=== PATIENT | male | born 1940 | race Caucasian/White ===

== ENCOUNTER 2017-09-17 16:12 | Outpatient (CLI) | payer MEDICARE ==
[2017-09-17 16:55] LABS: Hematocrit 35.3 % (42.0-52.0); Mean Platelet Volume 5.7 fL (7.4-10.4); Red Blood Cell (RBC) Count 3.87 mill/uL (4.70-6.10); White Blood Cell (WBC) Count 9.8 thou/uL (4.8-10.8)
[2017-09-17 17:27] LABS: Anion Gap 14 mmol/L (10-20); BUN (Urea Nitrogen) 31 mg/dL (8.4-25.7); Calc. Creatinine Clearance 0 mL/min (70-130); Calcium 9.4 mg/dL (7.8-10.44); Carbon Dioxide 24 mmol/L (23-31); Chloride 103 mmol/L (98-107); Estimated GFR-MDRD 47
== END 2017-09-17 16:13 | disposition home or self-care (01) ==
LOC: LABBT 16:12
PROVIDERS: ATTEND Thoracic Surgery (Cardiothoracic Vascular Surgery)
DX: Z01.812 Encounter for preprocedural laboratory examination (principal); I25.10 Atherosclerotic heart disease of native coronary artery without angina pectoris; Z95.1 Presence of aortocoronary bypass graft
CPT/HCPCS: 80048; 85027; 86850; 86900; 86901

== ENCOUNTER 2017-09-18 10:20 | Inpatient (IN) | payer MEDICARE ==
[2017-09-17 14:20] VITALS: BMI 44.3
[2017-09-18] MEDS ORDERED: Heparin 10,000 UNITS/1 ML VIAL 30,000 UNITS in Sodium Chloride 0.9% 1,000 ML FS SCH (11:45)
[2017-09-18] MEDS ORDERED: Midazolam HCl 2 mg/2 ml Vial ONE (12:00)
[2017-09-18] MEDS ORDERED: Fentanyl 100 MCG/2 ML VIAL ONE (12:11)
[2017-09-18] MEDS ORDERED: Vecuronium 10 MG VIAL ONE ×3 (12:12→14:55)
[2017-09-18] MEDS ORDERED: Midazolam HCl 5 mg/5 ml Vial ONE (12:12)
[2017-09-18] MEDS ORDERED: Dexmedetomidine 200 MCG/2 ML VIAL ONE (12:12)
[2017-09-18] MEDS ORDERED: CEFAZOLIN/Water 2 GM/20 ML SYRINGE ONE (12:42)
[2017-09-18] MEDS ORDERED: Insulin Regular 300 UNITS/3 ML VIAL ONE (13:55)
[2017-09-18] MEDS ORDERED: hydrALAZINE 20 MG/ML VIAL ONE (14:07)
[2017-09-18] MEDS ORDERED: Lidocaine 1% PF 5 ML VIAL ONE (14:55)
[2017-09-18] MEDS ORDERED: Nitroglycerin 50 MG/250 ML BOT ONE (14:55)
[2017-09-18] MEDS ORDERED: ePHEDrine/0.9% NaCl/PF SYRINGE 50 mg/10 ml ONE (14:55)
[2017-09-18] MEDS ORDERED: Glycopyrrolate 0.2 MG/ML 5 ML SYRINGE ONE (14:55)
[2017-09-18] MEDS ORDERED: PHENYLEPHRINE-NS 100 MCG/ML 10 ML SYRINGE ONE ×3 (14:55→15:22)
[2017-09-18] MEDS ORDERED: Esmolol 100 MG/10 ML VIAL ONE (14:55)
[2017-09-18] MEDS ORDERED: Heparin 30,000 units/30 ml VIAL ONE (14:55)
[2017-09-18] MEDS ORDERED: Protamine Sulfate 250 MG/25 ML VIAL ONE (14:55)
[2017-09-18] MEDS ORDERED: Aminocaproic Acid 5 GM/20 ML VIAL ONE (14:55)
[2017-09-18] MEDS ORDERED: Phenylephrine 10 MG/NS 250 ML 250 ML ONE (15:22)
[2017-09-18 18:11] LABS: Actual Bicarbonate (HCO3a) 22.1 mEq/L (22-26); CO2 Tension 44.8 mmHg (35.0-45.0); Calcium, Ionized 1.1 mmol/L (1.12-1.30); Hematocrit-ABG 29.3 % (42.0-52.0); Hemoglobin (Hb) 9.7 g/dL (14.0-18.0); O2 Tension (PaO2) 80.3 mmHg (80.0-100.0); pH, Arterial 7.31 (7.35-7.45)
[2017-09-18 18:13] LABS: Puncture Site RRA ART LINE
[2017-09-18] MEDS ORDERED: Bisacodyl 5 MG TAB PO PRN (18:24)
[2017-09-18] MEDS ORDERED: hydrALAZINE 20 MG/ML VIAL SLOW IVP PRN (18:24)
[2017-09-18] MEDS ORDERED: Guaifenesin DM 100-10/5 ML UDCUP PO PRN (18:24)
[2017-09-18] MEDS ORDERED: Hetastarch 6% 500 ML 500 ML IVPB PRN (18:24)
[2017-09-18] MEDS ORDERED: Nitroglycerin 50 MG/250 ML BOT 250 ML IVPB PRN (18:24)
[2017-09-18] MEDS ORDERED: Ondansetron HCl/PF 4 MG/2 ML Vial IVP PRN (18:24)
[2017-09-18] MEDS ORDERED: Promethazine HCl 25 MG/ML VIAL IM PRN (18:24)
[2017-09-18] MEDS ORDERED: HYDROcodone/Acetaminophen 5/325 mg Tablet PO PRN (18:24)
[2017-09-18] MEDS ORDERED: Fentanyl 100 MCG/2 ML VIAL SLOW IVP PRN (18:24)
[2017-09-18] MEDS ORDERED: Mag-Al 1200 mg/1200 mg/30 ML UDCUP PO PRN (18:24)
[2017-09-18] MEDS ORDERED: Bisacodyl 10 MG SUPP PR PRN (18:24)
[2017-09-18] MEDS ORDERED: DOPamine 400 MG/D5W 250 ML 250 ML IVPB PRN (18:24)
[2017-09-18] MEDS ORDERED: Potassium Chloride 20 MEQ/100 ML PREMIX BAG IVPB PRN (18:24)
[2017-09-18] MEDS ORDERED: Post-Op Insulin Drip Protocol IVPB SCH (18:24)
[2017-09-18] MEDS ORDERED: Midazolam HCl 2 mg/2 ml Vial SLOW IVP SCH (18:30)
[2017-09-18] MEDS ORDERED: Morphine 4 MG/ML VIAL SLOW IVP PRN (18:39)
[2017-09-18 18:44] LABS: INR-International Normal Ratio 1.3; Prothrombin Time 16.1 SEC (12.0-14.7)
[2017-09-18 18:45] LABS: PTT 30.1 SEC (22.9-36.1)
[2017-09-18] MEDS ORDERED: Dextrose 5% in Water 1,000 ML IV PRN (18:48)
[2017-09-18] MEDS ORDERED: Dextrose 50% Abboject 50 ML SYRINGE IVP PRN (18:48)
[2017-09-18 18:56] LABS: Band 27 % (5-11); Hemoglobin 9.9 g/dL (14.0-18.0); Lymphocytes 7 % (21-51); MDiff Complete? YES; Mean Corpuscular HGB CONC 32.6 g/dL (32.0-36.0); Mean Platelet Volume 5.8 fL (7.4-10.4); Monocytes 3 % (0-10); Neutrophil 62 % (42-75); PLT Morphology Comment Appears Adequate; Platelet Count 270 thou/uL (130-400); Red Blood Cell (RBC) Count 3.31 mill/uL (4.70-6.10)
[2017-09-18 18:57] LABS: Anion Gap 12 mmol/L (10-20); BUN (Urea Nitrogen) 29 mg/dL (8.4-25.7); Calc. Creatinine Clearance 91 mL/min (70-130); Carbon Dioxide 21 mmol/L (23-31); Chloride 107 mmol/L (98-107); Estimated GFR-MDRD 52; Glucose 145 mg/dL (83-110); Potassium 4.9 mmol/L (3.5-5.1); Sodium 135 mmol/L (136-145)
[2017-09-18] MEDS: Fentanyl 100 MCG/2 ML VIAL SLOW IVP PRN (19:00)
[2017-09-18] MEDS: Sodium Chloride 0.9% 1,000 ML IV SCH (19:03)
--- NOTE | 2017-09-18 21:00 | RAD ---
AP VIEW CHEST 09/18/17 HISTORY: Status post open heart surgery. AP view chest is obtained on 09/18/17. COMPARISON: Comparison made to a previous exam from 05/04/15. AP view chest demonstrates sternotomy wires. The patient is intubated. A left sided chest tube is in place. There is a right subclavian central line distal tip overlying the right atrium. Pulmonary vasc ular congestion is seen. IMPRESSION: Cardiomegaly and post thoracotomy changes. Endotracheal tube is in good position. No evidence of hemo or pneumothorax seen. POS: [facility]
[2017-09-18 21:21] LABS: Actual Bicarbonate (HCO3a) 20.3 mEq/L (22-26); Base Excess (BEa) -5.5 mEq/L (0 (+/-) 2.5); CO2 Tension 41.3 mmHg (35.0-45.0); Calcium, Ionized 1.1 mmol/L (1.12-1.30); Hematocrit-ABG 32.4 % (42.0-52.0); Hemoglobin (Hb) 10.5 g/dL (14.0-18.0); O2 Tension (PaO2) 97.3 mmHg (80.0-100.0); pH, Arterial 7.31 (7.35-7.45)
[2017-09-18 21:30] LABS: Puncture Site RRA ART LINE
[2017-09-18 21:33] LABS: ALV-art Gradient 566.075 (0-20)
[2017-09-18 21:37] LABS: Actual Bicarbonate (HCO3a) 25.6 mEq/L (22-26); Base Excess (BEa) -5.3 mEq/L (0 (+/-) 2.5); Calcium, Ionized 1.2 mmol/L (1.12-1.30); Hematocrit-ABG 35.5 % (42.0-52.0); Hemoglobin (Hb) 10.9 g/dL (14.0-18.0); O2 Tension (PaO2) 74.4 mmHg (80.0-100.0)
[2017-09-18 21:39] LABS: Puncture Site RRA ARTERIAL
[2017-09-18] MEDS: Famotidine/PF 20 mg/2ml Vial SLOW IVP SCH (21:40)
[2017-09-18] MEDS: CEFAZOLIN/Water 2 GM/20 ML SYRINGE SLOW IVP SCH (21:40)
[2017-09-18] MEDS: Simvastatin 40 MG TAB PO SCH (21:41)
[2017-09-18] MEDS ORDERED: SUGAMMADEX SODIUM 200 MG/2 ML VIAL IVP SCH (21:45)
[2017-09-18] MEDS: Ketorolac Tromethamine 30 MG/ML VIAL IVP SCH (23:36)
[2017-09-19 00:42] LABS: Hemoglobin 9.7 g/dL (14.0-18.0)
[2017-09-19 00:50] LABS: Potassium 5.5 mmol/L (3.5-5.1)
[2017-09-19] MEDS: rOPINIRole HCl 0.5 MG TAB PO PRN ×3 (01:15→20:13)
[2017-09-19] MEDS: HYDROcodone/Acetaminophen 5/325 mg Tablet PO PRN ×4 (01:18→19:46)
[2017-09-19 04:23] LABS: #Lymphocytes 0.4 thou/uL (1.20-3.40); #Monocytes 0.8 thou/uL (0.11-0.59); #Neutrophils 12.9 thou/uL (1.40-6.50); %Eosinophils 0.1 % (0.0-10.0); %Lymphocytes 2.9 % (21.0-51.0); %Monocytes 5.6 % (0.0-10.0); %Neutrophils 91.4 % (42.0-75.0); Hemoglobin 8.9 g/dL (14.0-18.0); Mean Corpuscular HGB CONC 33.3 g/dL (32.0-36.0); Mean Corpuscular Hemoglobin 30.7 pg (27.0-31.0); Mean Corpuscular Volume 92.2 fl (80.0-94.0); Platelet Count 220 thou/uL (130-400); RBC Distribution Width 17.9 % (11.5-14.5); Red Blood Cell (RBC) Count 2.91 mill/uL (4.70-6.10); White Blood Cell (WBC) Count 14.1 thou/uL (4.8-10.8)
[2017-09-19 04:34] LABS: Anion Gap 13 mmol/L (10-20); BUN (Urea Nitrogen) 34 mg/dL (8.4-25.7); Calc. Creatinine Clearance 76 mL/min (70-130); Carbon Dioxide 23 mmol/L (23-31); Chloride 107 mmol/L (98-107); Estimated GFR-MDRD 43; Glucose 128 mg/dL (83-110); Potassium 5.7 mmol/L (3.5-5.1); Sodium 137 mmol/L (136-145)
[2017-09-19] MEDS: Sodium Chloride 0.9% 1,000 ML IV SCH ×2 (05:21→16:14)
[2017-09-19] MEDS: Ketorolac Tromethamine 30 MG/ML VIAL IVP SCH (05:21)
[2017-09-19] MEDS: CEFAZOLIN/Water 2 GM/20 ML SYRINGE SLOW IVP SCH ×2 (05:21→13:16)
[2017-09-19] MEDS: Levothyroxine Sodium 150 MCG TAB PO SCH (05:21)
[2017-09-19] MEDS ORDERED: Aspirin 325 MG TAB PO SCH (08:00)
--- NOTE | 2017-09-19 08:45 | RAD ---
AP VIEW OF CHEST: Date: 09/19/17 INDICATION: Postop open heart surgery. COMPARISON: 09/18/17 at 1757 hours. FINDINGS: Since the comparison examination, the patient has been extubated. The left-sided thoracostomy tube is unchanged in position. Right subclavian central venous catheter is stable. Midline sternotomy change s are stable. Mild cardiomegaly persists. There is improvement in the central edema and pulmonary vas cular congestion seen from the comparison examination. There are low lung volumes present. No definit e air space consolidation or pleural effusion is evident. No definite pneumothorax is demonstrated. IMPRESSION: 1. Interval extubation. 2. Improvement in the central edema pattern and pulmonary vascular congestion seen on the prior exam . There is stable mild to moderate cardiomegaly. 3. No pneumothorax. 4. Stable right subclavian central venous catheter and left-sided thoracostomy tube. POS: [facility]
[2017-09-19] MEDS: Fentanyl 100 MCG/2 ML VIAL SLOW IVP PRN ×2 (09:41→16:16)
[2017-09-19] MEDS: Famotidine/PF 20 mg/2ml Vial SLOW IVP SCH ×2 (09:46→20:14)
[2017-09-19] MEDS: Tamsulosin HCl 0.4 MG CAP PO SCH (09:47)
--- NOTE | 2017-09-19 11:26 | PDOC.CTH ---
<Britney Cobian - Last Filed: 09/19/17 11:24> Cardiology Progress Note - Subjective The pt seen and examined. No overnight events. No cardiac complaints. Complains of sharp pain at surgical site and CT sites. - Objective Vital Signs Temp Pulse Resp Pulse Ox 09/19/17 07:35 59 L 25 H 100 09/19/17 07:00 98.4 F 09/19/17 05:03 61 20 100 09/19/17 04:00 98.1 F 09/19/17 01:13 58 L 26 H 100 09/19/17 00:00 98.0 F 100 Weight 297 lb 6.457 oz 09/18/17 09/19/17 09/20/17 06:59 06:59 06:59 Intake Total 1399.7 480 Output Total 780 70 Balance 619.7 410 - Physical Examination General/Neuro: alert & oriented x3 Neck: no JVD present Lungs: CTA (diminished at bases), other: Heart: RRR Extremities: other: (1-2+ pitting BLE edemas) Other PE findings: On ADRIEL - Telemetry Telemetry Rhythm: SR 80s - Labs Result Diagrams: 09/19/17 03:35 09/19/17 03:35 - Assessment/Plan 1. CAD with S/p CABG x2 on 09/18/17 - stable; on ASA and Statin; May start BBlocker when his VS is stable; cont. monitor on tele 2. HTN - stable; cont monitor 3. Hyperlipidemia - on Statin med 4. Borderline DM - on ACHS BG check with SS Insulin 5. Sleep Apnea - Cpap machine at bedside 6. Obesity - MAR reviewed Review of Systems - Review of Systems Constitutional: reports: no symptoms reported EENTM: reports: no symptoms reported Respiratory: reports: no symptoms reported Cardiac (ROS): reports: no symptoms reported ABD/GI: reports: no symptoms reported : reports: no symptoms reported Musculoskeletal: reports: see HPI Skin: reports: see HPI <Glenn Cox - Last Filed: 09/19/17 17:49> Cardiology Progress Note - Objective Vital Signs Temp Pulse Resp Pulse Ox 09/19/17 16:00 98.1 F 09/19/17 12:00 98.7 F 09/19/17 08:00 98.4 F 69 25 H 96 09/19/17 07:35 59 L 25 H 100 09/19/17 07:00 98.4 F Weight 297 lb 6.457 oz 09/18/17 09/19/17 09/20/17 06:59 06:59 06:59 Intake Total 1399.7 2207 Output Total 780 475 Balance 619.7 1732 - Labs Result Diagrams: 09/19/17 03:35 09/19/17 03:35 - Assessment/Plan Pt. seen and evaluated by me. I agree with the A/P by the LIVE IN HOUSEKEEPER. The BP is still elevated this PM and will need to be better controlled prior to d/c.
[2017-09-19] MEDS: traMADol HCl 50 MG TAB PO PRN (11:28)
--- NOTE | 2017-09-19 14:11 | CON ---
DATE OF CONSULTATION: 09/19/2017 Mr. Goldstein underwent coronary bypass grafting yesterday. He was extubated and apparently decompensate d very quickly after extubation. He had BiPAP all night and then was weaned off BiPAP this morning. I was consulted because of his presence in the ICU. I have seen Mr. Goldstein in the past. In 2014, he was seeing me for complaints of shortness of breath a nd dizziness. He was actually orthostatic when I saw him. This was a visit and followup of an episo de of asthmatic bronchitis. He had an abnormal chest radiograph that we followed the density on his radiograph resolved with serial chest films. PFTs were done, which were normal during 2014. His dif fusion was normal as well. Hypertension and obesity were felt to be the biggest issues. At the time I had seen him, he was [place]to ng in a [place] [facility], trying to figure out what he was going to do with a permanent residence. I recommended a steroid inhaler in 05/2015 for followup to hopefully decrease frequency of asthmatic bronchitis episodes. He did not keep his next followup patient appointment with me and has not been seen since that time. He continued to have dyspnea on exertion. He tells me he has lost 60-70 pound s since he was last seen by me. He has not been hospitalized here since 2014. PAST MEDICAL HISTORY: 1. Remarkable for normal ejection fraction in 2014. 2. Hypertension. 3. Chronic kidney disease. 4. Diabetes. 5. Lipid disorder. 6. Degenerative arthritis. SOCIAL HISTORY: He is a nonsmoker, nondrinker. FAMILY HISTORY: Negative for lung disease at an early age. ALLERGIES: He has no drug allergies. MEDICATIONS: Medications have been reviewed. His only complaint today is chest discomfort at his incision, he still has chest tubes in. PHYSICAL EXAMINATION: VITAL SIGNS: Blood pressure 113/42, heart rate 70, respiratory rate is in the 20s, oximetry is 100% . HEENT: Pupils are equal. Sclerae is anicteric. NECK: Supple. LUNGS: Clear. HEART: Regular rhythm. S1 and S2 are normal. ABDOMEN: Soft. EXTREMITIES: Without asymmetry. LABORATORY DATA: White count 14.1, hemoglobin 8.9, platelets 220. Sodium 137, potassium 5.7, chloride 107, bicarbonate 23, BUN 34, creatinine 1.59. Creatinine was 2.0 3 in 2015 and 1.35 on admission. Blood gas last night was 7.31, CO2 41, pO2 97. After extubation, h e was 7.1, CO2 85, pO2 74. IMPRESSION: 1. Obesity. 2. Hypoventilation probably secondary to delayed clearance of anesthesia, this has resolved. 3. Status post coronary bypass grafting, clinically stable at this time. I will follow with the other physicians caring for him.
[2017-09-19] MEDS: Insulin Regular 300 UNITS/3 ML VIAL SC PRN ×2 (16:27→20:16)
[2017-09-19] MEDS: Simvastatin 40 MG TAB PO SCH (20:13)
[2017-09-20] MEDS: HYDROcodone/Acetaminophen 5/325 mg Tablet PO PRN ×4 (00:09→12:20)
[2017-09-20] MEDS: rOPINIRole HCl 0.5 MG TAB PO PRN ×3 (04:38→20:09)
[2017-09-20 04:59] LABS: #Eosinphils 0.1 thou/uL (0.0-0.7); #Lymphocytes 0.6 thou/uL (1.20-3.40); #Monocytes 0.8 thou/uL (0.11-0.59); #Neutrophils 7.7 thou/uL (1.40-6.50); %Basophils 0.1 % (0.0-1.0); %Eosinophils 0.7 % (0.0-10.0); %Lymphocytes 6.2 % (21.0-51.0); %Monocytes 8.6 % (0.0-10.0); %Neutrophils 84.4 % (42.0-75.0); Hemoglobin 8.1 g/dL (14.0-18.0); Mean Corpuscular HGB CONC 32.5 g/dL (32.0-36.0); Mean Corpuscular Hemoglobin 30.2 pg (27.0-31.0); Mean Corpuscular Volume 92.8 fl (80.0-94.0); Platelet Count 178 thou/uL (130-400); Red Blood Cell (RBC) Count 2.67 mill/uL (4.70-6.10); White Blood Cell (WBC) Count 9.2 thou/uL (4.8-10.8)
[2017-09-20 05:09] LABS: Anion Gap 11 mmol/L (10-20); BUN (Urea Nitrogen) 34 mg/dL (8.4-25.7); Calc. Creatinine Clearance 82 mL/min (70-130); Calcium 8.3 mg/dL (7.8-10.44); Carbon Dioxide 22 mmol/L (23-31); Chloride 108 mmol/L (98-107); Estimated GFR-MDRD 46; Glucose 152 mg/dL (83-110); Potassium 4.6 mmol/L (3.5-5.1); Sodium 136 mmol/L (136-145)
[2017-09-20] MEDS ORDERED: Furosemide 40 MG/4 ML VIAL SLOW IVP SCH ×2 (05:30→18:00)
[2017-09-20] MEDS: Levothyroxine Sodium 150 MCG TAB PO SCH (06:00)
[2017-09-20] MEDS: Insulin Regular 300 UNITS/3 ML VIAL SC PRN ×2 (06:01→12:20)
[2017-09-20] MEDS ORDERED: Zolpidem Tartrate 5 MG TAB PO PRN (06:57)
[2017-09-20] MEDS ORDERED: Dextrose 50% Abboject 50 ML SYRINGE SLOW IVP PRN (06:57)
[2017-09-20] MEDS ORDERED: Mineral Oil ENEMA PR PRN (06:57)
[2017-09-20] MEDS ORDERED: diphenhydrAMINE 25 MG CAP PO PRN (06:57)
[2017-09-20] MEDS ORDERED: Guaifenesin DM 100-10/5 ML UDCUP PO PRN (06:57)
[2017-09-20] MEDS ORDERED: Bisacodyl 10 MG SUPP PR PRN (06:57)
[2017-09-20] MEDS ORDERED: HumaLOG 300 UNITS/3 ML VIAL SC PRN (06:57)
[2017-09-20] MEDS ORDERED: Nitroglycerin 0.4 MG TAB 1 EACH SL PRN (06:57)
[2017-09-20] MEDS ORDERED: Dextrose 5% in Water 1,000 ML IV PRN (06:57)
[2017-09-20] MEDS ORDERED: Mag-Al 1200 mg/1200 mg/30 ML UDCUP PO PRN (06:57)
[2017-09-20] MEDS ORDERED: Sodium Chloride 0.9% 10 ML ONE (07:28)
--- NOTE | 2017-09-20 08:06 | RAD ---
PORTABLE AP CHEST XRAY: DATE: 09/20/17. HISTORY: Post open heart surgery. COMPARISON: 09/19/17. FINDINGS: Right subclavian central venous catheter remains in place. Postsurgical changes related to median st ernotomy are again noted. Pleural parenchymal changes of the left lung base are again seen probably related to left pleural effusion and atelectasis. The right lung remains clear. The cardiac silhoue tte is magnified by projection but does appear enlarged. IMPRESSION: 1. Increased density left lung base which may be related to either left pleural effusion and/or atel ectasis. 2. Cardiomegaly without overt congestive heart failure. POS: [facility]
[2017-09-20] MEDS: Potassium Chloride 10 MEQ TAB PO SCH (08:30)
[2017-09-20] MEDS: Spironolactone 25 MG TAB PO SCH (08:30)
[2017-09-20] MEDS: Tamsulosin HCl 0.4 MG CAP PO SCH (08:31)
[2017-09-20] MEDS: metFORMIN 500 MG TAB PO SCH ×2 (08:31→16:51)
[2017-09-20] MEDS: Allopurinol 300 MG TAB PO SCH (08:31)
[2017-09-20] MEDS: Aspirin 325 mg Enteric Coated Tablet PO SCH (08:35)
[2017-09-20] MEDS: Furosemide 40 MG TAB PO SCH (08:38)
--- NOTE | 2017-09-20 15:16 | PDOC.CTH ---
<Britney Cobian - Last Filed: 09/20/17 15:14> Cardiology Progress Note - Subjective The pt seen and examined. No overnight events. No cardiac complaints. He has walked to the keys today with PTs without any cardiac complaints. He is wearing Cpap at this time. - Objective Vital Signs Temp Pulse Pulse Pulse Resp BP BP 09/20/17 11:10 98.2 F 68 19 09/20/17 08:49 71 66 148/65 H 146/65 H 09/20/17 07:00 98.8 F 64 18 09/20/17 04:00 98.4 F BP Pulse Ox Pulse Ox Pulse Ox 09/20/17 11:10 136/64 94 L 09/20/17 08:49 95 93 L 09/20/17 07:00 148/66 H 93 L 09/20/17 04:00 Weight 297 lb 6.457 oz 09/19/17 09/20/17 09/21/17 06:59 06:59 06:59 Intake Total 1399.7 2555 Output Total 780 1325 1035 Balance 619.7 1230 -1035 - Physical Examination General/Neuro: alert & oriented x3 Neck: no JVD present Lungs: CTA (diminished at bases) Heart: RRR Abdomen: soft Extremities: other: (No edemas) - Telemetry Telemetry Rhythm: SR - Labs Result Diagrams: 09/20/17 04:40 09/20/17 04:40 - Assessment/Plan 1. CAD with S/p CABG x2 on 09/18/17 - stable; on ASA and Statin; Start Coreg 6.25mg BID from tonight; cont. monitor on tele 2. HTN - Start Coreg 6.25mg BID from tonight; cont. monitor 3. Hyperlipidemia - on Statin med 4. Borderline DM - on ACHS BG check with SS Insulin 5. Sleep Apnea - Cpap machine at bedside 6. Obesity - MAR reviewed Review of Systems - Review of Systems Constitutional: reports: no symptoms reported Respiratory: reports: see HPI Cardiac (ROS): reports: no symptoms reported ABD/GI: reports: no symptoms reported : reports: no symptoms reported <Glenn Cox - Last Filed: 09/20/17 18:59> Cardiology Progress Note - Objective Vital Signs Temp Pulse Pulse Pulse Resp BP BP 09/20/17 16:52 146/66 H 09/20/17 15:00 98.4 F 73 20 09/20/17 13:51 73 67 181/77 H 09/20/17 11:10 98.2 F 68 19 09/20/17 08:49 71 66 148/65 H 09/20/17 07:00 98.8 F 64 18 BP BP Pulse Ox Pulse Ox Pulse Ox 09/20/17 16:52 09/20/17 15:00 146/66 H 92 L 09/20/17 13:51 147/63 H 94 L 94 L 09/20/17 11:10 136/64 94 L 09/20/17 08:49 146/65 H 95 93 L 09/20/17 07:00 148/66 H 93 L Weight 297 lb 6.457 oz 09/19/17 09/20/17 09/21/17 06:59 06:59 06:59 Intake Total 1399.7 2555 450 Output Total 780 1325 2220 Balance 619.7 1230 -1770 - Labs Result Diagrams: 09/20/17 04:40 09/20/17 04:40 - Assessment/Plan Pt. seen and eval. by me. I agree with the A/P by the AUDIT REVIEWER. He is sitting in the chair with his CPAP mask on. No complaints at this time. Chest clear ant.,RRR. Mild edema.BP is on the high side. May need to add amlodipine. Hold LATANYA-I due to renal insuff. Consider beta-blockers but HR is on the low side.
--- NOTE | 2017-09-20 15:46 | PRG ---
DATE OF SERVICE: 09/20/2017 SERVICE: Pulmonary Medicine. INTERVAL HISTORY: The patient is breathing comfortably today. He is wearing his BiPAP or CPAP almos t continuously. He denies any current fevers, chills, nausea, vomiting or shortness of breath. He s uggests that he is wearing it because it seems to be easier for him to take a deep breath whenever he is using it. Deep breathing and cough is limited by his pain. He is requesting his [place] basically around the clock. PHYSICAL EXAMINATION: VITAL SIGNS: Afebrile, pulse 73, blood pressure 146/66, respirations 20, saturation 92% on room air. GENERAL: Patient is awake, alert, no apparent distress. LUNGS: Decent air entry. Dependent crackles are present. There is no prolonged expiratory phase or wheezing appreciated. HEART: Normal rate and regular. ABDOMEN: Soft, nontender, nondistended, bowel sounds positive. MUSCULOSKELETAL: No cyanosis or clubbing. He has got bilateral pitting, which is roughly 2+. GENITOURINARY: No Acosta catheter in place. NEUROLOGIC: Grossly nonfocal. LABORATORY DATA: WBC 9.2, hemoglobin 8.1. Platelets 178,000. Creatinine 1.49 and roughly stable. Basic metabolic profile is otherwise essentially unremarkable. IMAGING: Chest x-ray demonstrates interval removal of chest tubes. Left-sided pleural parenchymal o pacification is present. Cardiomegaly without overt heart failure is identified, though this film is underpenetrated. ASSESSMENT: 1. Acute hypoxic respiratory failure, improving. 2. Obstructive sleep apnea, severe. 3. Obesity hypoventilation syndrome. 4. Morbid obesity. 5. Coronary artery bypass graft, postoperative day #2. PLAN: The patient remains volume overloaded. I will provide him with a dose of Lasix this afternoon in order to promote mobilization of fluid. Pulmonary or Critical Care will continue to follow for t he time being.
[2017-09-20] MEDS: traMADol HCl 50 MG TAB PO PRN ×2 (16:51→20:09)
[2017-09-20] MEDS: Carvedilol 6.25 MG TAB PO SCH (16:52)
[2017-09-20] MEDS: Simvastatin 40 MG TAB PO SCH (20:03)
[2017-09-21] MEDS: traMADol HCl 50 MG TAB PO PRN ×3 (01:57→20:06)
[2017-09-21] MEDS: Levothyroxine Sodium 150 MCG TAB PO SCH (05:35)
[2017-09-21] MEDS: Tamsulosin HCl 0.4 MG CAP PO SCH (08:50)
[2017-09-21] MEDS: Spironolactone 25 MG TAB PO SCH (08:51)
[2017-09-21] MEDS: Aspirin 325 mg Enteric Coated Tablet PO SCH (08:51)
[2017-09-21] MEDS: Potassium Chloride 10 MEQ TAB PO SCH (08:51)
[2017-09-21] MEDS: Carvedilol 6.25 MG TAB PO SCH ×2 (08:52→18:17)
[2017-09-21] MEDS: metFORMIN 500 MG TAB PO SCH ×2 (08:52→18:17)
[2017-09-21] MEDS: Allopurinol 300 MG TAB PO SCH (08:53)
[2017-09-21] MEDS: HYDROcodone/Acetaminophen 5/325 mg Tablet PO PRN (08:54)
[2017-09-21] MEDS: Furosemide 40 MG TAB PO SCH (08:58)
[2017-09-21 11:27] LABS: Actual Bicarbonate (HCO3a) 23.6 mEq/L (22-26); Base Excess (BEa) -2.6 mEq/L (0 (+/-) 2.5); CO2 Tension 46.9 mmHg (35.0-45.0); Calcium, Ionized 1.2 mmol/L (1.12-1.30); Hematocrit-ABG 34.1 % (42.0-52.0); Hemoglobin (Hb) 10.9 g/dL (14.0-18.0); O2 Tension (PaO2) 118.8 mmHg (80.0-100.0); pH, Arterial 7.32 (7.35-7.45)
[2017-09-21 11:27] LABS: Actual Bicarbonate (HCO3a) 22.3 mEq/L (22-26); Base Excess (BEa) -4.2 mEq/L (0 (+/-) 2.5); CO2 Tension 46.9 mmHg (35.0-45.0); Calcium, Ionized 1.1 mmol/L (1.12-1.30); Hematocrit-ABG 32.1 % (42.0-52.0); Hemoglobin (Hb) 10.3 g/dL (14.0-18.0); O2 Tension (PaO2) 96.7 mmHg (80.0-100.0); pH, Arterial 7.29 (7.35-7.45)
[2017-09-21 11:31] LABS: Actual Bicarbonate (HCO3a) 21.9 mEq/L (22-26); Base Excess (BEa) -3.8 mEq/L (0 (+/-) 2.5); CO2 Tension 42.2 mmHg (35.0-45.0); Calcium, Ionized 1.1 mmol/L (1.12-1.30); Hematocrit-ABG 24.9 % (42.0-52.0); Hemoglobin (Hb) 8.3 g/dL (14.0-18.0); O2 Tension (PaO2) 76.1 mmHg (80.0-100.0); pH, Arterial 7.33 (7.35-7.45)
[2017-09-21 11:31] LABS: Base Excess (BEa) -4.9 mEq/L (0 (+/-) 2.5); Hematocrit-ABG 24.6 % (42.0-52.0); Hemoglobin (Hb) 8.2 g/dL (14.0-18.0); O2 Tension (PaO2) 133.4 mmHg (80.0-100.0); pH, Arterial 7.31 (7.35-7.45)
[2017-09-21] MEDS ORDERED: Furosemide 40 MG/4 ML VIAL SLOW IVP SCH (11:55)
--- NOTE | 2017-09-21 12:08 | PRG ---
DATE OF SERVICE: 09/21/2017 SUBJECTIVE: Giovanni Goldstein this morning is awake, alert, and responsive. He is in his BiPAP. Denies any pain or difficulty breathing. He is weak. PHYSICAL EXAMINATION: VITAL SIGNS: Sats are 90% on 2 liters, blood pressure 140/60, temperature 98, respirations 18. CHEST: Decreased breath sounds, no wheezing. CARDIAC: Normal S1 and S2. ABDOMEN: Soft, no masses. IMPRESSION: Morbid obesity, status post coronary artery bypass graft. Sleep apnea. PLAN: Continue CPAP. Continue aggressive PT and supportive care. Will follow.
--- NOTE | 2017-09-21 12:32 | PDOC.CTH ---
<Ian Cobianoko - Last Filed: 09/21/17 12:31> Cardiology Progress Note - Subjective The pt seen and examined. No overnight events. No cardiac complaints. He took [place] for the pain in his Lt leg which makes him very drowsy. - Objective Vital Signs Temp Pulse Resp BP BP Pulse Ox 09/21/17 08:52 140/63 09/21/17 08:00 98.2 F 64 17 140/63 96 09/21/17 04:00 98.4 F 79 15 131/63 94 L Weight 297 lb 6.457 oz 09/20/17 09/21/17 09/22/17 06:59 06:59 06:59 Intake Total 2555 690 240 Output Total 1325 3470 Balance 1230 -2780 240 - Physical Examination General/Neuro: alert & oriented x3 Neck: no JVD present Lungs: other: (very diminished at bases) Heart: RRR Abdomen: soft Extremities: other: (MSI and Lt saph graft sites BRIJESH) - Labs Result Diagrams: 09/20/17 04:40 09/20/17 04:40 - Assessment/Plan 1. CAD with S/p CABG x2 on 09/18/17 - stable; on ASA, BBlokcer, and Statin; cont. monitor on tele 2. HTN - Stable with current medication; Possible start amlodipine for HTN, but no LATANYA due to renal insufficiency 3. Hyperlipidemia - on Statin med 4. Borderline DM - on ACHS BG check with SS Insulin 5. Sleep Apnea - Cpap machine at bedside 6. Obesity - Weight management education given to the pt and family; He would like to re-start WHOLE 30 diet once he is d/veronika to home MAR reviewed Review of Systems - Review of Systems Constitutional: reports: no symptoms reported EENTM: reports: no symptoms reported Respiratory: reports: see HPI Cardiac (ROS): reports: no symptoms reported ABD/GI: reports: no symptoms reported : reports: no symptoms reported Musculoskeletal: reports: no symptoms reported <Glenn Cox - Last Filed: 09/21/17 14:35> Cardiology Progress Note - Objective Vital Signs Temp Pulse Pulse Pulse Resp BP BP 09/21/17 12:42 61 60 131/59 L 09/21/17 12:00 98.0 F 70 18 09/21/17 08:52 140/63 09/21/17 08:30 79 64 140/63 09/21/17 08:00 98.2 F 64 17 09/21/17 04:00 98.4 F 79 15 BP BP Pulse Ox Pulse Ox Pulse Ox 09/21/17 12:42 116/58 L 95 96 09/21/17 12:00 116/58 L 96 09/21/17 08:52 09/21/17 08:30 136/60 96 94 L 09/21/17 08:00 140/63 96 09/21/17 04:00 131/63 94 L Weight 297 lb 6.457 oz 09/20/17 09/21/17 09/22/17 06:59 06:59 06:59 Intake Total 2555 690 480 Output Total 1325 3470 Balance 1230 -2780 480 - Labs Result Diagrams: 09/20/17 04:40 09/20/17 04:40 - Assessment/Plan Pt. seen and eval. by me. I agree with the A/P by the APARTMENT LEASING CONSULTANT. He is sitting in the chair sleeping with his CPAP mask on. No complaints at this time. Chest clear ant.,RRR. Mild edema.BP is better. Hold LATANYA-I due to renal insuff. Consider beta-blockers but HR is on the low side.
[2017-09-21 16:27] LABS: Analyzer IN Cardio OR; Puncture Site ALINE
[2017-09-21 16:27] LABS: Analyzer IN Cardio OR; Puncture Site ALINE
[2017-09-21 16:28] LABS: Analyzer IN Cardio OR; Puncture Site ALINE
[2017-09-21 16:32] LABS: Actual Bicarbonate (HCO3v) 24 mEq/L (22-26); Base Excess -3.4 mEq/L (0 (+/- 2.5)); Calcium, Ionized 0.99 mmol/L (1.16-1.32); Chloride (ABG LAB) 101 mmol/L (98-106); Hematocrit-VBG 24.2 % (37-51); Hemoglobin (Hb) 7.9 g/dL (12.6-17.4); Potassium - ABG Lab 4.7 mmol/L (3.70-5.30); Sodium 136.7 mmol/L (133-146)
[2017-09-21 16:33] LABS: Analyzer IN Cardio OR; pH (venous) 7.26 (7.35-7.45)
[2017-09-21 16:37] LABS: Analyzer IN Cardio OR; Puncture Site ALINE
[2017-09-21] MEDS: Milk Of Magnesia 30 ML UDCUP PO PRN (18:17)
[2017-09-21] MEDS: rOPINIRole HCl 0.5 MG TAB PO PRN (20:03)
[2017-09-21] MEDS: Simvastatin 40 MG TAB PO SCH (20:03)
[2017-09-21] MEDS: Acetaminophen 325 MG TAB PO PRN (20:07)
[2017-09-22] MEDS: traMADol HCl 50 MG TAB PO PRN ×4 (02:09→21:06)
[2017-09-22] MEDS: Acetaminophen 325 MG TAB PO PRN ×4 (02:10→21:06)
[2017-09-22] MEDS: Levothyroxine Sodium 150 MCG TAB PO SCH (06:09)
[2017-09-22 06:31] LABS: #Eosinphils 0.3 thou/uL (0.0-0.7); #Monocytes 0.7 thou/uL (0.11-0.59); #Neutrophils 6.7 thou/uL (1.40-6.50); %Basophils 0.5 % (0.0-1.0); %Lymphocytes 11.9 % (21.0-51.0); %Monocytes 7.8 % (0.0-10.0); %Neutrophils 76.8 % (42.0-75.0); Hemoglobin 7.7 g/dL (14.0-18.0); Mean Corpuscular HGB CONC 32.8 g/dL (32.0-36.0); Mean Corpuscular Hemoglobin 30.3 pg (27.0-31.0); Mean Corpuscular Volume 92.6 fl (80.0-94.0); Mean Platelet Volume 6.1 fL (7.4-10.4); Platelet Count 229 thou/uL (130-400); RBC Distribution Width 18.1 % (11.5-14.5); Red Blood Cell (RBC) Count 2.53 mill/uL (4.70-6.10); White Blood Cell (WBC) Count 8.7 thou/uL (4.8-10.8)
[2017-09-22 06:57] LABS: Anion Gap 9 mmol/L (10-20); BUN (Urea Nitrogen) 49 mg/dL (8.4-25.7); Calc. Creatinine Clearance 82 mL/min (70-130); Calcium 8.5 mg/dL (7.8-10.44); Carbon Dioxide 28 mmol/L (23-31); Chloride 104 mmol/L (98-107); Estimated GFR-MDRD 46; Glucose 109 mg/dL (83-110); Potassium 4.3 mmol/L (3.5-5.1); Sodium 137 mmol/L (136-145)
[2017-09-22] MEDS: Carvedilol 6.25 MG TAB PO SCH ×2 (08:24→16:32)
[2017-09-22] MEDS: Aspirin 325 mg Enteric Coated Tablet PO SCH (08:24)
[2017-09-22] MEDS: metFORMIN 500 MG TAB PO SCH ×2 (08:25→16:33)
[2017-09-22] MEDS: Allopurinol 300 MG TAB PO SCH (08:25)
[2017-09-22] MEDS: Spironolactone 25 MG TAB PO SCH (08:25)
[2017-09-22] MEDS: Potassium Chloride 10 MEQ TAB PO SCH (08:25)
[2017-09-22] MEDS: Furosemide 40 MG TAB PO SCH (08:25)
[2017-09-22] MEDS: Tamsulosin HCl 0.4 MG CAP PO SCH (08:25)
[2017-09-22] MEDS: rOPINIRole HCl 0.5 MG TAB PO PRN ×2 (08:27→21:11)
[2017-09-22] MEDS: Milk Of Magnesia 30 ML UDCUP PO PRN (11:18)
--- NOTE | 2017-09-22 14:12 | PRG ---
DATE OF SERVICE: 09/22/2017 SUBJECTIVE: The patient this morning denies any difficulty breathing, no pain. PHYSICAL EXAMINATION: VITAL SIGNS: Sats are 95% on 2 liters, temperature 98, blood pressure 140/65. CHEST: Decreased breath sounds, no wheezing. CARDIAC: Normal S1 and S2. No gallops. ABDOMEN: Soft. No masses. LABORATORY: White count 8,000, hemoglobin and hematocrit 7 and 20, platelet count is normal, creatin ine 1.5. IMPRESSION: 1. Obstructive sleep apnea. 2. Coronary artery bypass graft. 3. Renal failure. PLAN: Continue PT. Continue CPAP, supportive care.
[2017-09-22] MEDS: Bisacodyl 5 MG TAB PO PRN (16:33)
[2017-09-22] MEDS: Simvastatin 40 MG TAB PO SCH (21:07)
[2017-09-23] MEDS: traMADol HCl 50 MG TAB PO PRN ×4 (03:40→22:01)
[2017-09-23] MEDS: Acetaminophen 325 MG TAB PO PRN ×4 (03:40→22:00)
[2017-09-23] MEDS: Levothyroxine Sodium 150 MCG TAB PO SCH (05:27)
[2017-09-23] MEDS: Allopurinol 300 MG TAB PO SCH (08:27)
[2017-09-23] MEDS: metFORMIN 500 MG TAB PO SCH ×2 (08:27→16:16)
[2017-09-23] MEDS: Potassium Chloride 10 MEQ TAB PO SCH (08:27)
[2017-09-23] MEDS: Tamsulosin HCl 0.4 MG CAP PO SCH (08:27)
[2017-09-23] MEDS: Furosemide 40 MG TAB PO SCH (08:27)
[2017-09-23] MEDS: Spironolactone 25 MG TAB PO SCH (08:27)
[2017-09-23] MEDS: Carvedilol 6.25 MG TAB PO SCH ×2 (08:28→16:16)
[2017-09-23] MEDS: Aspirin 325 mg Enteric Coated Tablet PO SCH (08:28)
[2017-09-23] MEDS: Milk Of Magnesia 30 ML UDCUP PO PRN (08:30)
[2017-09-23] MEDS: Bisacodyl 5 MG TAB PO PRN (08:30)
[2017-09-23] MEDS ORDERED: Polyethylene Glycol 3350 17 GM Packet PO PRN (08:59)
[2017-09-23] MEDS ORDERED: Metolazone 5 MG TAB PO SCH (09:00)
[2017-09-23] MEDS: rOPINIRole HCl 0.5 MG TAB PO PRN ×2 (16:18→22:00)
--- NOTE | 2017-09-23 18:36 | PRG ---
DATE OF SERVICE: 09/23/2017 SUBJECTIVE: On his BiPAP. Offers no new complaints, no cough, no wheezing. OBJECTIVE: VITAL SIGNS: Sats are 99%, pulse 56, temperature 97, blood pressure 129/60. CHEST: Clear. CARDIAC: Normal S1, S2. No gallops. ABDOMEN: Soft. No masses. PLAN: 1. Status post coronary artery bypass graft. 2. Obstructive sleep apnea, on CPAP. placement for the patient, neb treatments, PT and suppor tive care.
[2017-09-23] MEDS: Simvastatin 40 MG TAB PO SCH (20:47)
[2017-09-24] MEDS: Acetaminophen 325 MG TAB PO PRN ×3 (05:03→22:06)
[2017-09-24] MEDS: Levothyroxine Sodium 150 MCG TAB PO SCH (05:03)
[2017-09-24] MEDS: traMADol HCl 50 MG TAB PO PRN ×3 (05:03→22:06)
[2017-09-24 05:49] LABS: #Eosinphils 0.3 thou/uL (0.0-0.7); #Lymphocytes 1.1 thou/uL (1.20-3.40); #Monocytes 0.7 thou/uL (0.11-0.59); #Neutrophils 8.7 thou/uL (1.40-6.50); %Basophils 0.4 % (0.0-1.0); %Eosinophils 3.1 % (0.0-10.0); %Lymphocytes 9.9 % (21.0-51.0); %Monocytes 6.7 % (0.0-10.0); %Neutrophils 79.9 % (42.0-75.0); Hemoglobin 8.3 g/dL (14.0-18.0); Mean Corpuscular HGB CONC 33.1 g/dL (32.0-36.0); Mean Corpuscular Hemoglobin 30.5 pg (27.0-31.0); Mean Corpuscular Volume 92.2 fl (80.0-94.0); Mean Platelet Volume 6.1 fL (7.4-10.4); Platelet Count 335 thou/uL (130-400); RBC Distribution Width 18.3 % (11.5-14.5); Red Blood Cell (RBC) Count 2.72 mill/uL (4.70-6.10); White Blood Cell (WBC) Count 10.9 thou/uL (4.8-10.8)
[2017-09-24 05:59] LABS: Anion Gap 14 mmol/L (10-20); BUN (Urea Nitrogen) 48 mg/dL (8.4-25.7); Calc. Creatinine Clearance 85 mL/min (70-130); Calcium 9.3 mg/dL (7.8-10.44); Carbon Dioxide 26 mmol/L (23-31); Chloride 100 mmol/L (98-107); Estimated GFR-MDRD 46; Glucose 110 mg/dL (83-110); Potassium 4.9 mmol/L (3.5-5.1); Sodium 135 mmol/L (136-145)
[2017-09-24] MEDS: Allopurinol 300 MG TAB PO SCH (08:35)
[2017-09-24] MEDS: Spironolactone 25 MG TAB PO SCH (08:35)
[2017-09-24] MEDS: Carvedilol 6.25 MG TAB PO SCH ×2 (08:35→16:07)
[2017-09-24] MEDS: metFORMIN 500 MG TAB PO SCH ×2 (08:35→16:07)
[2017-09-24] MEDS: Furosemide 40 MG TAB PO SCH (08:36)
[2017-09-24] MEDS: Tamsulosin HCl 0.4 MG CAP PO SCH (08:36)
[2017-09-24] MEDS: Potassium Chloride 10 MEQ TAB PO SCH (08:36)
[2017-09-24] MEDS: Aspirin 325 mg Enteric Coated Tablet PO SCH (08:36)
[2017-09-24] MEDS: Milk Of Magnesia 30 ML UDCUP PO PRN (12:57)
[2017-09-24] MEDS: Bisacodyl 5 MG TAB PO PRN (12:57)
--- NOTE | 2017-09-24 14:04 | PDOC.CTH ---
<Britney Cobian - Last Filed: 09/24/17 14:01> Cardiology Progress Note - Subjective The pt seen and examined. No overnight events. No cardiac complaints. 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 He is in bed resting with Cpap on. He reported that he has walked with PTs today. - Objective Vital Signs Temp Pulse Resp BP BP Pulse Ox 09/24/17 08:27 97.5 F L 73 22 H 147/67 H 97 09/24/17 08:22 97.5 F L 73 22 H 09/24/17 04:00 97.7 F 67 18 151/67 H 94 L Weight 310 lb 09/23/17 09/24/17 09/25/17 06:59 06:59 06:59 Intake Total 1440 1480 Output Total 450 2100 Balance 990 -620 - Physical Examination General/Neuro: alert & oriented x3 Neck: no JVD present Lungs: CTA Heart: RRR Abdomen: soft Extremities: + femoral B - Telemetry Telemetry Rhythm: SR 60 - Labs Result Diagrams: 09/24/17 05:03 09/24/17 05:03 - Assessment/Plan 1. CAD with S/p CABG x2 on 09/18/17 - stable; on ASA, BBlokcer, and Statin; cont. monitor on tele 2. HTN - Stable with current medication; Possible start amlodipine for HTN, but no LATANYA due to renal insufficiency 3. Hyperlipidemia - on Statin med 4. Borderline DM - on ACHS BG check with SS Insulin 5. Sleep Apnea - Cpap machine at bedside 6. Obesity - Weight management education given to the pt 7. constipation - No BM since 09/18/17; He has another med and prune juice today MAR reviewed Review of Systems - Review of Systems Constitutional: reports: no symptoms reported EENTM: reports: no symptoms reported Respiratory: reports: no symptoms reported Cardiac (ROS): reports: no symptoms reported ABD/GI: reports: no symptoms reported : reports: no symptoms reported Musculoskeletal: reports: no symptoms reported Skin: reports: no symptoms reported Neurological: reports: no symptoms reported <Glenn Cox - Last Filed: 09/24/17 15:01> Cardiology Progress Note - Objective Vital Signs Temp Pulse Pulse Pulse Resp BP BP 09/24/17 10:50 63 65 152/74 H 124/58 L 09/24/17 08:27 97.5 F L 73 22 H 09/24/17 08:22 97.5 F L 73 22 H 09/24/17 04:00 97.7 F 67 18 BP BP Pulse Ox Pulse Ox Pulse Ox 09/24/17 10:50 96 97 09/24/17 08:27 147/67 H 97 09/24/17 08:22 09/24/17 04:00 151/67 H 94 L Weight 310 lb 09/23/17 09/24/17 09/25/17 06:59 06:59 06:59 Intake Total 1440 1480 Output Total 450 2100 Balance 990 -620 - Labs Result Diagrams: 09/24/17 05:03 09/24/17 05:03 - Assessment/Plan Pt. seen and eval. by me. I agree with the A/P by the PAVING FOREMAN. He is deconditioned due to lack of activity. Chest clear, RRR. He will likely be discharged to home or rehab. today. I will see him back in the office in about 1 month.
[2017-09-24] MEDS: rOPINIRole HCl 0.5 MG TAB PO PRN ×2 (16:07→22:00)
[2017-09-24] MEDS: Simvastatin 40 MG TAB PO SCH (22:06)
[2017-09-25] MEDS: Levothyroxine Sodium 150 MCG TAB PO SCH (05:45)
[2017-09-25] MEDS: Acetaminophen 325 MG TAB PO PRN (06:31)
[2017-09-25] MEDS: Potassium Chloride 10 MEQ TAB PO SCH (08:35)
[2017-09-25] MEDS: Carvedilol 6.25 MG TAB PO SCH (08:35)
[2017-09-25] MEDS: metFORMIN 500 MG TAB PO SCH (08:36)
[2017-09-25] MEDS: Aspirin 325 mg Enteric Coated Tablet PO SCH (08:36)
[2017-09-25] MEDS: Furosemide 40 MG TAB PO SCH (08:36)
[2017-09-25] MEDS: Tamsulosin HCl 0.4 MG CAP PO SCH (08:36)
[2017-09-25] MEDS: Allopurinol 300 MG TAB PO SCH (08:36)
[2017-09-25] MEDS: traMADol HCl 50 MG TAB PO PRN ×2 (08:39→15:32)
[2017-09-25] MEDS: Spironolactone 25 MG TAB PO SCH (08:41)
--- NOTE | 2017-09-25 09:56 | PRG ---
DATE OF SERVICE: 09/24/2017 SUBJECTIVE: Mr. Goldstein is afebrile. PHYSICAL EXAMINATION: VITAL SIGNS: Heart rate is 59, respiratory rate is 16, oximetry is 97%. He is on room air, blood pr essure 108/53. LUNGS: Clear. HEART: Regular rhythm. ABDOMEN: Soft. LABORATORY DATA: White count yesterday was 10.9, hemoglobin 8.3. Electrolytes yesterday were normal . Creatinine was 1.49. IMPRESSION: 1. Status post coronary artery bypass grafting with postop hypoventilation. 2. Obstructive sleep apnea, compliant with continuous positive airway pressure. He thinks that it h as been a year since his sleep study, so I recommended him that he seen me in 2-3 months after he rec overs from his heart surgery for a repeat continuous positive airway pressure titration. 3. Deconditioning. He is complaining of dizziness when he sits up, I suspect he is getting orthosta tic. He is currently being evaluated to transfer over to inpatient rehabilitation. He is medically stable in my opinion.
[2017-09-25 12:15] VITALS: TEMP 98
--- NOTE | 2017-09-25 12:55 | PDOC.CTH ---
Cardiology Progress Note - Subjective the pt seen and examined. No overnight events. No cardiac complaints. The pt is ready to tx to Rehab today. He had some dizziness when he was up to bedside commode and exercising with PTs today. - Objective Vital Signs Temp Pulse Resp BP Pulse Ox 09/25/17 12:15 98.0 F 77 16 109/53 L 93 L 09/25/17 07:32 97.5 F L 59 L 16 97 09/25/17 07:31 97.5 F L 59 L 16 108/53 L 97 09/25/17 04:00 97.8 F 59 L 16 129/63 96 Weight 304 lb 8 oz 09/24/17 09/25/17 09/26/17 06:59 06:59 06:59 Intake Total 1480 1360 480 Output Total 2100 3350 600 Balance -620 -1989 -120 - Physical Examination General/Neuro: alert & oriented x3 Neck: no JVD present Lungs: CTA (diminished at bases) Heart: RRR Abdomen: soft Extremities: other: (1-2+ pitting edemas) - Telemetry Telemetry Rhythm: SR - Labs Result Diagrams: 09/24/17 05:03 09/24/17 05:03 - Assessment/Plan 1. CAD with S/p CABG x2 on 09/18/17 - stable; on ASA, BBlokcer, and Statin; cont. monitor on tele 2. HTN - Stable with current medication; Possible start amlodipine for HTN, but no LATANYA due to renal insufficiency 3. Hyperlipidemia - on Statin med 4. Borderline DM - on ACHS BG check with SS Insulin 5. Sleep Apnea - Cpap machine at bedside 6. Obesity - Weight management education given to the pt MAR reviewed Review of Systems - Review of Systems Constitutional: reports: no symptoms reported EENTM: reports: no symptoms reported Respiratory: reports: no symptoms reported Cardiac (ROS): reports: no symptoms reported ABD/GI: reports: no symptoms reported : reports: no symptoms reported Musculoskeletal: reports: no symptoms reported
[2017-09-25 13:43] VITALS: BP 131/60
--- NOTE | 2017-09-26 14:38 | DIS ---
HOSPITAL COURSE: This is a 300-pound gentleman, who had undergone cardiac catheterization at the out patient facility, and was found to have 2-vessel coronary disease, not amenable to percutaneous treat ment. He was admitted and underwent 2-vessel bypass grafting to his LAD and right posterolateral on 09/18/2017, receiving no perioperative transfusions. The night of surgery, he had some respiratory c ompromise due to somnolence and was seen by Anesthesia and treated with BiPAP. He subsequently did w ell. Creatinine was somewhat elevated as had been preop, but remained stable in the one and a half r jaren. He had his chest tubes removed on the second postoperative day, was transferred to the floor w here he made good progress. Discharge was delayed due to delays in plans for placement. Ultimately, the patient wishing to go to rehab rather than home. He was walking independently and could have go ne home, but his had the flu and he did not want to go home. He was discharged on 09/25/2017 on aspirin 1 a day, Coreg 6.25 b.i.d., Lasix 40 daily, potassium 10 daily, tramadol as needed for pain, ropinirole 0.5 four times a day, Flomax daily, spironolactone 50 a day, atorvastatin 20 a day, allop urinol 300 a day, levothyroxine 150 mcg a day, gabapentin as needed. Discharge and followup instruct ions were given.
--- NOTE | 2017-09-26 14:38 | OP ---
DATE OF PROCEDURE: 09/18/2017 PREOPERATIVE DIAGNOSES: Coronary artery disease and morbid obesity. POSTOPERATIVE DIAGNOSES: Coronary artery disease and morbid obesity. PROCEDURES: Coronary bypass graft x2, left internal mammary artery to the LAD and saphenous vein gra ft to right posterolateral. SURGEON: Ifeanyi Serra M.D. MACHINE TOOL DESIGNER: Jhonny Moncada M.D. TRANSFUSION: None. PROCEDURE IN DETAIL: After adequate anesthesia had been obtained, the patient was prepped and draped . His arms were placed on supports extending laterally and above his head. Due to his size, he coul d not fit on the table with his arm put aside and allow the surgeon and/sampling theory teacher to get close debora ugh to work. Dr. Moncada initially harvested left greater saphenous vein above the knee; however, it was much too large to use and therefore harvested a segment from below the knee. I performed a simul taneous median sternotomy. Left internal mammary artery was harvested following which the patient wa s heparinized, the mammary divided distally. The pericardium was opened and as expected aorta was qu ite short and was cannulated above the pericardial reflection. Right atrium was cannulated and cardi opulmonary bypass was instituted. After obtaining visualization of the grafting vessels, the aorta w as cross-clamped and a liter of [place] cardioplegic solution was given. Distal anastomoses were co mpleted following which, the cross-clamp was removed and the partial occluding clamp placed, and a si ngle proximal anastomosis performed on the aortic root. Following this, the patient was weaned from cardiopulmonary bypass, cannulas were removed, and protamine given systemically. Aortic cannulation site secured with a 4-0 Prolene suture. Mediastinal and left pleural drains were placed, following w hich the sternum was reapproximated with #7 interrupted wire. Subcutaneous tissue and skin were clos ed in layers and the sternum was treated with vancomycin paste, platelet-enriched blood, and platelet -poor plasma. Subcutaneous tissue and skin were closed in layers and the patient is to be taken to [facility] ICU in guarded condition.
--- NOTE | 2017-10-06 13:23 | EKG ---
Test Reason : Blood Pressure : / mmHG Vent. Rate : 075 BPM Atrial Rate : 075 BPM P-R Int : 220 ms QRS Dur : 094 ms QT Int : 384 ms P-R-T Axes : 031 -30 049 degrees QTc Int : 428 ms Sinus rhythm with 1st degree A-V block Left axis deviation Incomplete right bundle branch block Abnormal ECG When compared with ECG of 02-MAR-2015 11:57, No significant change was found Confirmed by NAA SHELLEY, RAND ([id number]) on 10/06/2017 1:22:53 PM Referred By: EV Confirmed By:RAND JACOME MD
== END 2017-09-25 15:35 | DRG 235 ==
LOC: SURG A 10:20 → CCU 14:25 → 2NO 09-20 06:49
PROVIDERS: ADMIT Thoracic Surgery (Cardiothoracic Vascular Surgery); ATTEND Thoracic Surgery (Cardiothoracic Vascular Surgery)
PROC: 02100Z9 Bypass Coronary Artery, One Artery from Left Internal Mammary, Open Approach (ICD-10-PCS; principal; 2017-09-18)
PROC: 021009W Bypass Coronary Artery, One Artery from Aorta with Autologous Venous Tissue, Open Approach (ICD-10-PCS; 2017-09-18)
PROC: 06BQ0ZZ Excision of Left Saphenous Vein, Open Approach (ICD-10-PCS; 2017-09-18)
PROC: 5A1221Z Performance of Cardiac Output, Continuous (ICD-10-PCS; 2017-09-18)
PROC: 5A09357 Assistance with Respiratory Ventilation, Less than 24 Consecutive Hours, Continuous Positive Airway Pressure (ICD-10-PCS; 2017-09-19)
PROC: 5A09357 Assistance with Respiratory Ventilation, Less than 24 Consecutive Hours, Continuous Positive Airway Pressure (ICD-10-PCS; 2017-09-20)
PROC: 5A09357 Assistance with Respiratory Ventilation, Less than 24 Consecutive Hours, Continuous Positive Airway Pressure (ICD-10-PCS; 2017-09-22)
PROC: 5A09357 Assistance with Respiratory Ventilation, Less than 24 Consecutive Hours, Continuous Positive Airway Pressure (ICD-10-PCS; 2017-09-23)
PROC: 5A09357 Assistance with Respiratory Ventilation, Less than 24 Consecutive Hours, Continuous Positive Airway Pressure (ICD-10-PCS; 2017-09-24)
PROC: 5A09357 Assistance with Respiratory Ventilation, Less than 24 Consecutive Hours, Continuous Positive Airway Pressure (ICD-10-PCS; 2017-09-25)
DX: I25.10 Atherosclerotic heart disease of native coronary artery without angina pectoris (principal); J96.01 Acute respiratory failure with hypoxia; I13.11 Hypertensive heart and chronic kidney disease without heart failure, with stage 5 chronic kidney disease, or end stage renal disease; E66.2 Morbid (severe) obesity with alveolar hypoventilation; Z68.41 Body mass index [BMI] 40.0-44.9, adult; N18.5 Chronic kidney disease, stage 5; E11.22 Type 2 diabetes mellitus with diabetic chronic kidney disease; G47.33 Obstructive sleep apnea (adult) (pediatric); R40.0 Somnolence; E87.70 Fluid overload, unspecified; E78.5 Hyperlipidemia, unspecified; M10.9 Gout, unspecified; J45.909 Unspecified asthma, uncomplicated; N40.0 Benign prostatic hyperplasia without lower urinary tract symptoms; K59.00 Constipation, unspecified
CPT/HCPCS: 36416; 71010; 80048; 82805; 85025; 85027; 85610; 85730; 86850; 86900; 86901; 93005; 93010; 93798; 94150; 94660; A4216; J0360; J1642; J1644; J1815; J1885; J1940; J2001; J2250; J2720; J3010; J7050; P9045; S0017; S0028

== ENCOUNTER 2017-11-25 02:44 | Emergency (ER) | payer MEDICARE ==
[2017-11-25] MEDS ORDERED: Ondansetron HCl/PF 4 MG/2 ML Vial ONE (03:15)
[2017-11-25 03:37] LABS: ALT (SGPT) 10 U/L (8-55); AST (SGOT) 11 U/L (5-34); Albumin 3.6 g/dL (3.4-4.8); Alkaline Phosphatase 77 U/L (40-150); Anion Gap 16 mmol/L (10-20); BUN (Urea Nitrogen) 33 mg/dL (8.4-25.7); Bilirubin, Total 3.1 mg/dL (0.2-1.2); Calc. Creatinine Clearance 0 mL/min (70-130); Calcium 9.2 mg/dL (7.8-10.44); Carbon Dioxide 20 mmol/L (23-31); Chloride 105 mmol/L (98-107); Estimated GFR-MDRD 43; Globulin 2.6 g/dL (2.4-3.5); Glucose 151 mg/dL (83-110); Potassium 4.8 mmol/L (3.5-5.1); Protein, Total 6.2 g/dL (5.8-8.1); Sodium 136 mmol/L (136-145)
[2017-11-25 03:45] LABS: Band 12 % (5-11); Eosinophils 3 % (0-10); Hemoglobin 9.6 g/dL (14.0-18.0); Lymphocytes 2 % (21-51); MDiff Complete? YES; Mean Corpuscular HGB CONC 34.7 g/dL (32.0-36.0); Mean Corpuscular Volume 86.5 fl (80.0-94.0); Mean Platelet Volume 5.1 fL (7.4-10.4); Monocytes 3 % (0-10); Neutrophil 80 % (42-75); Platelet Count 249 thou/uL (130-400); RBC Distribution Width 17.6 % (11.5-14.5); Red Blood Cell (RBC) Count 3.19 mill/uL (4.70-6.10)
[2017-11-25] MEDS ORDERED: Oseltamivir 75 MG CAP ONE (04:30)
[2017-11-25 04:38] LABS: Bilirubin Negative (Negative); Blood, Urine Trace (Negative); Clarity Clear (Clear); Glucose, Urine (Dipstick) Negative (Negative); Leukocyte Negative (Negative); Nitrite Negative (Negative); Protein, Urine (Dipstick) 30 mg/dL (Neg-Trace)
[2017-11-25 04:46] LABS: Bacteria/HPF None Seen HPF (None Seen); Hyaline Casts/LPF NONE SEEN LPF (0-3 Hyaline); RBC/HPF None Seen HPF (0-3); Squamous Epithelial 0-3 HPF (0-3); WBC/HPF 0-3 HPF (0-3)
--- NOTE | 2017-11-25 09:00 | RAD ---
CHEST 1 VIEW: HISTORY: Cough. COMPARISON: 09/20/17. FINDINGS: Cardiac silhouette is magnified and upper limits of normal in size. Shallow inspiration accentuates the pulmonary markings. Mediastinum is midline with postoperative changes apparent. There is no lob ar consolidation or evidence of pneumothorax. IMPRESSION: No active cardiopulmonary abnormalities are demonstrated. POS: [facility]
== END 2017-11-25 05:08 | disposition home or self-care (01) ==
LOC: SCSER 02:44
DX: J11.1 Influenza due to unidentified influenza virus with other respiratory manifestations (principal); E11.9 Type 2 diabetes mellitus without complications; G47.30 Sleep apnea, unspecified; I50.9 Heart failure, unspecified; E03.9 Hypothyroidism, unspecified; D50.0 Iron deficiency anemia secondary to blood loss (chronic); E78.5 Hyperlipidemia, unspecified; I10 Essential (primary) hypertension; E66.9 Obesity, unspecified; J45.909 Unspecified asthma, uncomplicated; Z79.899 Other long term (current) drug therapy; Z79.84 Long term (current) use of oral hypoglycemic drugs; Z79.82 Long term (current) use of aspirin
CPT/HCPCS: 71045; 80053; 81003; 81015; 83605; 85025; 87040; 87086; 87804; 93005; 96361; 96374; J2405

== ENCOUNTER 2018-02-02 12:25 | Emergency (ER) | payer MEDICARE ==
[2018-02-02 13:52] LABS: Anisocytosis SLIGHT = 6-15 cells (100X) (0-5/hpf); Band 7 % (5-11); Elliptocytes SLIGHT = 2-5 cells (100X) (0-1/hpf); Eosinophils 2 % (0-10); Hemoglobin 11.4 g/dL (14.0-18.0); Lymphocytes 3 % (21-51); MDiff Complete? YES; Mean Corpuscular HGB CONC 35.2 g/dL (32.0-36.0); Mean Corpuscular Hemoglobin 29.8 pg (27.0-31.0); Mean Corpuscular Volume 84.6 fl (80.0-94.0); Mean Platelet Volume 5.3 fL (7.4-10.4); Monocytes 8 % (0-10); Neutrophil 79 % (42-75); PLT Morphology Comment Appears Adequate; Platelet Count 218 thou/uL (130-400); RBC Distribution Width 16.5 % (11.5-14.5); Red Blood Cell (RBC) Count 3.83 mill/uL (4.70-6.10)
[2018-02-02 14:01] LABS: ALT (SGPT) 12 U/L (8-55); AST (SGOT) 9 U/L (5-34); Albumin 3.7 g/dL (3.4-4.8); Alkaline Phosphatase 100 U/L (40-150); Anion Gap 16 mmol/L (10-20); BUN (Urea Nitrogen) 26 mg/dL (8.4-25.7); Bilirubin, Total 2.3 mg/dL (0.2-1.2); Calc. Creatinine Clearance 0 mL/min (70-130); Calcium 9.1 mg/dL (7.8-10.44); Carbon Dioxide 23 mmol/L (23-31); Chloride 105 mmol/L (98-107); Estimated GFR-MDRD 49; Globulin 2.5 g/dL (2.4-3.5); Glucose 129 mg/dL (83-110); Potassium 4.8 mmol/L (3.5-5.1); Protein, Total 6.2 g/dL (5.8-8.1); Sodium 139 mmol/L (136-145)
[2018-02-02 14:02] LABS: CKMB 0.7 ng/mL (0-6.6); Troponin I Less than 0.010 ng/mL (< 0.028)
[2018-02-02] MEDS ORDERED: Azithromycin 250 MG TAB ONE (15:23)
[2018-02-02] MEDS ORDERED: Water For Inject, Bacteriostat 30 ML ONE (15:23)
[2018-02-02] MEDS ORDERED: methylPREDNISolone Sod Succ/PF 125 MG/2 ML VIAL ONE (15:23)
--- NOTE | 2018-02-02 15:40 | RAD ---
TWO VIEWS CHEST: DATE: 01/25/18. PROVIDED CLINICAL HISTORY: Dyspnea. FINDINGS: Comparison 05/04/15. Cardiac and mediastinal silhouette are within normal limits. Median sternotomy changes and atherosclerosis are redemonstrated. No focal consolidation, pleural fluid, or pneumothor ax apparent. IMPRESSION: No evidence for an acute cardiopulmonary process. POS: [facility]
--- NOTE | 2018-02-02 17:07 | CT ---
CT CHEST 02/02/18 PROVIDED CLINICAL HISTORY: Productive cough. FINDINGS: The heart, pericardium and great vessels are suboptimally evaluated without IV contrast but demonstra te an unremarkable CT appearance with the exception of vascular calcification and postoperative CABG change. Median sternotomy changes are seen. The lungs are free of suspicious opacity. Bronchial wall thickening is seen involving the basilar por tions of both lower lobes. There is no pleural fluid or pneumothorax apparent. There is no evidence f or thoracic lymph node enlargement with limitations due to lack of IV contrast material. The visualiz ed portions of the upper abdomen demonstrate no acute findings. The osseous structures demonstrate No concerning osteoblastic or osteolytic lesions. IMPRESSION: 1. No findings to suggest pneumonia. 2. Bronchial wall thickening involving the basilar segments of each lower lobe, presumably refle cting bronchial inflammation. POS: [facility]
== END 2018-02-02 15:35 | disposition home or self-care (01) ==
LOC: SCSER 12:25
DX: J20.9 Acute bronchitis, unspecified (principal); E11.9 Type 2 diabetes mellitus without complications; I11.0 Hypertensive heart disease with heart failure; I50.9 Heart failure, unspecified; E03.9 Hypothyroidism, unspecified; E78.5 Hyperlipidemia, unspecified; M10.9 Gout, unspecified; E66.9 Obesity, unspecified; D50.9 Iron deficiency anemia, unspecified; G47.30 Sleep apnea, unspecified; Z87.01 Personal history of pneumonia (recurrent); Z79.82 Long term (current) use of aspirin; Z79.899 Other long term (current) drug therapy; Z79.891 Long term (current) use of opiate analgesic
CPT/HCPCS: 36415; 71046; 71250; 80053; 82553; 83880; 84484; 85025; 93005; 94760; 96374; J2930; J7620

== ENCOUNTER 2018-06-27 00:36 | Emergency (ER) | payer MEDICARE ==
[2018-06-27 01:48] LABS: #Basophils 0.1 thou/uL (0.0-0.2); #Eosinphils 0.2 thou/uL (0.0-0.7); #Lymphocytes 1.2 thou/uL (1.20-3.40); #Monocytes 0.8 thou/uL (0.11-0.59); #Neutrophils 7.5 thou/uL (1.40-6.50); %Basophils 0.9 % (0.0-1.0); %Eosinophils 2.4 % (0.0-10.0); %Lymphocytes 12.2 % (21.0-51.0); %Monocytes 7.8 % (0.0-10.0); %Neutrophils 76.7 % (42.0-75.0); Hemoglobin 11.7 g/dL (14.0-18.0); Mean Corpuscular HGB CONC 35.5 g/dL (32.0-36.0); Mean Corpuscular Hemoglobin 30.2 pg (27.0-31.0); Mean Corpuscular Volume 85.2 fL (78.0-98.0); Mean Platelet Volume 5.7 fL (7.4-10.4); Platelet Count 238 thou/uL (130-400); RBC Distribution Width 15.8 % (11.5-14.5); Red Blood Cell (RBC) Count 3.86 mill/uL (4.70-6.10); White Blood Cell (WBC) Count 9.8 thou/uL (4.8-10.8)
[2018-06-27 01:50] LABS: ALT (SGPT) 10 U/L (8-55); AST (SGOT) 20 U/L (5-34); Albumin 3.5 g/dL (3.4-4.8); Alkaline Phosphatase 80 U/L (40-150); Anion Gap 16 mmol/L (10-20); BUN (Urea Nitrogen) 35 mg/dL (8.4-25.7); Bilirubin, Total 1.3 mg/dL (0.2-1.2); Calcium 8.8 mg/dL (7.8-10.44); Carbon Dioxide 23 mmol/L (23-31); Chloride 108 mmol/L (98-107); Globulin 2.4 g/dL (2.4-3.5); Glucose 133 mg/dL (83-110); Potassium 4.5 mmol/L (3.5-5.1); Protein, Total 5.9 g/dL (5.8-8.1); Sodium 142 mmol/L (136-145)
[2018-06-27 02:06] LABS: CKMB 0.8 ng/mL (0-6.6); Troponin I Less than 0.010 ng/mL (< 0.028)
[2018-06-27 02:34] LABS: Calc. Creatinine Clearance 0 mL/min (70-130); Estimated GFR-MDRD 50
[2018-06-27] MEDS ORDERED: traMADol HCl 50 MG TAB ONE (06:35)
--- NOTE | 2018-06-27 07:44 | RAD ---
FRONTAL AND LATERAL IMAGING OF THE CHEST: DATE: 06/27/18. COMPARISON: 02/02/18. HISTORY: Elevated blood pressure, shortness of breath. FINDINGS: Midline sternotomy wires are again noted. Heart and mediastinal contours are stable. There is no pn eumothorax, pleural fluid, focal consolidation, or alveolar edema. IMPRESSION: No acute findings. POS: [facility]
--- NOTE | 2018-06-27 08:14 | NM ---
PRELIMINARY REPORT/[facility]/EMERGENCY AFTER HOURS PROCEDURE: EXAM: NM Lung Perfusion and Ventilation Scan CLINICAL HISTORY: 78 years old, male; Signs and symptoms; Shortness of breath; Additional info: Shortness of breath, el evated d-dimer TECHNIQUE: Nuclear Medicine ventilation and perfusion images of the lungs were obtained in multiple projections following radiopharmaceutical inhalation followed by injection of Tc99m MAA. COMPARISON: No relevant prior studies available. FINDINGS: Ventilation images appear essentially unremarkable. Perfusion images of the right lung appear normal. Perfusion images of the left lung show a couple of subtle subsegmental/nonsegmental areas of slightly decreased perfusion. Scan can still be classified as low probability for pulmonary embolus. Up to 15 -- 20% of scans classified as low probability can still have pulmonary emboli. IMPRESSION: Low probability for pulmonary embolus, see above details. Thank you for allowing us to participate in the care of your patient. Dictated and Authenticated by: Alberto Chacon MD 06/27/2018 5:35 AM Central Time ([place] & [place]) FINAL REPORT NUCLEAR MEDICINE VENTILATION PERFUSION SCAN: FINDINGS/IMPRESSION: Agree with the preliminary interpretation provided above. Examination is low probability for pulmonary embolus. POS: [facility]
== END 2018-06-27 06:50 | disposition home or self-care (01) ==
LOC: SCSER 00:36
DX: I11.0 Hypertensive heart disease with heart failure (principal); I50.9 Heart failure, unspecified; E11.9 Type 2 diabetes mellitus without complications; E03.9 Hypothyroidism, unspecified; E78.5 Hyperlipidemia, unspecified; M10.9 Gout, unspecified; J18.9 Pneumonia, unspecified organism; Z79.899 Other long term (current) drug therapy
CPT/HCPCS: 71046; 78582; 80053; 82553; 83880; 84484; 85025; 85379; 93005; 99284; A9540; A9558

== ENCOUNTER 2018-09-12 09:43 | Inpatient (IN) | payer MEDICARE ==
[2018-09-12 10:21] LABS: Actual Bicarbonate (HCO3a) 23.2 mEq/L (22-28); Analyzer IN Cardio ER; Base Excess (BEa) -1.1 mEq/L (-2.0 to +3.0); CO2 Tension 37.3 mmHg (35.0-45.0); Calcium, Ionized 1.16 mmol/L (1.12-1.30); Carboxyhemoglobin (COHb) 1.6 gm% (0.0-3.0); O2 Tension (PaO2) 75.7 mmHg (> 70.0); pH, Arterial 7.41 (7.35-7.45)
[2018-09-12 10:22] LABS: ALV-art Gradient 77.315 (0-20); Puncture Site LRA
[2018-09-12] MEDS ORDERED: methylPREDNISolone Sod Succ/PF 125 MG/2 ML VIAL ONE (10:22)
[2018-09-12] MEDS ORDERED: Magnesium 2 GM/50 ML BAG (IN WATER) ONE (10:22)
[2018-09-12 10:41] LABS: #Eosinphils 0.4 thou/uL (0.0-0.7); #Lymphocytes 0.7 thou/uL (1.20-3.40); #Monocytes 0.7 thou/uL (0.11-0.59); #Neutrophils 7.2 thou/uL (1.40-6.50); %Basophils 0.3 % (0.0-1.0); %Eosinophils 4.5 % (0.0-10.0); %Monocytes 7.6 % (0.0-10.0); %Neutrophils 79.6 % (42.0-75.0); Hemoglobin 11.3 g/dL (14.0-18.0); Mean Corpuscular HGB CONC 31.3 g/dL (32.0-36.0); Mean Corpuscular Hemoglobin 29.2 pg (27.0-31.0); Mean Corpuscular Volume 93.1 fL (78.0-98.0); Mean Platelet Volume 6.6 fL (7.4-10.4); Platelet Count 244 thou/uL (130-400); RBC Distribution Width 18.7 % (11.5-14.5); Red Blood Cell (RBC) Count 3.87 mill/uL (4.70-6.10)
--- NOTE | 2018-09-12 11:04 | RAD ---
CHEST ONE VIEW: Comparison: 11-25-17 History: Shortness of breath. FINDINGS: There are sternotomy wires. There is atherosclerosis of the aorta. Normal cardiac silhouette. The pul monary vessels and hilum are normal. Costophrenic angles are clear. Lungs are well expanded. No conso lidation or mass. No pneumothorax or osseous abnormality. IMPRESSION: No acute cardiopulmonary process. POS: [facility]
[2018-09-12 11:15] LABS: ALT (SGPT) 9 U/L (8-55); AST (SGOT) 17 U/L (5-34); Albumin 3.6 g/dL (3.4-4.8); Alkaline Phosphatase 107 U/L (40-150); Anion Gap 16 mmol/L (10-20); BUN (Urea Nitrogen) 27 mg/dL (8.4-25.7); Bilirubin, Total 2.5 mg/dL (0.2-1.2); Calc. Creatinine Clearance 0 mL/min (70-130); Calcium 8.9 mg/dL (7.8-10.44); Carbon Dioxide 20 mmol/L (23-31); Chloride 108 mmol/L (98-107); Estimated GFR-MDRD 47; Globulin 2.2 g/dL (2.4-3.5); Glucose 154 mg/dL (83-110); Potassium 4.7 mmol/L (3.5-5.1); Protein, Total 5.8 g/dL (5.8-8.1); Sodium 139 mmol/L (136-145)
[2018-09-12] MEDS ORDERED: Dextrose 5% in Water 1,000 ML IV PRN (14:22)
[2018-09-12] MEDS ORDERED: Dextrose 50% Abboject 50 ML SYRINGE SLOW IVP PRN (14:22)
[2018-09-12] MEDS ORDERED: Ondansetron ODT 4 MG TAB PO PRN (14:22)
[2018-09-12] MEDS ORDERED: Acetaminophen 325 MG TAB PO PRN (14:22)
--- NOTE | 2018-09-12 16:10 | HP ---
PRIMARY CARE PROVIDER: Shweta Mcintyre MD Referred to the [facility] by [facility] for acute hypoxic respiratory failure. HISTORY OF PRESENT ILLNESS: The patient was complaining of a recent URI. He was hypersomnic yesterday. Today, he is short of breath. He has had a deep cough and wheezing. No fever. He was brought to the hospital as initial O2 saturation was 67, with nonaggressive therapy, it was in the 80s. He was placed on BiPAP. When I arrived, his saturations were running from 96% to 98% on BiPAP. PAST MEDICAL HISTORY: Coronary artery disease, post coronary artery bypass graft in September of 2017; hypertension; diabetes mellitus type 2, on no medicines; chronic lung disease, not asthma or emphysema by history; he born with only one kidney; has restless legs syndrome and nephropathy in his feet. CURRENT MEDICATIONS: 1. Ropinirole 0.5 mg four times a day. 2. Gabapentin 300 mg three times a day. 3. Flomax 0.4 mg twice a day. 4. Tramadol 50 mg p.o. q.6 hours p.r.n. 5. Lasix 20 mg a day. 6. Lipitor 20 mg a day. 7. Oxybutynin 24 Hour 10 mg a day. 8. Allopurinol 300 mg every other day. 9. Levothyroxine 200 mcg a day. 10. Spironolactone 50 mg every other day. 11. Aspirin 81 mg a day. 12. Coreg 6.25 mg twice a day. PAST SURGICAL HISTORY: Coronary artery bypass graft in 09/2017, total knee replacement in April of this year. FAMILY AND SOCIAL HISTORY: Father young of kidney disease. Mother lived until . He is . Full code status. is surrogate decision maker. No tobacco. No alcohol. REVIEW OF SYSTEMS: HEAD: He has had some dizziness in the past, but none recently. No headaches. No fainting. EYES: No double vision, blurred vision, flashing lights. EAR, NOSE, AND THROAT: No ear pain or drainage. No nasal bleeding. No trouble swallowing. CARDIAC: No chest pain, orthopnea, or paroxysmal nocturnal dyspnea. RESPIRATIONS: See present illness. GASTROINTESTINAL: No nausea, vomiting, diarrhea, constipation, or abdominal pain. GENITOURINARY: He has nocturia. No dysuria or hematuria. MUSCULOSKELETAL: Occasional swelling in his legs, no specific. He has neuropathy in his legs, for which he takes gabapentin and pain medications. NEUROLOGIC: Peripheral neuropathy in his legs. No strokes, seizures, or focal weakness. PSYCHIATRIC: No anxiety or depression. SKIN: He bruises easily. No rash. HEME/LYMPH: No tender or swollen lymph nodes in the axilla, inguinal, or cervical area. PHYSICAL EXAMINATION: GENERAL: He was alert and oriented. I had him take the BiPAP off. His O2 saturations have maintained in the 96+ range while I have been watching him over the past 15 minutes. He is able to talk without difficulty. VITAL SIGNS: Temperature was 97.9, pulse ranged from 62 to 87, respirations 20 to 24, blood pressure 144/80. HEENT: Examination of his head, eyes, ears, nose, and throat revealed pupils are equal, round, and reactive to light. Extraocular movements are intact. Sclerae white. Tympanic membranes are clear. Nose is clear. Oral mucous membranes are wet. Dental hygiene is good. NECK: Supple without jugular venous distention, adenopathy, or thyromegaly. CHEST: Clear to percussion. Breath sounds were somewhat diminished. He had fine expiratory wheezes. He had bilateral posterior rales, worse in the left lower lobe. HEART: Regular rate and rhythm. First and second heart sounds are clear. There are no murmurs or gallops. ABDOMEN: Protuberant. No hepatosplenomegaly. No masses. No tenderness. No bruits. EXTREMITIES: Reveal 2+ edema with no cyanosis or clubbing. Pulses; carotid, radial, femoral, and dorsalis pedis pulses intact, symmetric. SKIN: Warm and dry with ecchymoses on his arms. HEME/LYMPH: No tender or swollen lymph nodes in the axilla, inguinal, or cervical area. No petechial lesions. NEUROLOGIC: Cranial nerves 2 through 12 intact. Deep tendon reflex is symmetric. Moves all extremities. IMAGING STUDIES: EKG; regular sinus rhythm, left axis deviation, nonspecific ST-T abnormality, reviewed by me. Chest x-ray; no cardiomegaly, CHF, or infiltrate, reviewed by me. LABORATORY DATA: Comprehensive metabolic profile; sodium 139, potassium 4.7, chloride 108, CO2 of 20, BUN 27, creatinine 1.45, blood sugar 154, total bilirubin 2.5 with normal AST, ALT, and alkaline phosphatase. BNP 94.4. Troponin 0.01. Arterial blood gas; pH 7.41, pCO2 of 37, pO2 of 75 on 28% O2. White count normal at 9.0 with no left shift, hemoglobin 11.3, platelet count 244,000. ADMITTING DIAGNOSES: 1. Acute respiratory failure. 2. Chronic lung disease of some variety. 3. Coronary artery disease, post coronary artery bypass graft. 4. Diabetes mellitus type 2, on no medications. 5. Chronic kidney disease, level 3, based on solitary kidney. 6. Hypertension. 7. Restless legs syndrome. PLAN: The patient is currently off BiPAP. He will be given nebulizer therapies q.4 hours with 3 mL of DuoNeb. He will be given IV steroids, IV Levaquin. Accu-Cheks and sliding scale will be monitored. Home medicines will be reintroduced as appropriate. I expect the patient to be in the hospital in 2 to 3 days. He may need a pulmonary consult. We will not give one right at the moment. Job ID: [id number]
[2018-09-12 16:50] LABS: Troponin I 0.011 ng/mL (< 0.028)
[2018-09-12 19:22] LABS: Troponin I Less than 0.010 ng/mL (< 0.028)
[2018-09-13] MEDS ORDERED: Gabapentin 400 MG CAP PO SCH (03:00)
[2018-09-13] MEDS: Enoxaparin Sodium 30 MG/0.3 ML SYRINGE SC SCH (07:45)
[2018-09-13] MEDS ORDERED: Docusate 100 MG CAP PO PRN (09:00)
[2018-09-13] MEDS ORDERED: Oxybutynin ER 5 MG TAB PO SCH (09:00)
[2018-09-13] MEDS ORDERED: Furosemide 40 MG TAB PO SCH (09:00)
[2018-09-13] MEDS ORDERED: Spironolactone 25 MG TAB PO SCH (09:00)
[2018-09-13] MEDS ORDERED: Allopurinol 300 MG TAB PO SCH (09:00)
[2018-09-13] MEDS ORDERED: Non-Formulary Item 1 EACH (Oxybutynin Chloride [Oxybutynin Chloride Er] 10 MG) PO SCH (09:00)
[2018-09-13] MEDS: Aspirin 81 mg Enteric Coated Tablet PO SCH (09:35)
[2018-09-13] MEDS: rOPINIRole HCl 0.5 MG TAB PO SCH ×4 (09:35→20:18)
[2018-09-13] MEDS: Gabapentin 300 MG CAP PO SCH ×3 (09:37→20:17)
[2018-09-13] MEDS: Tamsulosin HCl 0.4 MG CAP PO SCH ×2 (09:41→20:17)
--- NOTE | 2018-09-13 11:28 | PDOC.PN ---
- Subjective Encounter Start Date: 09/13/18 Encounter Start Time: 09:30 Doing ok as long as he is on the CPAP and lying in bed. Reports a little SOB when off of the CPAP and talking to me. No fever. No cough. - Objective Resuscitation Status - Order Detail: 09/12/18 14:15 Resuscitation Status Routine Resuscitation Status: FULL: Full Resuscitation Vital Signs & Weight: Vital Signs (12 hours) Temp Pulse Resp BP Pulse Ox 09/13/18 07:54 90 L 09/13/18 07:52 98.3 F 54 L 20 164/65 H 90 L 09/13/18 04:00 97.9 F 62 20 142/62 H 91 L 09/12/18 23:59 98.3 F 70 20 160/70 H 92 L Weight Weight 303 lb 4.004 oz I&O: 09/12/18 09/13/18 09/14/18 06:59 06:59 06:59 Intake Total 251 Balance 251 Result Diagrams: 09/12/18 10:30 09/12/18 10:30 Additional Labs: Accuchecks 09/13/18 09/12/18 06:02 16:41 POC Glucose 206 H 228 H Phys Exam - Physical Examination Constitutional: NAD Morbidly obese. Scattered wheezing, minimal rales. Cardiovascular: RRR, no significant murmur, no rub Gastrointestinal: soft, non-tender, no distention, positive bowel sounds Musculoskeletal: no edema Neurological: non-focal Psychiatric: normal affect, A&O x 3 Dx/Plan (1) Acute on chronic respiratory failure with hypoxemia Code(s): J96.21 - ACUTE AND CHRONIC RESPIRATORY FAILURE WITH HYPOXIA Status: Acute Comment: Likely related to habitus. Discussed with Pulmonology. Continue nebs and supportive care. D-dimer ordered, but refused draw. (2) Morbid obesity Code(s): E66.01 - MORBID (SEVERE) OBESITY DUE TO EXCESS CALORIES Status: Chronic (3) CAD (coronary artery disease) Code(s): I25.10 - ATHSCL HEART DISEASE OF [place] CORONARY ARTERY W/O ANG PCTRS Status: Chronic (4) Diabetes mellitus Code(s): E11.9 - TYPE 2 DIABETES MELLITUS WITHOUT COMPLICATIONS Status: Chronic (5) Hypertension Code(s): I10 - ESSENTIAL (PRIMARY) HYPERTENSION Status: Chronic (6) Solitary kidney, congenital Code(s): Q60.0 - RENAL AGENESIS, UNILATERAL Status: Chronic (7) Hypothyroidism Code(s): E03.9 - HYPOTHYROIDISM, UNSPECIFIED Status: Acute - Plan * Resuming home meds for HTN, DM. * Pulmonology consult. Discussed with Dr. Stone. He will likely check ABG on CPAP to determine need for BIPAP. * Continue nebs.
[2018-09-13] MEDS: traMADol HCl 50 MG TAB PO SCH ×3 (12:41→20:17)
[2018-09-13] MEDS: Carvedilol 6.25 MG TAB PO SCH (17:01)
[2018-09-13] MEDS: Atorvastatin Calcium 20 MG TAB PO SCH (20:17)
[2018-09-13 20:25] LABS: #Lymphocytes 0.3 thou/uL (1.20-3.40); #Monocytes 0.6 thou/uL (0.11-0.59); #Neutrophils 8.6 thou/uL (1.40-6.50); %Basophils 0.2 % (0.0-1.0); %Eosinophils 0.3 % (0.0-10.0); %Lymphocytes 3.4 % (21.0-51.0); %Monocytes 6.4 % (0.0-10.0); %Neutrophils 89.7 % (42.0-75.0); Hemoglobin 10.3 g/dL (14.0-18.0); Mean Corpuscular HGB CONC 32.1 g/dL (32.0-36.0); Mean Corpuscular Hemoglobin 28.9 pg (27.0-31.0); Mean Corpuscular Volume 90.1 fL (78.0-98.0); Mean Platelet Volume 6.6 fL (7.4-10.4); Platelet Count 244 thou/uL (130-400); RBC Distribution Width 18.1 % (11.5-14.5); Red Blood Cell (RBC) Count 3.56 mill/uL (4.70-6.10); White Blood Cell (WBC) Count 9.6 thou/uL (4.8-10.8)
[2018-09-13 20:41] LABS: Anion Gap 14 mmol/L (10-20); BUN (Urea Nitrogen) 46 mg/dL (8.4-25.7); Calc. Creatinine Clearance 72 mL/min (70-130); Carbon Dioxide 21 mmol/L (23-31); Chloride 105 mmol/L (98-107); Estimated GFR-MDRD 39; Glucose 195 mg/dL (83-110); Potassium 4.4 mmol/L (3.5-5.1); Sodium 136 mmol/L (136-145)
--- NOTE | 2018-09-14 02:58 | CON ---
DATE OF CONSULTATION: 09/13/2018 SERVICE: Pulmonary Medicine. REASON FOR CONSULTATION: Respiratory failure. HISTORY OF PRESENT ILLNESS: The patient is a 78-year-old white male with past medical history significant for morbid obesity and obstructive sleep apnea. He has dyspnea on exertion chronically. His previous pulmonary function studies were really not too terribly remarkable. He certainly did not have any evidence of severe obstructive process. That being said, he was in his usual state of health until a week ago. He was visiting his family up in [place] when he started having a very mild and slow onset of myalgia, malaise, and in general just not feeling good. He denies having any sick contacts. That being said, his has come down with a very similar illness here in the last 48 hours. He then developed cough. This has been completely nonproductive. He got on a plane and came back here. On Sunday, things got a little bit worse, but on , things were so severe that he had a difficult time getting out of his chair and walking to the bathroom before coming back to his chair. He denies any current fevers or chills. He did not have any nausea or vomiting. He does not have any hot, red, swollen joints, rashes, dysuria, or diarrhea. He is, otherwise, in his usual state of health. PAST MEDICAL HISTORY: 1. Coronary artery disease. 2. Hypertension. 3. Dyslipidemia. 4. Type 2 diabetes mellitus. 5. Morbid obesity. 6. Obstructive sleep apnea. 7. Restless legs syndrome. 8. Neuropathy. PAST SURGICAL HISTORY: 1. Coronary artery bypass graft. 2. Total knee replacement of the right. FAMILY HISTORY: Noncontributory. SOCIAL HISTORY: Negative for alcohol, tobacco, or illicit drug use. He has no exposure to chemicals, dust, asbestos, or tuberculosis currently. ALLERGIES: NO KNOWN DRUG ALLERGIES. MEDICATIONS: List of his inpatient medications was reviewed. Multiple updates were made including changing the antibiotic, and steroid over to p.o. REVIEW OF SYSTEMS: General, head, ears, eyes, nose, throat, cardiovascular, respiratory, GI, , musculoskeletal, neurologic, and skin are negative except as mentioned in the HPI. PHYSICAL EXAMINATION: VITAL SIGNS: Afebrile, pulse 56, respirations 20, saturation 94% on room air. HEENT: Normocephalic and atraumatic. Sclerae white. Conjunctivae pink. Oral mucosa is moist without lesions. LUNGS: Excellent air entry. There is no significant prolonged expiratory phase. I hear crackles. There is a little bit of rhonchi there, but they clear with cough. HEART: Normal rate and regular. ABDOMEN: Soft. Nontender and nondistended. Bowel sounds are positive. MUSCULOSKELETAL: No cyanosis or clubbing. No pitting in the bilateral lower extremities. NEUROLOGIC: Grossly nonfocal. IMAGING DATA: Chest x-ray demonstrates findings consistent with volume overload including cephalization. Otherwise, there is no acute cardiopulmonary abnormality identified. LABORATORY DATA: WBC 9.0, hemoglobin 11.1, platelets 244,000. PH 7.41, pCO2 of 37, pO2 of 76, while wearing BiPAP at 15/6 with an FiO2 of 28%. Troponin negative x2, glucose ranges from 186 to 234. Creatinine 1.45, BUN 27. Basic metabolic profile is otherwise unremarkable. Liver function studies were unremarkable except for a bilirubin of 2.5. BNP 94. ASSESSMENT: 1. Acute hypoxic respiratory failure. 2. Acute bronchitis. 3. Volume overload, mild. 4. Chronic kidney disease. 5. Abnormal skin findings including things that look quite a bit like telangiectasias. 6. Morbid obesity. 7. Obstructive sleep apnea. 8. Normal pulmonary function studies in 2015 without an obstructive profile. DISCUSSION AND PLAN: We will treat him like he has an acute bronchitis. I will switch his antibiotic and his steroid over to p.o. He can continue using his nebulized DuoNeb on an as needed basis. Ultimately, once he is comfortable and feels safe being discharged from the hospital, I think it is reasonable. In the meantime, we will give him a couple doses of Lasix to get him closer to euvolemic. I am going to add an ammonia level, repeat his bilirubin, and check an INR tomorrow morning. If these things are significantly abnormal, cirrhosis workup may be considered. Pulmonary will continue to follow along for the time being. 70 minutes have been devoted to this patient in various activities. I personally reviewed all imaging studies and laboratory data noted within this document. For fifty percent of this time, I was interacting with the patient at the bedside or coordinating care with the care team. For the remainder of the time I was immediately available to the patient in the hospital unit. Job ID: [id number] [facility]
[2018-09-14] MEDS: Levothyroxine Sodium 100 MCG TAB PO SCH (06:03)
[2018-09-14] MEDS: Furosemide 40 MG/4 ML VIAL SLOW IVP SCH (06:04)
[2018-09-14] MEDS: traMADol HCl 50 MG TAB PO SCH ×4 (06:04→23:33)
[2018-09-14] MEDS: Carvedilol 6.25 MG TAB PO SCH ×2 (09:01→16:17)
[2018-09-14] MEDS: Gabapentin 300 MG CAP PO SCH ×3 (09:02→20:35)
[2018-09-14] MEDS: predniSONE 20 MG TAB PO SCH (09:02)
[2018-09-14] MEDS: Enoxaparin Sodium 30 MG/0.3 ML SYRINGE SC SCH (09:02)
[2018-09-14] MEDS: Tamsulosin HCl 0.4 MG CAP PO SCH ×2 (09:03→20:34)
[2018-09-14] MEDS: rOPINIRole HCl 0.5 MG TAB PO SCH ×4 (09:04→20:34)
[2018-09-14] MEDS: Aspirin 81 mg Enteric Coated Tablet PO SCH (09:04)
--- NOTE | 2018-09-14 11:52 | PRG ---
DATE OF SERVICE: 09/14/2018 SUBJECTIVE: The patient still has a lot of coughing and sputum production, still feels a little short of breath and has some difficulty breathing, although he thinks generally he feels better than he did yesterday. He inquires about home oxygen. OBJECTIVE: VITAL SIGNS: Temperature is 97.3, pulse 66, respirations 20, O2 saturation 93% currently on room air. He has been using his CPAP. Blood pressure is 152/72. GENERAL APPEARANCE: Morbidly obese male. He is in no distress. He is awake, alert, oriented, pleasant, and cooperative. He is able to sit up on the side of the bed, conversant, and go through physical exam without appearing to be significantly tachypneic. HEART: Regular rate and rhythm without murmurs. LUNGS: Notable for some high-pitched scattered rales mostly at the bases, slightly more on the right than the left. ABDOMEN: Obese, soft, nontender, and nondistended. EXTREMITIES: No significant edema. LABORATORY DATA: Blood sugars 154. IMPRESSION AND PLAN: 1. Acute on chronic respiratory failure with hypoxemia. The patient appears to have chronic recurrent condition consistent with a type of bronchitis with maybe some bronchospasm, in this case, it appears viral and that the patient reports that his started having symptoms the day that he came into the hospital which are similar to his own. 2. Bronchitis. The patient has recurrent bronchitis, reviewed his prior imaging. He had evidence of bronchial inflammation on the CT scan from December of this year. On talking to the patient, he admits to eating a fair amount of [place] food and spicy food. He also admits to overeating frequently and eating late at night. I suspect the patient is suffering from some reflux which is causing his recurrent bouts of the bronchitis with this particular episode being the exception and being more viral in nature. We will start the patient on a PPI. 3. Morbid obesity. We counseled the patient at length regarding the risks that he is putting himself and with the obesity issues. The patient has full understanding and insight. 4. History of coronary artery disease, stable. 5. History of diabetes mellitus. Blood sugars are well controlled. 6. Hypertension, stable, chronic. 7. Chronic kidney disease stage 3 secondary to congenital solitary kidney. It appears to be stable. 8. Hypothyroidism, stable. 9. Hyperbilirubinemia. The patient has a long history of this with normal liver function tests. His CT chest from December did not see any significant pathology within the liver or to the portion that was visualized. 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 Job ID: [id number]
--- NOTE | 2018-09-14 14:38 | EKG ---
Test Reason : Blood Pressure : / mmHG Vent. Rate : 072 BPM Atrial Rate : 072 BPM P-R Int : 234 ms QRS Dur : 098 ms QT Int : 388 ms P-R-T Axes : 055 -30 072 degrees QTc Int : 424 ms Sinus rhythm with 1st degree A-V block Left axis deviation Abnormal ECG Confirmed by HAMZAH BRUNER D.O. ([id number]), index editor NIMCO TRAVIS ([id number]) on 09/14/2018 2:37:59 PM Referred By: Confirmed By:HAMZAH BRUNER D.O.
[2018-09-14] MEDS: Insulin Regular 300 UNITS/3 ML VIAL SC PRN ×2 (17:21→20:45)
--- NOTE | 2018-09-14 19:38 | PRG ---
DATE OF SERVICE: 09/14/2018 SERVICE: Pulmonary Medicine. INTERVAL HISTORY: The patient is doing outstanding from respiratory standpoint. Denies any current chest pain, fevers, chills, nausea, or vomiting. He refused physical therapy this morning. Otherwise, there has been no interval change to his condition. His breathing is actually much improved today. PHYSICAL EXAMINATION: VITAL SIGNS: Afebrile. Pulse 91, blood pressure 159/90, respirations 14, saturation 94% on room air today. HEENT: Normocephalic and atraumatic. Sclerae white. Conjunctivae pink. Oral mucosa is moist without lesions. He is tolerating breaks from his BiPAPs wonderfully. HEART: Normal rate and regular. ABDOMEN: Soft, nontender, and nondistended. Bowel sounds are positive. MUSCULOSKELETAL: No cyanosis or clubbing. There is no pitting in bilateral lower extremities. NEUROLOGIC: Grossly nonfocal. LABORATORY DATA: Respiratory virus panel is positive for rhinovirus. ASSESSMENT: 1. Acute hypoxic respiratory failure, resolved. 2. Acute bronchitis secondary to rhinovirus, improving. 3. Volume overload, improving. 4. Chronic kidney disease. 5. Abnormal skin findings, possibly consistent with chronic liver disease. 6. Morbid obesity. 7. Obstructive sleep apnea. 8. Normal pulmonary function studies in 2015 without obstructive profile. DISCUSSION AND PLAN: We will continue our supportive care and mild diuretics through time. From my perspective in 24 hours, he will be stable for transition out of the hospital if he continues to make clinical improvement. Pulmonary will continue to follow if he remains inhouse. Job ID: [id number] [facility]
[2018-09-14] MEDS: Atorvastatin Calcium 20 MG TAB PO SCH (20:34)
[2018-09-15] MEDS: Levothyroxine Sodium 100 MCG TAB PO SCH (05:47)
[2018-09-15] MEDS: traMADol HCl 50 MG TAB PO SCH ×2 (05:48→11:14)
[2018-09-15] MEDS: Furosemide 40 MG/4 ML VIAL SLOW IVP SCH (05:48)
[2018-09-15] MEDS: Carvedilol 6.25 MG TAB PO SCH (08:57)
[2018-09-15] MEDS: Tamsulosin HCl 0.4 MG CAP PO SCH (08:57)
[2018-09-15] MEDS: rOPINIRole HCl 0.5 MG TAB PO SCH ×2 (08:57→13:46)
[2018-09-15] MEDS: Gabapentin 300 MG CAP PO SCH (08:57)
[2018-09-15] MEDS: predniSONE 20 MG TAB PO SCH (08:57)
[2018-09-15] MEDS: Aspirin 81 mg Enteric Coated Tablet PO SCH (08:57)
[2018-09-15] MEDS: Enoxaparin Sodium 30 MG/0.3 ML SYRINGE SC SCH (08:58)
[2018-09-15 12:06] VITALS: BP 125/60; TEMP 97.9
--- NOTE | 2018-09-17 10:49 | DIS ---
DATE OF ADMISSION: 09/12/2018 DATE OF DISCHARGE: 09/15/2018 DISCHARGE DIAGNOSES: 1. Acute on chronic respiratory failure. 2. Rhinovirus infection. 3. Bronchitis. 4. Morbid obesity. 5. History of coronary artery disease. 6. History of diabetes mellitus. 7. Hypertension. 8. Chronic kidney disease stage 3. 9. Hypothyroidism. 10. Hyperbilirubinemia. 11. Likely gastroesophageal reflux disorder. 12. Obstructive sleep apnea, on BiPAP. HOSPITAL COURSE: The patient is a 78-year-old morbidly obese male, body mass index of 45, who presented to the hospital via the emergency department. The patient reported increased difficulty in breathing. The patient had been experiencing some cold-type symptoms at home and increased somnolence. His oxygen saturation was noted to be as low as 67, and ultimately, required BiPAP in order to get his oxygen levels adequate. The patient was subsequently admitted to the hospital for shortness of breath and significant hypoxia, and then the patient gave history of recurrent lung issues and breathing problems and had been diagnosed with various things by various doctors over the years; most commonly, some type of asthma or bronchitis. The patient was started on some steroids, IV antibiotics with Levaquin, and given nebulizer treatments. He was seen in consultation by Pulmonology and was felt that he likely had acute bronchitis and could be discharged once his symptoms resolved. He did report subsequently that his had become ill with similar symptoms and a respiratory panel was sent which returned positive for the rhinovirus. The patient did improve over the following couple of days and was able to get up and walk the halls with O2 saturation remaining at 96%. PHYSICAL EXAMINATION: VITAL SIGNS: On the day of discharge, temperature was 97.9, pulse 66, respirations 16, O2 saturation was 94% on room air, and blood pressure 125/60. GENERAL APPEARANCE: Morbidly obese male, in no distress. Awake, alert, oriented, pleasant, and cooperative. HEART: Regular rate and rhythm without murmurs. LUNGS: Notable for very minimal scattered rales at the bases. ABDOMEN: Soft, nontender, and nondistended. Positive bowel sounds. No masses. No organomegaly. EXTREMITIES: Did have trace to 1+ pitting edema in the pretibial area, which is stable and chronic. DISPOSITION: The patient was discharged to home. His activity is as tolerated. The patient's diet is regular with low acid. I counseled the patient at length regarding the fact that he has poor eating habits including obesity, overeating, eating spicy foods, and eating late at night. Strongly suspect he is creating some reflux issues that is likely causing some aspiration given his BiPAP and some chronic bronchitis. MEDICATIONS: He will be on Pantoprazole 40 mg p.o. daily. He will continue his usual home medications to include; 1. Tramadol 50 mg 1 p.o. q.6 hours. 2. Ropinirole 0.5 mg p.o. q.i.d. 3. Tamsulosin 0.4 mg b.i.d. 4. Aldactone 50 mg every Sunday, Sunday, and Sunday. 5. Atorvastatin 20 mg at bedtime. 6. Aspirin 81 mg daily. 7. Allopurinol 300 mg every Sunday, Sunday, and Sunday. 8. Gabapentin 600 mg t.i.d. 9. Coreg 6.25 mg 1 p.o. b.i.d. 10. Levothyroxine 200 mcg p.o. daily. 11. Oxybutynin 10 mg every Sunday, Sunday, and Sunday. 12. Colace 100 mg p.o. daily p.r.n. 13. Lasix 20 mg daily. FOLLOWUP: He is to follow up with Dr. Bulmaro Stone and Dr. Shweta Mcintyre. He can return to the emergency department should he have any problems prior to that time. Job ID: [id number]
== END 2018-09-15 13:10 | disposition home or self-care (01) | DRG 189 ==
LOC: ERS 09:43 → T4-A 15:26
PROVIDERS: ADMIT Internal Medicine; ATTEND Internal Medicine
DX: J96.21 Acute and chronic respiratory failure with hypoxia (principal); Q60.0 Renal agenesis, unilateral; Z68.41 Body mass index [BMI] 40.0-44.9, adult; I25.10 Atherosclerotic heart disease of native coronary artery without angina pectoris; Z95.1 Presence of aortocoronary bypass graft; G25.81 Restless legs syndrome; I12.9 Hypertensive chronic kidney disease with stage 1 through stage 4 chronic kidney disease, or unspecified chronic kidney disease; E11.22 Type 2 diabetes mellitus with diabetic chronic kidney disease; N18.3 Chronic kidney disease, stage 3 (moderate); E66.01 Morbid (severe) obesity due to excess calories; G47.33 Obstructive sleep apnea (adult) (pediatric); J20.6 Acute bronchitis due to rhinovirus; E03.9 Hypothyroidism, unspecified; E11.40 Type 2 diabetes mellitus with diabetic neuropathy, unspecified; I78.1 Nevus, non-neoplastic
CPT/HCPCS: 36415; 36416; 71045; 80048; 80053; 82805; 83880; 84484; 85025; 85379; 87633; 87798; 93005; 94640; 94660; 96365; 96367; 96375; J1650; J1815; J1940; J1956; J2920; J2930; J7506; J7620

== ENCOUNTER 2018-10-21 09:38 | Outpatient (CLI) | payer MEDICARE ==
--- NOTE | 2018-10-21 10:18 | RAD ---
CHEST TWO VIEWS: History: Dyspnea. Comparison: 09-12-18 FINDINGS: Post underlying sternotomy. Mild bilateral pleural thickening with stable increased markings bilatera lly. No confluent pneumonia, overt edema or pleural effusion. IMPRESSION: Stable chest. No acute process. POS: [facility]
== END 2018-10-21 09:39 | disposition home or self-care (01) ==
LOC: RAD 09:38
PROVIDERS: ATTEND Internal Medicine Critical Care Medicine
DX: R06.00 Dyspnea, unspecified (principal)
CPT/HCPCS: 71046

== ENCOUNTER 2019-02-03 10:59 | Day surgery (SDC) | payer MEDICARE ==
[2019-01-31 11:50] VITALS: BMI 44.3
[2019-02-03] MEDS ORDERED: ePHEDrine 50 MG/ML VIAL ONE (16:41)
[2019-02-03] MEDS ORDERED: Lidocaine 1% PF 5 ML VIAL ONE (16:41)
[2019-02-03] MEDS ORDERED: PHENYLEPHRINE-NS 100 MCG/ML 10 ML SYRINGE ONE (16:41)
[2019-02-03] MEDS ORDERED: PROPOFOL 200 MG/20 ML VIAL ONE (16:41)
--- NOTE | 2019-02-03 21:10 | OP ---
DATE OF PROCEDURE: 02/03/2019 PROCEDURE PERFORMED: Colonoscopy with polypectomy. INDICATION FOR PROCEDURE: Personal history of tubulovillous adenomas of the colon, family history of colon cancer (brother diagnosed in his 50s). DESCRIPTION OF PROCEDURE: After the risks and benefits of the procedure were explained to the patient including risks of bleeding, infection, perforation, reactions to anesthesia, aspiration, and/or pain, informed consent was obtained. The patient was then taken to the endoscopy suite, where deep sedation was administered via propofol and anesthesia support. Once adequate sedation was achieved, a digital rectal exam was performed followed by introduction of the standard colonoscope into the rectum and advanced to the cecum with only mild difficulty secondary to poor prep. The quality of the prep was initially poor, but with aggressive irrigation and suctioning, he was made adequate for the evaluation of large mucosal lesions, but inadequate for the evaluation of lesions less than a cm in size. The patient tolerated the procedure well with no immediate perioperative complications. Upon completion of the procedure, all equipment was removed from the patient and the patient was transferred to Day Stay in satisfactory condition. FINDINGS: Digital rectal exam, normal. Colon findings, normal-appearing mucosa was seen in the cecum and at the appendiceal orifice. However, a large lipomatous appearing ileocecal valve was seen with inability to intubate the terminal ileum. Biopsies were taken of the lipomatous portion of the ileocecal valve and placed in a specimen jar for evaluation. The quality of the prep was initially poor throughout the entire colon, but with aggressive irrigation and suctioning. He was converted into an adequate prep for the evaluation of fine mucosal lesions greater than a cm in size, but inadequate for the evaluation of fine mucosal lesions less than 1 cm in size. Of the mucosa seen (approximately 70% to 80%), normal-appearing mucosa was seen in the ascending colon. Three polyps measuring 3 to 7 mm in size were seen in the transverse colon and completely removed with snare cautery polypectomy. They were retrieved and placed in a specimen jar for evaluation. An additional polyp was also seen in the transverse colon measuring approximately 6-7 mm in size, but with the inadequate prep was lost to evaluation. Normal-appearing mucosa was seen in the descending colon and sigmoid colon. However, 2 polyps measuring 3 to 7 mm in size were seen in the rectum and completely removed with snare cautery polypectomy. They were retrieved and placed in a specimen jar for evaluation. Dilated blood vessels were also seen in the rectum consistent with rectal varices. Small internal hemorrhoids were seen on rectal retroflexion. IMPRESSION: 1. Inadequate colonic preparation for the evaluation of fine mucosal lesions less than 1 cm in size. 2. Lipomatous ileocecal valve, status post biopsies. 3. Three transverse colon polyps measuring 3 to 6 mm in size, status post snare cautery polypectomy. 4. Multiple diverticula were seen in the distal descending and sigmoid colons with small and large mouth diverticula seen consistent with moderate left-sided diverticulosis. 5. Two rectal polyps measuring 3 to 6 mm in size, status post snare cautery polypectomy. 6. Small internal hemorrhoids. RECOMMENDATIONS: 1. We will follow up on the biopsy/polypectomy results, but would repeat the colonoscopy in 6-12 months given the poor colonic prep seen on evaluation today. 2. We would recommend a higher fiber diet given the presence of hemorrhoids and diverticulosis. 3. Follow up in the GI Clinic within 4 weeks for further evaluation of hyperbilirubinemia and follow up on polypectomy today. Job ID: [id number]
== END 2019-02-03 16:00 | disposition home or self-care (01) ==
LOC: SDC 10:59
PROVIDERS: ATTEND Internal Medicine
PROC: 0DBH8ZX Excision of Cecum, Via Natural or Artificial Opening Endoscopic, Diagnostic (ICD-10-PCS; principal; 2019-02-03)
PROC: 0DBP8ZX Excision of Rectum, Via Natural or Artificial Opening Endoscopic, Diagnostic (ICD-10-PCS; 2019-02-03)
PROC: 0DBL8ZX Excision of Transverse Colon, Via Natural or Artificial Opening Endoscopic, Diagnostic (ICD-10-PCS; 2019-02-03)
DX: Z12.11 Encounter for screening for malignant neoplasm of colon (principal); D12.8 Benign neoplasm of rectum; K63.5 Polyp of colon; D17.5 Benign lipomatous neoplasm of intra-abdominal organs; K57.30 Diverticulosis of large intestine without perforation or abscess without bleeding; K64.8 Other hemorrhoids; E80.6 Other disorders of bilirubin metabolism; G47.33 Obstructive sleep apnea (adult) (pediatric); I10 Essential (primary) hypertension; E78.5 Hyperlipidemia, unspecified; E03.9 Hypothyroidism, unspecified; N40.1 Benign prostatic hyperplasia with lower urinary tract symptoms; R35.0 Frequency of micturition; M10.9 Gout, unspecified; I25.10 Atherosclerotic heart disease of native coronary artery without angina pectoris; E78.00 Pure hypercholesterolemia, unspecified; E66.9 Obesity, unspecified; Z68.42 Body mass index [BMI] 45.0-49.9, adult; Z87.19 Personal history of other diseases of the digestive system; Z80.0 Family history of malignant neoplasm of digestive organs; Z79.82 Long term (current) use of aspirin; Z79.899 Other long term (current) drug therapy; Z91.018 Allergy to other foods
CPT/HCPCS: 88305; J2001; J2704; J3490

== ENCOUNTER 2019-02-06 11:03 | Observation (INO) | payer MEDICARE ==
[2019-02-06 11:31] LABS: #Eosinphils 0.3 thou/uL (0.0-0.7); #Lymphocytes 1.2 thou/uL (1.20-3.40); #Monocytes 0.8 thou/uL (0.11-0.59); #Neutrophils 7.2 thou/uL (1.40-6.50); %Basophils 0.4 % (0.0-1.0); %Eosinophils 3.2 % (0.0-10.0); %Lymphocytes 12.7 % (21.0-51.0); %Neutrophils 75.7 % (42.0-75.0); Hemoglobin 11.3 g/dL (14.0-18.0); Mean Corpuscular HGB CONC 32.5 g/dL (32.0-36.0); Mean Corpuscular Hemoglobin 28.7 pg (27.0-31.0); Mean Corpuscular Volume 88.2 fL (78.0-98.0); Mean Platelet Volume 6.7 fL (7.4-10.4); Platelet Count 232 thou/uL (130-400); RBC Distribution Width 18.4 % (11.5-14.5); Red Blood Cell (RBC) Count 3.94 mill/uL (4.70-6.10); White Blood Cell (WBC) Count 9.5 thou/uL (4.8-10.8)
--- NOTE | 2019-02-06 11:49 | RAD ---
XR Chest 1 View Portable HISTORY: Dyspnea COMPARISON: 10/21/2018 FINDINGS: The heart size is normal. The lungs are well expanded without focal areas of consolidation, pneumothorax or pleural effusions. Changes of median sternotomy are again seen. IMPRESSION: No radiographic evidence of acute cardiopulmonary process.
[2019-02-06 12:00] LABS: ALT (SGPT) 11 U/L (8-55); AST (SGOT) 11 U/L (5-34); Albumin 3.7 g/dL (3.4-4.8); Alkaline Phosphatase 78 U/L (40-150); Anion Gap 12 mmol/L (10-20); BUN (Urea Nitrogen) 30 mg/dL (8.4-25.7); Bilirubin, Total 1.3 mg/dL (0.2-1.2); CK (CPK) 33 U/L (30-200); Calc. Creatinine Clearance 0 mL/min (70-130); Calcium 8.7 mg/dL (7.8-10.44); Carbon Dioxide 19 mmol/L (23-31); Chloride 109 mmol/L (98-107); Estimated GFR-MDRD 51; Globulin 2.3 g/dL (2.4-3.5); Glucose 148 mg/dL (83-110); Potassium 4.3 mmol/L (3.5-5.1); Sodium 136 mmol/L (136-145)
[2019-02-06 12:32] LABS: Bilirubin Negative (Negative); Blood, Urine Negative (Negative); Clarity CLEAR (Clear); Glucose, Urine (Dipstick) Negative (Negative); Leukocyte Negative (Negative); Nitrite Negative (Negative); Protein, Urine (Dipstick) Negative (Neg-Trace); Urobilinogen 0.2 mg/dL (0.2-1.0)
[2019-02-06] MEDS ORDERED: Lorazepam 2 MG/ML VIAL ONE (12:56)
[2019-02-06] MEDS ORDERED: Methocarbamol 1 GM in Sodium Chloride 0.9% 250 ML 250 ML IVPB SCH ×2 (14:15→15:00)
[2019-02-06] MEDS ORDERED: Ketorolac Tromethamine 60 MG/2 ML VIAL ONE (14:57)
[2019-02-06] MEDS ORDERED: traMADol HCl 50 MG TAB ONE (14:57)
[2019-02-06] MEDS ORDERED: hydrALAZINE 20 MG/ML VIAL ONE (15:45)
--- NOTE | 2019-02-06 17:04 | CT ---
CT BRAIN NONCONTRAST: DATE: 02/06/2019 HISTORY: 78-year-old male with altered mental status, generalized weakness, and tremors FINDINGS: There is no evidence of acute intra-axial or extra-axial hemorrhage. There is no midline shift or any other mass effect. There is no extra-axial fluid collection. There is no evidence of obstructive hydrocephalus. Calvarium is intact. IMPRESSION: No acute intracranial findings.
[2019-02-06 17:14] LABS: Amphetamine Not Detected (NotDetected); Barbiturates Screen Not Detected (NotDetected); Benzodiazepine Screen Detected (NotDetected); Cocaine Metabolite Screen Not Detected (NotDetected); Medtox Control Line Valid? VALID (VALID); Medtox Reader # READER 1; Methadone Not Detected (NotDetected); Methamphetamine Not Detected (NotDetected); Opiate Screen Not Detected (NotDetected); Oxycodone Screen Not Detected (NotDetected); Phencyclidine (PCP) Not Detected (NotDetected); THC/Cannabinoid Screen Not Detected (NotDetected); Tricyclic Screen Not Detected (NotDetected)
[2019-02-06 17:17] LABS: Acetaminophen Less than 6.0 mcg/mL (10.0-30.0); Alcohol Less than 10 mg/dL (Less than 10); Salicylate Less than 8.0 mg/dL (15.0-30.0)
[2019-02-06] MEDS ORDERED: Acetaminophen 325 MG TAB PO PRN (18:03)
[2019-02-06] MEDS ORDERED: Acetaminophen 650 MG Suppository PR PRN (18:03)
[2019-02-06 19:29] VITALS: BMI 48.2
[2019-02-06] MEDS: Sodium Chloride 0.9% 1,000 ML IV SCH (21:12)
[2019-02-06] MEDS: Famotidine 20 MG TAB PO SCH (21:13)
[2019-02-06] MEDS ORDERED: Docusate 100 MG CAP PO PRN (21:57)
[2019-02-06] MEDS ORDERED: rOPINIRole HCl 0.5 MG TAB PO SCH ×2 (22:00→23:59)
[2019-02-06] MEDS ORDERED: Pregabalin 25 MG CAP PO SCH (22:30)
[2019-02-06] MEDS ORDERED: Lorazepam 0.5 MG TAB PO PRN (22:58)
[2019-02-06] MEDS ORDERED: rOPINIRole HCl 1 MG TAB PO SCH (23:00)
[2019-02-06] MEDS ORDERED: HumaLOG 300 UNITS/3 ML VIAL SC PRN ×2 (23:22)
[2019-02-06] MEDS ORDERED: Dextrose 50% Abboject 50 ML SYRINGE SLOW IVP PRN (23:22)
[2019-02-06] MEDS ORDERED: Dextrose 5% in Water 1,000 ML IV PRN (23:22)
--- NOTE | 2019-02-06 23:56 | HP ---
CHIEF COMPLAINT: Uncontrollable shaking. HISTORY OF PRESENT ILLNESS: Mr. Goldstein is a 78-year-old man, who presents with complaints of uncontrollable shaking in his body, particularly his legs since Sunday. The patient states he recently underwent a colonoscopy by Dr. Azul. He had been advised to stop taking tramadol, which he has taken regularly for the last 4 years. The patient stopped it abruptly and feels that this has caused his current symptoms. He states he suffers from restless legs syndrome, which is managed with ropinirole. However, since stopping tramadol, he has noticed worsening shaking in his legs and body. He denies having any speech disturbances. No blurred vision. No headaches or dizziness. He does feel generally short of breath and states this is due to chronic bronchitis and sleep apnea. The patient feels generally unwell due to inability to sleep since shaking has started. He has spent restless nights and has been unable to have any relief. Denies any loss of consciousness or actual seizures. Reports having an episode like this several years ago, but does not recall how long it lasted or what was done for it. Patient states he was recently told he had an elevated bilirubin and told he possibly had Gilbert's disease. States his level has been improving. The patient given Ativan and Robaxin in the ED. REVIEW OF SYSTEMS: He denies any fevers, chills, or sweats. No neck pain or stiffness. No chest pain or palpitations. He has chronic shortness of breath. Denies having any nausea or vomiting. No abdominal pain or cramping. No changes with his bowels. No urinary symptoms. He has not noted any extremity weakness or numbness, but does report feeling general malaise and weakness due to fatigue. PAST MEDICAL HISTORY: 1. Type 2 diabetes mellitus. 2. Sleep apnea. 3. Born with one kidney. 4. CHF. 5. Hypothyroidism. 6. Prostatitis. 7. Iron deficiency anemia. 8. Hyperlipidemia. 9. Hypertension. 10. Gout. 11. Obesity. 12. Chronic bronchitis. 13. Restless legs syndrome. PAST SURGICAL HISTORY: 1. CABG x2 in October 2017. 2. Colonoscopy. 3. Vasectomy. 4. CABG in 2017. 5. Right knee replacement. 6. Cataract surgery. SOCIAL HISTORY: The patient lives with his . Denies any alcohol use or illicit drug use. He is a nonsmoker. ALLERGIES: NO KNOWN DRUG ALLERGIES. CURRENT MEDICATIONS: 1. Ropinirole. 2. Tamsulosin. 3. Allopurinol. 4. Lasix. 5. Atorvastatin. 6. Oxybutynin. 7. Levothyroxine. 8. Spironolactone. 9. Aspirin. 10. Carvedilol. 11. Colace. 12. Vitamin B12. 13. Lyrica. PHYSICAL EXAMINATION: GENERAL: The patient appears obese, well-developed and in no acute distress though has episodes of generalized body jerking, more prominent in the legs. It lasts seconds. VITAL SIGNS: Temperature 97.9, pulse 77, respirations 18, blood pressure 166/89, O2 saturation 100% on room air. HEENT: Normocephalic and atraumatic. Pupils are equal, round, and reactive to light. Extraocular movements intact. No nystagmus. Sclerae without icterus. Oropharynx is clear. NECK: Supple without lymphadenopathy. No nuchal rigidity or stiffness. Facial movements normal. Sensation intact. CARDIAC: Regular rate and rhythm. LUNGS: Clear to auscultation bilaterally without any wheezes, rales, or rhonchi. ABDOMEN: Soft, obese, nontender, nondistended. Normoactive bowel sounds present. No guarding or rigidity. No renal angle tenderness. EXTREMITIES: No lower leg swelling or calf tenderness. NEUROLOGIC: Alert and oriented x3. No focal neuro deficits. Power 5/5 with sensation intact in all limbs. Full plantar reflexes present. Speech normal. No tongue deviation. SKIN: Without rash or jaundice. LABORATORY DATA: White blood count 9.5, hemoglobin 11.3, hematocrit 34.8, platelets 232. Sodium 136, potassium 4.3, BUN 30, creatinine 1.35, GFR 51, glucose 148, lactic acid 1.4, calcium 8.7, total bilirubin 1.3, AST 11, ALT 11, alkaline phosphatase 78. CK 33, troponin negative. BNP 36.9, total protein 6, albumin 3.7. Urinalysis negative. Toxicology was positive for benzodiazepines, otherwise negative. Plasma alcohol less than 10. IMAGING DATA: 1. Chest x-ray. No radiographic evidence of acute cardiopulmonary process. 2. CT brain, no acute intracranial abnormalities. IMPRESSION AND PLAN: Mr. Goldstein is a 78-year-old man, admitted for management of the followin. Uncontrolled muscle spasms more prominent in the legs. It seems to have started once he discontinued tramadol abruptly, which he was taking regularly for the last 4 years. We will give Ativan p.r.n. and monitor overnight. Investigations are unremarkable thus far. We will obtain a magnesium level as well as ammonia level and TSH. 2. Chronic kidney disease. The patient with known chronic kidney disease. GFR seems stable, but he has had reduced fluid intake for the last couple of days since his symptoms started. We will provide gentle hydration. 3. Hypertension. We will resume home medications and monitor blood pressure. 4. Type 2 diabetes. We will resume home medications and monitor glucose. We will initiate insulin sliding scale. 5. Hypothyroidism. We will resume home medications. As mentioned above, will check TSH. 6. Gastrointestinal prophylaxis. 7. Deep venous thrombosis prophylaxis. 8. Full code status. His surrogate decision maker would be his , Becka Goldstein. The patient's case was discussed with Dr. Torres, who agrees upon care as described above. Job ID: [id number]
[2019-02-07 04:52] LABS: #Eosinphils 0.3 thou/uL (0.0-0.7); #Lymphocytes 1.2 thou/uL (1.20-3.40); #Monocytes 0.5 thou/uL (0.11-0.59); #Neutrophils 5.2 thou/uL (1.40-6.50); %Basophils 0.6 % (0.0-1.0); %Eosinophils 3.6 % (0.0-10.0); %Lymphocytes 16.6 % (21.0-51.0); %Monocytes 6.9 % (0.0-10.0); %Neutrophils 72.4 % (42.0-75.0); Hemoglobin 10.2 g/dL (14.0-18.0); Mean Corpuscular Hemoglobin 29.3 pg (27.0-31.0); Mean Corpuscular Volume 88.9 fL (78.0-98.0); Mean Platelet Volume 6.6 fL (7.4-10.4); Platelet Count 211 thou/uL (130-400); RBC Distribution Width 18.2 % (11.5-14.5); Red Blood Cell (RBC) Count 3.48 mill/uL (4.70-6.10); White Blood Cell (WBC) Count 7.2 thou/uL (4.8-10.8)
[2019-02-07 05:11] LABS: Anion Gap 12 mmol/L (10-20); BUN (Urea Nitrogen) 25 mg/dL (8.4-25.7); Calc. Creatinine Clearance 114 mL/min (70-130); Calcium 8.3 mg/dL (7.8-10.44); Carbon Dioxide 19 mmol/L (23-31); Chloride 111 mmol/L (98-107); Estimated GFR-MDRD 62; Glucose 107 mg/dL (83-110); Potassium 4.2 mmol/L (3.5-5.1); Sodium 138 mmol/L (136-145)
[2019-02-07] MEDS ORDERED: Levothyroxine Sodium 100 MCG TAB PO SCH (06:00)
[2019-02-07] MEDS ORDERED: Carvedilol 6.25 MG TAB PO SCH (08:00)
[2019-02-07] MEDS: Famotidine 20 MG TAB PO SCH (08:39)
[2019-02-07] MEDS ORDERED: Oxybutynin ER 5 MG TAB PO SCH (09:00)
[2019-02-07] MEDS ORDERED: Allopurinol 300 MG TAB PO SCH (09:00)
[2019-02-07] MEDS ORDERED: Tamsulosin HCl 0.4 MG CAP PO SCH (09:00)
[2019-02-07] MEDS ORDERED: Furosemide 20 MG TAB PO SCH (09:00)
[2019-02-07] MEDS ORDERED: Spironolactone 25 MG TAB PO SCH (09:00)
[2019-02-07] MEDS ORDERED: Aspirin 81 mg Enteric Coated Tablet PO SCH (09:00)
[2019-02-07] MEDS: Pregabalin 25 MG CAP PO SCH ×2 (09:48→16:39)
[2019-02-07] MEDS ORDERED: traMADol HCl 50 MG TAB PO PRN (11:42)
[2019-02-07 12:52] VITALS: TEMP 98.2
[2019-02-07] MEDS: Sodium Chloride 0.9% 1,000 ML IV SCH (13:04)
[2019-02-07] MEDS ORDERED: rOPINIRole HCl 0.5 MG TAB PO SCH ×2 (14:00→21:00)
[2019-02-07] MEDS ORDERED: Atorvastatin Calcium 20 MG TAB PO SCH (21:00)
[2019-02-07] MEDS ORDERED: rOPINIRole HCl 1 MG TAB PO SCH (21:00)
[2019-02-08] MEDS ORDERED: Magnesium Oxide 400 MG TAB PO SCH (09:00)
[2019-02-08 09:42] VITALS: BP 120/56
== END 2019-02-07 16:58 | disposition home or self-care (01) ==
LOC: ERS 11:03 → 2NO 18:57 → INTOOBSV 18:57
PROVIDERS: ADMIT Internal Medicine; ATTEND Internal Medicine
DX: M62.838 Other muscle spasm (principal); I11.0 Hypertensive heart disease with heart failure; I50.9 Heart failure, unspecified; E03.9 Hypothyroidism, unspecified; E11.9 Type 2 diabetes mellitus without complications; E78.5 Hyperlipidemia, unspecified; J42 Unspecified chronic bronchitis; N41.9 Inflammatory disease of prostate, unspecified; D50.9 Iron deficiency anemia, unspecified; M10.9 Gout, unspecified; G25.81 Restless legs syndrome; E66.9 Obesity, unspecified; Z68.42 Body mass index [BMI] 45.0-49.9, adult; Z79.82 Long term (current) use of aspirin; Z79.899 Other long term (current) drug therapy; Z95.1 Presence of aortocoronary bypass graft; Z96.651 Presence of right artificial knee joint
CPT/HCPCS: 70450; 71045; 80048; 80306; 80307; 81003; 82140; 82550; 82962; 83605; 83735; 83880; 84484; 85025; 87086; 93005; 96365; 96366; 96375; 97139 ×3; 99285; G0378 ×2; 36415; 36416; 80053; 84443; J0360; J1885; J2060; J2800; J7050

== ENCOUNTER 2019-06-13 13:06 | Outpatient (CLI) | payer MEDICARE ==
--- NOTE | 2019-06-19 19:47 | ULT ---
LOWER EXTREMITY ARTERIAL EVALUATION USING DOPPLER WAVEFORM ANALYSIS AND SEGMENTAL LIMB PRESSURES 06/13/19 HISTORY: Pain in both feet. Examination of the right leg reveals fairly well preserved Doppler waveforms at all levels with a nor mal dorsalis pedis waveform and an ankle-arm index of 0.94. Left lower extremity similarly demonstrates well preserved Doppler waveforms with fairly normal wavef orms in the posterior tibial and dorsalis pedis with an ankle-arm index of 0.38. Toe-brachial index i s normal bilaterally. ASSESSMENT: This study is a normal resting arterial study and would not be consistent with rest pain.
== END 2019-06-13 13:07 | disposition home or self-care (01) ==
LOC: ULT 13:06
PROVIDERS: ATTEND Internal Medicine
DX: R09.89 Other specified symptoms and signs involving the circulatory and respiratory systems (principal)
CPT/HCPCS: 93922

== ENCOUNTER 2019-11-10 15:04 | Outpatient (CLI) | payer MEDICARE ==
--- NOTE | 2019-11-10 16:00 | RAD ---
EXAM: XR Lumbar Spine 2 Or 3 View PROVIDED CLINICAL HISTORY: Lumbar back pain. Patient states fell one week ago. COMPARISON: None FINDINGS: There are 5 nonrib-bearing lumbar-type vertebral bodies. Scattered osteophytes are seen in the lumbar spine. There is grade 1 anterolisthesis of L4 on L5 which measures approximately 7 to 8 mm. Mild narrowing of the L4-5 and L5-S1 intervertebral disc spaces is noted. Facet degenerative changes are s een in the lower lumbar spine. No fracture is identified. Vascular calcifications are seen in the abdominal aorta and involving the iliac arteries IMPRESSION: 1. Degenerative changes lumbar spine with grade 1 anterolisthesis of L4 on L5.
--- NOTE | 2019-11-10 16:13 | RAD ---
EXAM: XR Sacroiliac Joints >=3 View PROVIDED CLINICAL HISTORY: Sacroiliitis. Patient fell one week ago. Patient continues to have left-sided pain. COMPARISON: None FINDINGS: There is mild bilateral sacroiliac joint osteoarthritis. However, the joint spaces are symmetric in a ppearance bilaterally. No fracture is seen in the visualized portion of the sacrum. Mild degenerative changes are seen at the lumbosacral junction. IMPRESSION: Mild osteoarthritis each sacroiliac joint without acute osseous abnormality appreciated.
== END 2019-11-10 15:05 | disposition home or self-care (01) ==
LOC: BICRAD 15:04
PROVIDERS: ATTEND Internal Medicine
DX: M46.1 Sacroiliitis, not elsewhere classified (principal); M54.5 Low back pain; M47.818 Spondylosis without myelopathy or radiculopathy, sacral and sacrococcygeal region; M47.816 Spondylosis without myelopathy or radiculopathy, lumbar region; M43.16 Spondylolisthesis, lumbar region
CPT/HCPCS: 72100; 72202

== ENCOUNTER 2020-07-26 08:28 | Emergency (ER) | payer MEDICARE ==
[2020-07-26 09:22] LABS: #Eosinphils 0.2 thou/uL (0.0-0.7); #Lymphocytes 1.1 thou/uL (1.20-3.40); #Monocytes 0.6 thou/uL (0.11-0.59); #Neutrophils 5.8 thou/uL (1.40-6.50); %Basophils 0.5 % (0.0-1.0); %Eosinophils 2.7 % (0.0-10.0); %Lymphocytes 14.3 % (21.0-51.0); %Monocytes 7.1 % (0.0-10.0); %Neutrophils 75.4 % (42.0-75.0); Hemoglobin 9.7 g/dL (14.0-18.0); Mean Corpuscular HGB CONC 32.8 g/dL (32.0-36.0); Mean Corpuscular Hemoglobin 30.1 pg (27.0-31.0); Mean Corpuscular Volume 91.7 fL (78.0-98.0); Mean Platelet Volume 6.3 fL (7.4-10.4); Platelet Count 242 thou/uL (130-400); RBC Distribution Width 19.2 % (11.5-14.5); Red Blood Cell (RBC) Count 3.22 mill/uL (4.70-6.10); White Blood Cell (WBC) Count 7.7 thou/uL (4.8-10.8)
--- NOTE | 2020-07-26 09:29 | RAD ---
EXAM: Portable chest PROVIDED CLINICAL HISTORY: Shortness of breath COMPARISON: 02/06/2019 FINDINGS: Cardiac and mediastinal silhouette is unchanged in appearance. Median sternotomy changes and atherosc lerosis are redemonstrated. Evaluation is limited by patient body habitus. No focal consolidation, pleural fluid or pneumothorax evident. IMPRESSION: No evidence for an acute cardiopulmonary process.
[2020-07-26 09:51] LABS: ALT (SGPT) 13 U/L (8-55); AST (SGOT) 13 U/L (5-34); Albumin 3.4 g/dL (3.4-4.8); Alkaline Phosphatase 96 U/L (40-110); Anion Gap 13 mmol/L (10-20); BUN (Urea Nitrogen) 41 mg/dL (8.4-25.7); Bilirubin, Total 1.3 mg/dL (0.2-1.2); Calc. Creatinine Clearance 0 mL/min (70-130); Carbon Dioxide 25 mmol/L (23-31); Chloride 106 mmol/L (98-107); Estimated GFR-MDRD 45; Globulin 2.7 g/dL (2.4-3.5); Glucose 151 mg/dL (83-110); Potassium 4.6 mmol/L (3.5-5.1); Protein, Total 6.1 g/dL (5.8-8.1); Sodium 139 mmol/L (136-145)
[2020-07-26] MEDS ORDERED: Morphine 4 MG/ML VIAL ONE (10:48)
[2020-07-26] MEDS ORDERED: Lorazepam 2 MG/ML VIAL ONE (10:48)
[2020-07-26] MEDS ORDERED: Ondansetron PF 4 MG/2 ML Vial ONE (11:11)
[2020-07-26] MEDS ORDERED: rOPINIRole HCl 0.5 MG TAB PO SCH (12:45)
== END 2020-07-26 13:06 | disposition home or self-care (01) ==
LOC: ERS 08:28
DX: G25.81 Restless legs syndrome (principal); E11.9 Type 2 diabetes mellitus without complications; G47.30 Sleep apnea, unspecified; I11.0 Hypertensive heart disease with heart failure; I50.9 Heart failure, unspecified; E03.9 Hypothyroidism, unspecified; E78.5 Hyperlipidemia, unspecified; E78.00 Pure hypercholesterolemia, unspecified; E66.9 Obesity, unspecified; M10.9 Gout, unspecified; Z79.899 Other long term (current) drug therapy; Z79.82 Long term (current) use of aspirin
CPT/HCPCS: 36415; 71045; 80053; 83880; 84484; 85025; 93005; 94760; 96374; 96375; J2060; J2270; J2405

== ENCOUNTER 2020-08-05 12:50 | Outpatient (CLI) | payer MEDICARE ==
--- NOTE | 2020-08-05 16:32 | MRI ---
MRI BRAIN WITHOUT CONTRAST: HISTORY: Occasional tremors, dizziness CORRELATION: CT scan from 02/06/2019. FINDINGS: No restricted diffusion is seen. The ventricular size is appropriate and the basilar cisterns are pat ent. Age-appropriate volume loss is seen. No evidence of acute infarct, hemorrhage, midline shift or abnormal extra-axial fluid collections is seen. There is mild mucosal disease in the paranasal sin uses. A partially empty sella is seen. There is fluid in the mastoid air cells. IMPRESSION: No evidence of acute intracranial process.
== END 2020-08-05 12:51 | disposition home or self-care (01) ==
LOC: MRI 12:50 → TBSIIMAG 12:51
PROVIDERS: ATTEND Internal Medicine
DX: R42 Dizziness and giddiness (principal); R25.1 Tremor, unspecified
CPT/HCPCS: 70551

== ENCOUNTER 2020-10-29 09:39 | Outpatient (CLI) | payer MEDICARE ==
--- NOTE | 2020-10-29 11:00 | ULT ---
ULTRASOUND GALLBLADDER RIGHT UPPER QUADRANT: HISTORY: Pain. COMPARISON: None. FINDINGS: Real-time, ramos scale, and color evaluation of the right upper quadrant of the abdomen was performed. Visualized portion of the pancreas is unremarkable. Mild increased hepatic echotexture. No hepati c mass. The liver measures 20 cm in length. No intrahepatic or extrahepatic biliary dilatation. Th e portal vein is patent with antegrade flow. No cholelithiasis or cholecystitis. No pericholecystic inflammation. Gallbladder wall thickness is normal at 2 mm. Common bile duct measures 4 mm, normal. The right kidney is without mass, hydronephrosis, or abnormal calcifications. Interpolar cyst measur ing 3.8 cm. Sonographic Simmons's sign is negative. IMPRESSION: 1. No cholelithiasis or cholecystitis. 2. Interpolar renal cysts, simple, benign finding. 3. No evidence for obstructive uropathy. 4. Hepatomegaly and hepatic steatosis. POS: [facility]
== END 2020-10-29 09:40 | disposition home or self-care (01) ==
LOC: ULT 09:39
PROVIDERS: ATTEND Internal Medicine
DX: E80.6 Other disorders of bilirubin metabolism (principal); N28.1 Cyst of kidney, acquired; R16.0 Hepatomegaly, not elsewhere classified; K76.0 Fatty (change of) liver, not elsewhere classified
CPT/HCPCS: 76705

== ENCOUNTER 2021-02-03 15:29 | Outpatient (CLI) | payer MEDICARE ==
[2021-02-04 01:49] LABS: SARS-CoV-2 PCR by NAA Not Detected (NotDetected)
== END 2021-02-03 15:30 | disposition home or self-care (01) ==
LOC: LABBT 15:29
PROVIDERS: ATTEND Internal Medicine
DX: Z01.812 Encounter for preprocedural laboratory examination (principal); D12.6 Benign neoplasm of colon, unspecified; D64.9 Anemia, unspecified; Z20.822 Contact with and (suspected) exposure to COVID-19
CPT/HCPCS: U0003; U0005; 87635

== ENCOUNTER 2021-02-08 07:08 | Day surgery (SDC) | payer MEDICARE ==
[2021-02-07 10:10] VITALS: BMI 50.1
[2021-02-08] MEDS ORDERED: Albuterol Sulfate 1.25 MG/3 ML NEB ONE (08:20)
[2021-02-08] MEDS ORDERED: Lidocaine 1% PF 5 ML VIAL ONE (09:19)
[2021-02-08] MEDS ORDERED: PROPOFOL 200 MG/20 ML VIAL ONE (09:19)
[2021-02-08] MEDS ORDERED: Meperidine HCl/PF 25 MG/ML VIAL ONE (10:24)
== END 2021-02-08 12:00 | disposition home or self-care (01) ==
LOC: SDC 07:08
PROVIDERS: ATTEND Internal Medicine
PROC: 0DBH8ZZ Excision of Cecum, Via Natural or Artificial Opening Endoscopic (ICD-10-PCS; principal; 2021-02-08)
PROC: 0DBL8ZZ Excision of Transverse Colon, Via Natural or Artificial Opening Endoscopic (ICD-10-PCS; 2021-02-08)
PROC: 0DBP8ZZ Excision of Rectum, Via Natural or Artificial Opening Endoscopic (ICD-10-PCS; 2021-02-08)
PROC: 0DB58ZX Excision of Esophagus, Via Natural or Artificial Opening Endoscopic, Diagnostic (ICD-10-PCS; 2021-02-08)
DX: Z12.11 Encounter for screening for malignant neoplasm of colon (principal); D12.0 Benign neoplasm of cecum; D12.3 Benign neoplasm of transverse colon; K64.4 Residual hemorrhoidal skin tags; K64.8 Other hemorrhoids; D64.9 Anemia, unspecified; G47.33 Obstructive sleep apnea (adult) (pediatric); I10 Essential (primary) hypertension; E03.9 Hypothyroidism, unspecified; E78.5 Hyperlipidemia, unspecified; M06.9 Rheumatoid arthritis, unspecified; J45.909 Unspecified asthma, uncomplicated; N40.1 Benign prostatic hyperplasia with lower urinary tract symptoms; R35.0 Frequency of micturition; Z86.010 Personal history of colon polyps; Z80.0 Family history of malignant neoplasm of digestive organs; Z79.82 Long term (current) use of aspirin; Z79.84 Long term (current) use of oral hypoglycemic drugs; Z79.899 Other long term (current) drug therapy
CPT/HCPCS: 88305; J2175; J2704

== ENCOUNTER 2021-02-13 19:30 | Outpatient (CLI) | payer MEDICARE | END 2021-02-13 19:31 | disposition home or self-care (01) | LOC: SLEEPLAB 19:30 | PROVIDERS: ATTEND Internal Medicine | DX: G47.33 Obstructive sleep apnea (adult) (pediatric) (principal); G25.81 Restless legs syndrome; K21.9 Gastro-esophageal reflux disease without esophagitis; E66.9 Obesity, unspecified; F32.9 Major depressive disorder, single episode, unspecified; I10 Essential (primary) hypertension; I25.10 Atherosclerotic heart disease of native coronary artery without angina pectoris; G47.00 Insomnia, unspecified; E11.9 Type 2 diabetes mellitus without complications; G47.10 Hypersomnia, unspecified; Z68.42 Body mass index [BMI] 45.0-49.9, adult | CPT/HCPCS: 95811 ==

== ENCOUNTER 2021-07-20 13:42 | Outpatient (CLI) | payer MEDICARE | END 2021-07-20 13:43 | disposition home or self-care (01) | LOC: DTY/OP 13:42 | PROVIDERS: ATTEND Internal Medicine | DX: E11.40 Type 2 diabetes mellitus with diabetic neuropathy, unspecified (principal) | CPT/HCPCS: 97802 ==

== ENCOUNTER 2021-11-03 21:10 | Inpatient (IN) | payer MEDICARE ==
[2021-11-03 21:55] LABS: #Eosinphils 0.2 thou/uL (0.0-0.7); #Lymphocytes 0.4 thou/uL (1.20-3.40); #Monocytes 0.6 thou/uL (0.11-0.59); #Neutrophils 7.6 thou/uL (1.40-6.50); %Basophils 0.1 % (0.0-1.0); %Eosinophils 2.2 % (0.0-10.0); %Lymphocytes 4.8 % (21.0-51.0); %Monocytes 6.9 % (0.0-10.0); Hemoglobin 8.6 g/dL (14.0-18.0); Mean Corpuscular HGB CONC 33.9 g/dL (32.0-36.0); Mean Corpuscular Volume 91.7 fL (78.0-98.0); Mean Platelet Volume 6.3 fL (7.4-10.4); Platelet Count 166 thou/uL (130-400); RBC Distribution Width 18.9 % (11.5-14.5); Red Blood Cell (RBC) Count 2.77 mill/uL (4.70-6.10); White Blood Cell (WBC) Count 8.9 thou/uL (4.8-10.8)
[2021-11-03] MEDS ORDERED: Acetaminophen 500 MG TAB ONE ×2 (22:10→22:13)
[2021-11-03 22:17] LABS: ALT (SGPT) 15 U/L (8-55); AST (SGOT) 18 U/L (5-34); Albumin 3.3 g/dL (3.4-4.8); Alkaline Phosphatase 107 U/L (40-110); Anion Gap 13 mmol/L (10-20); BUN (Urea Nitrogen) 32 mg/dL (8.4-25.7); Bilirubin, Total 3.3 mg/dL (0.2-1.2); Calc. Creatinine Clearance 0 mL/min (70-130); Calcium 8.2 mg/dL (7.8-10.44); Carbon Dioxide 26 mmol/L (23-31); Chloride 104 mmol/L (98-107); Globulin 2.2 g/dL (2.4-3.5); Glucose 140 mg/dL (83-110); Potassium 4.4 mmol/L (3.5-5.1); Protein, Total 5.5 g/dL (5.8-8.1); Sodium 139 mmol/L (136-145)
[2021-11-03] MEDS ORDERED: Dexamethasone 10 MG/ML VIAL ONE (23:50)
[2021-11-03] MEDS ORDERED: Enoxaparin Sodium 60 MG/0.6 ML SYRINGE ONE (23:50)
[2021-11-03] MEDS ORDERED: Enoxaparin Sodium 80 MG/0.8 ML SYRINGE ONE (23:56)
[2021-11-04 03:34] VITALS: BMI 52.7
[2021-11-04] MEDS ORDERED: Ondansetron PF 4 MG/2 ML Vial IVP PRN (11:17)
[2021-11-04] MEDS ORDERED: Dextrose 5% in Water 1,000 ML IV PRN (11:29)
[2021-11-04] MEDS ORDERED: Dextrose 50% Abboject 50 ML SYRINGE SLOW IVP PRN (11:29)
[2021-11-04] MEDS ORDERED: Dexamethasone 4 MG TAB PO SCH (11:30)
[2021-11-04] MEDS ORDERED: Amlodipine 10 MG TAB PO SCH (11:30)
[2021-11-04] MEDS ORDERED: Amlodipine 5 MG TAB ONE (11:32)
[2021-11-04] MEDS ORDERED: Dexamethasone 4 MG TAB ONE (11:48)
[2021-11-04] MEDS ORDERED: hydrALAZINE 20 MG/ML VIAL SLOW IVP PRN (16:04)
[2021-11-04] MEDS ORDERED: hydrALAZINE 20 MG/ML VIAL ONE (16:10)
[2021-11-04] MEDS: Gabapentin 300 MG CAP PO SCH (18:03)
[2021-11-04] MEDS: Carvedilol 6.25 MG TAB PO SCH (18:04)
[2021-11-04] MEDS: rOPINIRole HCl 0.5 MG TAB PO SCH ×2 (18:04→21:13)
[2021-11-04] MEDS: metFORMIN 500 MG TAB PO SCH (18:04)
[2021-11-04] MEDS: Atorvastatin Calcium 40 MG TAB PO SCH (21:13)
[2021-11-04] MEDS: Tamsulosin HCl 0.4 MG CAP PO SCH (21:13)
[2021-11-04] MEDS: Oxybutynin ER 5 MG TAB PO SCH (21:13)
[2021-11-04] MEDS: HumaLOG 300 UNITS/3 ML VIAL SC PRN (21:19)
[2021-11-05] MEDS: HumaLOG 300 UNITS/3 ML VIAL SC PRN (05:44)
[2021-11-05] MEDS: Levothyroxine Sodium 100 MCG TAB PO SCH (05:44)
[2021-11-05 07:50] LABS: #Lymphocytes 0.3 thou/uL (1.20-3.40); #Monocytes 0.8 thou/uL (0.11-0.59); #Neutrophils 10.8 thou/uL (1.40-6.50); %Eosinophils 0.2 % (0.0-10.0); %Lymphocytes 2.6 % (21.0-51.0); %Monocytes 6.5 % (0.0-10.0); %Neutrophils 90.7 % (42.0-75.0); Hemoglobin 7.9 g/dL (14.0-18.0); Mean Corpuscular HGB CONC 32.8 g/dL (32.0-36.0); Mean Corpuscular Hemoglobin 30.3 pg (27.0-31.0); Mean Corpuscular Volume 92.3 fL (78.0-98.0); Mean Platelet Volume 6.5 fL (7.4-10.4); Platelet Count 173 thou/uL (130-400); RBC Distribution Width 18.4 % (11.5-14.5); Red Blood Cell (RBC) Count 2.59 mill/uL (4.70-6.10); White Blood Cell (WBC) Count 11.9 thou/uL (4.8-10.8)
[2021-11-05] MEDS ORDERED: Pharmacy to Dose REMDESIVIR IVPB PRN (08:25)
[2021-11-05 08:40] LABS: Anion Gap 12 mmol/L (10-20); BUN (Urea Nitrogen) 40 mg/dL (8.4-25.7); Calc. Creatinine Clearance 91 mL/min (70-130); Calcium 8.7 mg/dL (7.8-10.44); Carbon Dioxide 25 mmol/L (23-31); Chloride 106 mmol/L (98-107); Glucose 147 mg/dL (83-110); Potassium 3.9 mmol/L (3.5-5.1); Sodium 139 mmol/L (136-145)
[2021-11-05] MEDS ORDERED: REMDESIVIR 200 MG in Sodium Chloride 0.9% 250 ML 210 ML IV SCH (09:00)
[2021-11-05] MEDS ORDERED: Dexamethasone 6 MG in Sodium Chloride 0.9% 50 ML IVPB SCH (09:00)
[2021-11-05] MEDS: Enoxaparin Sodium 40 MG/0.4 ML SYRINGE SC SCH (09:38)
[2021-11-05] MEDS: Gabapentin 300 MG CAP PO SCH ×2 (09:39→16:27)
[2021-11-05] MEDS: Ascorbic Acid 500 mg Chewable Tablet PO SCH (09:39)
[2021-11-05] MEDS: DULoxetine 60 MG CAP PO SCH (09:39)
[2021-11-05] MEDS: rOPINIRole HCl 0.5 MG TAB PO SCH ×3 (09:40→21:18)
[2021-11-05] MEDS: Carvedilol 6.25 MG TAB PO SCH ×2 (09:40→16:27)
[2021-11-05] MEDS: Cholecalciferol (Vitamin D3) 400 UNITS TAB PO SCH (09:40)
[2021-11-05] MEDS: Allopurinol 100 MG TAB PO SCH (09:40)
[2021-11-05] MEDS: Aspirin 81 mg Enteric Coated Tablet PO SCH (09:41)
[2021-11-05] MEDS: Amlodipine 10 MG TAB PO SCH (09:41)
[2021-11-05] MEDS: metFORMIN 500 MG TAB PO SCH ×2 (09:41→16:26)
[2021-11-05] MEDS: Furosemide 40 MG TAB PO SCH (09:41)
[2021-11-05] MEDS ORDERED: Dexamethasone 4 mg/ml Vial SLOW IVP SCH (09:45)
[2021-11-05] MEDS: Atorvastatin Calcium 40 MG TAB PO SCH (21:18)
[2021-11-05] MEDS: Tamsulosin HCl 0.4 MG CAP PO SCH (21:18)
[2021-11-05] MEDS: Oxybutynin ER 5 MG TAB PO SCH (21:18)
[2021-11-06] MEDS: Levothyroxine Sodium 100 MCG TAB PO SCH (05:24)
[2021-11-06 07:52] LABS: #Eosinphils 0.1 thou/uL (0.0-0.7); #Lymphocytes 0.3 thou/uL (1.20-3.40); #Monocytes 0.8 thou/uL (0.11-0.59); #Neutrophils 9.8 thou/uL (1.40-6.50); %Basophils 0.1 % (0.0-1.0); %Eosinophils 0.9 % (0.0-10.0); %Monocytes 7.6 % (0.0-10.0); %Neutrophils 88.5 % (42.0-75.0); Hemoglobin 7.7 g/dL (14.0-18.0); Mean Corpuscular HGB CONC 32.5 g/dL (32.0-36.0); Mean Corpuscular Hemoglobin 30.3 pg (27.0-31.0); Mean Corpuscular Volume 93.4 fL (78.0-98.0); Mean Platelet Volume 6.8 fL (7.4-10.4); Platelet Count 182 thou/uL (130-400); RBC Distribution Width 18.4 % (11.5-14.5); Red Blood Cell (RBC) Count 2.53 mill/uL (4.70-6.10)
[2021-11-06] MEDS: REMDESIVIR 100 MG in Sodium Chloride 0.9% 250 ML 230 ML IV SCH (07:57)
[2021-11-06] MEDS: Enoxaparin Sodium 40 MG/0.4 ML SYRINGE SC SCH (07:57)
[2021-11-06] MEDS: Cholecalciferol (Vitamin D3) 400 UNITS TAB PO SCH (07:58)
[2021-11-06] MEDS: Dexamethasone 4 mg/ml Vial SLOW IVP SCH (07:58)
[2021-11-06] MEDS: metFORMIN 500 MG TAB PO SCH (07:59)
[2021-11-06] MEDS: Allopurinol 100 MG TAB PO SCH (07:59)
[2021-11-06] MEDS: Furosemide 40 MG TAB PO SCH (07:59)
[2021-11-06] MEDS: rOPINIRole HCl 0.5 MG TAB PO SCH ×3 (07:59→20:29)
[2021-11-06] MEDS: Aspirin 81 mg Enteric Coated Tablet PO SCH (07:59)
[2021-11-06] MEDS: DULoxetine 60 MG CAP PO SCH (08:00)
[2021-11-06] MEDS: Gabapentin 300 MG CAP PO SCH ×2 (08:00→15:56)
[2021-11-06] MEDS: Amlodipine 10 MG TAB PO SCH (08:00)
[2021-11-06] MEDS: Ascorbic Acid 500 mg Chewable Tablet PO SCH (08:00)
[2021-11-06] MEDS: Carvedilol 6.25 MG TAB PO SCH ×2 (08:00→15:56)
[2021-11-06 08:04] LABS: ALT (SGPT) 19 U/L (8-55); AST (SGOT) 21 U/L (5-34); Albumin 3.1 g/dL (3.4-4.8); Alkaline Phosphatase 77 U/L (40-110); Anion Gap 13 mmol/L (10-20); BUN (Urea Nitrogen) 49 mg/dL (8.4-25.7); Bilirubin, Direct 1.3 mg/dL (0.1-0.3); Bilirubin, Total 2.7 mg/dL (0.2-1.2); Calc. Creatinine Clearance 80 mL/min (70-130); Calcium 8.5 mg/dL (7.8-10.44); Carbon Dioxide 24 mmol/L (23-31); Chloride 106 mmol/L (98-107); Glucose 135 mg/dL (83-110); Potassium 4.2 mmol/L (3.5-5.1); Protein, Total 5.8 g/dL (5.8-8.1); Sodium 139 mmol/L (136-145)
[2021-11-06] MEDS: Benzonatate 100 MG CAP PO PRN (15:56)
[2021-11-06] MEDS: Oxybutynin ER 5 MG TAB PO SCH (20:29)
[2021-11-06] MEDS: Tamsulosin HCl 0.4 MG CAP PO SCH (20:30)
[2021-11-06] MEDS: guaiFENesin ER 600 MG TAB PO SCH (20:30)
[2021-11-06] MEDS: Atorvastatin Calcium 40 MG TAB PO SCH (20:30)
[2021-11-07] MEDS: Levothyroxine Sodium 100 MCG TAB PO SCH (05:37)
[2021-11-07] MEDS: Benzonatate 100 MG CAP PO PRN (05:43)
[2021-11-07 09:03] LABS: ALT (SGPT) 18 U/L (8-55); AST (SGOT) 12 U/L (5-34); Albumin 3.2 g/dL (3.4-4.8); Alkaline Phosphatase 73 U/L (40-110); Anion Gap 13 mmol/L (10-20); BUN (Urea Nitrogen) 56 mg/dL (8.4-25.7); Bilirubin, Direct 1.6 mg/dL (0.1-0.3); Bilirubin, Total 2.7 mg/dL (0.2-1.2); Calc. Creatinine Clearance 77 mL/min (70-130); Calcium 8.7 mg/dL (7.8-10.44); Carbon Dioxide 25 mmol/L (23-31); Chloride 105 mmol/L (98-107); Glucose 141 mg/dL (83-110); Magnesium 2.4 mg/dL (1.6-2.6); Potassium 4.3 mmol/L (3.5-5.1); Protein, Total 5.9 g/dL (5.8-8.1); Sodium 139 mmol/L (136-145)
[2021-11-07] MEDS: Gabapentin 300 MG CAP PO SCH ×2 (09:37→14:39)
[2021-11-07] MEDS: rOPINIRole HCl 0.5 MG TAB PO SCH ×3 (09:37→20:22)
[2021-11-07] MEDS: Enoxaparin Sodium 40 MG/0.4 ML SYRINGE SC SCH (09:37)
[2021-11-07] MEDS: Carvedilol 6.25 MG TAB PO SCH ×2 (09:39→16:32)
[2021-11-07] MEDS: DULoxetine 60 MG CAP PO SCH (09:39)
[2021-11-07] MEDS: Ascorbic Acid 500 mg Chewable Tablet PO SCH (09:39)
[2021-11-07] MEDS: Furosemide 40 MG TAB PO SCH (09:40)
[2021-11-07] MEDS: Aspirin 81 mg Enteric Coated Tablet PO SCH (09:40)
[2021-11-07] MEDS: Amlodipine 10 MG TAB PO SCH (09:41)
[2021-11-07] MEDS: guaiFENesin ER 600 MG TAB PO SCH ×2 (09:41→20:23)
[2021-11-07] MEDS: Allopurinol 100 MG TAB PO SCH (09:41)
[2021-11-07] MEDS: Dexamethasone 4 mg/ml Vial SLOW IVP SCH ×2 (09:42→20:23)
[2021-11-07] MEDS: Cholecalciferol (Vitamin D3) 400 UNITS TAB PO SCH (10:19)
[2021-11-07] MEDS: REMDESIVIR 100 MG in Sodium Chloride 0.9% 250 ML 230 ML IV SCH (10:19)
[2021-11-07 10:50] LABS: Anisocytosis SLIGHT = 6-15 cells (100X) (0-5/hpf); Band 36 % (5-11); Hemoglobin 7.5 g/dL (14.0-18.0); Lymphocytes 2 % (21-51); MDiff Complete? YES; Mean Corpuscular HGB CONC 32.8 g/dL (32.0-36.0); Mean Corpuscular Hemoglobin 30.3 pg (27.0-31.0); Mean Corpuscular Volume 92.5 fL (78.0-98.0); Mean Platelet Volume 7.3 fL (7.4-10.4); Monocytes 2 % (0-10); Neutrophil 60 % (42-75); Platelet Count 160 thou/uL (130-400); Platelet Morphology Comment Appears Adequate; Polychromasia SLIGHT = 2-3 cells (100X) (0-2/hpf); Red Blood Cell (RBC) Count 2.48 mill/uL (4.70-6.10); White Blood Cell (WBC) Count 9.3 thou/uL (4.8-10.8)
[2021-11-07 11:20] LABS: CRP (Inflammatory) 20.84 mg/dL (= or < 0.5); Phosphorus 3.3 mg/dL (2.3-4.7)
[2021-11-07] MEDS ORDERED: Furosemide 40 MG/4 ML VIAL SLOW IVP SCH (15:00)
[2021-11-07] MEDS: HumaLOG 300 UNITS/3 ML VIAL SC PRN (16:36)
[2021-11-07] MEDS: Tamsulosin HCl 0.4 MG CAP PO SCH (20:23)
[2021-11-07] MEDS: Atorvastatin Calcium 40 MG TAB PO SCH (20:23)
[2021-11-07] MEDS: Oxybutynin ER 5 MG TAB PO SCH (20:23)
[2021-11-08] MEDS: Levothyroxine Sodium 100 MCG TAB PO SCH (04:14)
[2021-11-08] MEDS: HumaLOG 300 UNITS/3 ML VIAL SC PRN ×3 (06:13→17:23)
[2021-11-08 07:04] LABS: ALT (SGPT) 16 U/L (8-55); AST (SGOT) 8 U/L (5-34); Albumin 3.2 g/dL (3.4-4.8); Alkaline Phosphatase 76 U/L (40-110); Anion Gap 14 mmol/L (10-20); BUN (Urea Nitrogen) 60 mg/dL (8.4-25.7); Bilirubin, Direct 1.3 mg/dL (0.1-0.3); Bilirubin, Total 2.2 mg/dL (0.2-1.2); Calc. Creatinine Clearance 84 mL/min (70-130); Calcium 8.4 mg/dL (7.8-10.44); Carbon Dioxide 24 mmol/L (23-31); Chloride 104 mmol/L (98-107); Glucose 180 mg/dL (83-110); Potassium 4.1 mmol/L (3.5-5.1); Protein, Total 5.6 g/dL (5.8-8.1); Sodium 138 mmol/L (136-145)
[2021-11-08] MEDS: Cholecalciferol (Vitamin D3) 400 UNITS TAB PO SCH (08:56)
[2021-11-08] MEDS: Enoxaparin Sodium 40 MG/0.4 ML SYRINGE SC SCH ×2 (08:56→22:12)
[2021-11-08] MEDS: Aspirin 81 mg Enteric Coated Tablet PO SCH (08:57)
[2021-11-08] MEDS: Carvedilol 6.25 MG TAB PO SCH ×2 (08:57→17:00)
[2021-11-08] MEDS: rOPINIRole HCl 0.5 MG TAB PO SCH ×3 (08:57→22:09)
[2021-11-08] MEDS: Gabapentin 300 MG CAP PO SCH ×2 (08:58→14:42)
[2021-11-08] MEDS: Furosemide 40 MG TAB PO SCH (08:59)
[2021-11-08] MEDS: Amlodipine 10 MG TAB PO SCH (08:59)
[2021-11-08] MEDS: DULoxetine 60 MG CAP PO SCH (09:00)
[2021-11-08] MEDS: Ascorbic Acid 500 mg Chewable Tablet PO SCH (09:00)
[2021-11-08] MEDS: Dexamethasone 4 mg/ml Vial SLOW IVP SCH ×2 (09:00→22:11)
[2021-11-08] MEDS: guaiFENesin ER 600 MG TAB PO SCH ×2 (09:00→22:11)
[2021-11-08] MEDS: Allopurinol 100 MG TAB PO SCH (09:41)
[2021-11-08] MEDS: REMDESIVIR 100 MG in Sodium Chloride 0.9% 250 ML 230 ML IV SCH (09:41)
[2021-11-08] MEDS: Atorvastatin Calcium 40 MG TAB PO SCH (22:09)
[2021-11-08] MEDS: BARICITINIB 2 MG TAB PO SCH (22:10)
[2021-11-08] MEDS: Oxybutynin ER 5 MG TAB PO SCH (22:11)
[2021-11-08] MEDS: Tamsulosin HCl 0.4 MG CAP PO SCH (22:11)
[2021-11-09] MEDS: HumaLOG 300 UNITS/3 ML VIAL SC PRN ×3 (06:52→17:33)
[2021-11-09] MEDS: Levothyroxine Sodium 100 MCG TAB PO SCH (06:52)
[2021-11-09 07:59] LABS: ALT (SGPT) 23 U/L (8-55); AST (SGOT) 18 U/L (5-34); Albumin 3.2 g/dL (3.4-4.8); Alkaline Phosphatase 78 U/L (40-110); Anion Gap 19 mmol/L (10-20); BUN (Urea Nitrogen) 58 mg/dL (8.4-25.7); Bilirubin, Direct 1.1 mg/dL (0.1-0.3); Bilirubin, Total 1.9 mg/dL (0.2-1.2); Calc. Creatinine Clearance 84 mL/min (70-130); Calcium 8.5 mg/dL (7.8-10.44); Carbon Dioxide 17 mmol/L (23-31); Chloride 108 mmol/L (98-107); Glucose 202 mg/dL (83-110); Potassium 4.8 mmol/L (3.5-5.1); Protein, Total 5.8 g/dL (5.8-8.1); Sodium 139 mmol/L (136-145)
[2021-11-09] MEDS: Carvedilol 6.25 MG TAB PO SCH ×2 (09:26→17:36)
[2021-11-09] MEDS: REMDESIVIR 100 MG in Sodium Chloride 0.9% 250 ML 230 ML IV SCH (09:26)
[2021-11-09] MEDS: Enoxaparin Sodium 40 MG/0.4 ML SYRINGE SC SCH ×2 (09:27→21:25)
[2021-11-09] MEDS: Dexamethasone 4 mg/ml Vial SLOW IVP SCH ×2 (09:27→21:27)
[2021-11-09] MEDS: DULoxetine 60 MG CAP PO SCH (09:27)
[2021-11-09] MEDS: Cholecalciferol (Vitamin D3) 400 UNITS TAB PO SCH (09:27)
[2021-11-09] MEDS: Amlodipine 10 MG TAB PO SCH (09:28)
[2021-11-09] MEDS: Gabapentin 300 MG CAP PO SCH ×2 (09:28→15:49)
[2021-11-09] MEDS: Ascorbic Acid 500 mg Chewable Tablet PO SCH (09:29)
[2021-11-09] MEDS: Furosemide 40 MG TAB PO SCH (09:29)
[2021-11-09] MEDS: Allopurinol 100 MG TAB PO SCH (09:29)
[2021-11-09] MEDS: Aspirin 81 mg Enteric Coated Tablet PO SCH (09:30)
[2021-11-09] MEDS: guaiFENesin ER 600 MG TAB PO SCH ×2 (09:30→21:26)
[2021-11-09] MEDS: rOPINIRole HCl 0.5 MG TAB PO SCH ×3 (09:30→21:26)
[2021-11-09] MEDS: Oxybutynin ER 5 MG TAB PO SCH (21:25)
[2021-11-09] MEDS: Atorvastatin Calcium 40 MG TAB PO SCH (21:26)
[2021-11-09] MEDS: BARICITINIB 2 MG TAB PO SCH (21:26)
[2021-11-09] MEDS: Tamsulosin HCl 0.4 MG CAP PO SCH (21:26)
[2021-11-10] MEDS: HumaLOG 300 UNITS/3 ML VIAL SC PRN ×3 (06:37→16:35)
[2021-11-10] MEDS: Levothyroxine Sodium 100 MCG TAB PO SCH (06:37)
[2021-11-10] MEDS: Enoxaparin Sodium 40 MG/0.4 ML SYRINGE SC SCH ×2 (09:32→23:03)
[2021-11-10] MEDS: Aspirin 81 mg Enteric Coated Tablet PO SCH (09:32)
[2021-11-10] MEDS: Cholecalciferol (Vitamin D3) 400 UNITS TAB PO SCH (09:33)
[2021-11-10] MEDS: Allopurinol 100 MG TAB PO SCH (09:33)
[2021-11-10] MEDS: Gabapentin 300 MG CAP PO SCH ×2 (09:34→16:33)
[2021-11-10] MEDS: Dexamethasone 4 mg/ml Vial SLOW IVP SCH ×2 (09:34→23:05)
[2021-11-10] MEDS: rOPINIRole HCl 0.5 MG TAB PO SCH ×3 (09:35→23:04)
[2021-11-10] MEDS: Ascorbic Acid 500 mg Chewable Tablet PO SCH (09:35)
[2021-11-10] MEDS: Carvedilol 6.25 MG TAB PO SCH (09:36)
[2021-11-10] MEDS: DULoxetine 60 MG CAP PO SCH (09:36)
[2021-11-10] MEDS: Furosemide 40 MG TAB PO SCH (09:36)
[2021-11-10] MEDS: Amlodipine 10 MG TAB PO SCH (09:37)
[2021-11-10] MEDS: guaiFENesin ER 600 MG TAB PO SCH ×2 (09:37→23:05)
[2021-11-10] MEDS: hydrALAZINE 25 MG TAB PO SCH ×2 (16:34→23:04)
[2021-11-10] MEDS: Carvedilol 3.125 MG TAB PO SCH (17:23)
[2021-11-10] MEDS: Tamsulosin HCl 0.4 MG CAP PO SCH (23:04)
[2021-11-10] MEDS: BARICITINIB 2 MG TAB PO SCH (23:04)
[2021-11-10] MEDS: Oxybutynin ER 5 MG TAB PO SCH (23:04)
[2021-11-10] MEDS: Atorvastatin Calcium 40 MG TAB PO SCH (23:05)
[2021-11-11] MEDS: Levothyroxine Sodium 100 MCG TAB PO SCH (06:51)
[2021-11-11 08:28] LABS: ALT (SGPT) 31 U/L (8-55); AST (SGOT) 11 U/L (5-34); Albumin 3.1 g/dL (3.4-4.8); Alkaline Phosphatase 70 U/L (40-110); Anion Gap 12 mmol/L (10-20); BUN (Urea Nitrogen) 52 mg/dL (8.4-25.7); Bilirubin, Direct 0.9 mg/dL (0.1-0.3); Bilirubin, Total 1.6 mg/dL (0.2-1.2); Calc. Creatinine Clearance 87 mL/min (70-130); Calcium 8.7 mg/dL (7.8-10.44); Carbon Dioxide 28 mmol/L (23-31); Chloride 104 mmol/L (98-107); Glucose 203 mg/dL (83-110); Potassium 4.6 mmol/L (3.5-5.1); Protein, Total 5.5 g/dL (5.8-8.1); Sodium 139 mmol/L (136-145)
[2021-11-11] MEDS: Cholecalciferol (Vitamin D3) 400 UNITS TAB PO SCH (08:37)
[2021-11-11] MEDS: Gabapentin 300 MG CAP PO SCH ×2 (08:38→15:08)
[2021-11-11] MEDS: DULoxetine 60 MG CAP PO SCH (08:39)
[2021-11-11] MEDS: Ascorbic Acid 500 mg Chewable Tablet PO SCH (08:39)
[2021-11-11] MEDS: Allopurinol 100 MG TAB PO SCH (08:39)
[2021-11-11] MEDS: Furosemide 40 MG TAB PO SCH (08:39)
[2021-11-11] MEDS: hydrALAZINE 25 MG TAB PO SCH ×3 (08:40→20:24)
[2021-11-11] MEDS: Amlodipine 10 MG TAB PO SCH (08:40)
[2021-11-11] MEDS: Dexamethasone 4 mg/ml Vial SLOW IVP SCH ×2 (08:41→20:22)
[2021-11-11] MEDS: Aspirin 81 mg Enteric Coated Tablet PO SCH (08:41)
[2021-11-11] MEDS: rOPINIRole HCl 0.5 MG TAB PO SCH ×3 (08:41→20:21)
[2021-11-11] MEDS: guaiFENesin ER 600 MG TAB PO SCH ×2 (08:41→20:22)
[2021-11-11] MEDS: Enoxaparin Sodium 40 MG/0.4 ML SYRINGE SC SCH ×2 (08:41→20:22)
[2021-11-11] MEDS: Carvedilol 3.125 MG TAB PO SCH ×2 (08:42→18:24)
[2021-11-11 09:06] LABS: #Lymphocytes 0.5 thou/uL (1.20-3.40); #Monocytes 0.4 thou/uL (0.11-0.59); #Neutrophils 7.5 thou/uL (1.40-6.50); %Basophils 0.2 % (0.0-1.0); %Eosinophils 0.5 % (0.0-10.0); %Lymphocytes 5.5 % (21.0-51.0); %Monocytes 4.2 % (0.0-10.0); %Neutrophils 89.6 % (42.0-75.0); Hemoglobin 8.5 g/dL (14.0-18.0); Mean Corpuscular HGB CONC 32.3 g/dL (32.0-36.0); Mean Corpuscular Volume 92.8 fL (78.0-98.0); Mean Platelet Volume 7.3 fL (7.4-10.4); Platelet Count 179 thou/uL (130-400); RBC Distribution Width 17.7 % (11.5-14.5); Red Blood Cell (RBC) Count 2.82 mill/uL (4.70-6.10); White Blood Cell (WBC) Count 8.4 thou/uL (4.8-10.8)
[2021-11-11] MEDS: HumaLOG 300 UNITS/3 ML VIAL SC PRN ×2 (12:53→17:33)
[2021-11-11] MEDS: BARICITINIB 2 MG TAB PO SCH (20:21)
[2021-11-11] MEDS: Tamsulosin HCl 0.4 MG CAP PO SCH (20:21)
[2021-11-11] MEDS: Atorvastatin Calcium 40 MG TAB PO SCH (20:22)
[2021-11-11] MEDS: Oxybutynin ER 5 MG TAB PO SCH (20:23)
[2021-11-12] MEDS: Acetaminophen 325 MG TAB PO PRN (05:37)
[2021-11-12] MEDS: Levothyroxine Sodium 100 MCG TAB PO SCH (05:38)
[2021-11-12] MEDS: Cholecalciferol (Vitamin D3) 400 UNITS TAB PO SCH (09:22)
[2021-11-12] MEDS: Dexamethasone 4 mg/ml Vial SLOW IVP SCH ×2 (09:22→21:23)
[2021-11-12] MEDS: Enoxaparin Sodium 40 MG/0.4 ML SYRINGE SC SCH ×2 (09:22→21:23)
[2021-11-12] MEDS: Aspirin 81 mg Enteric Coated Tablet PO SCH (09:23)
[2021-11-12] MEDS: Amlodipine 10 MG TAB PO SCH (09:23)
[2021-11-12] MEDS: rOPINIRole HCl 0.5 MG TAB PO SCH ×3 (09:23→21:21)
[2021-11-12] MEDS: Gabapentin 300 MG CAP PO SCH ×2 (09:23→13:58)
[2021-11-12] MEDS: Ascorbic Acid 500 mg Chewable Tablet PO SCH (09:24)
[2021-11-12] MEDS: Allopurinol 100 MG TAB PO SCH (09:24)
[2021-11-12] MEDS: guaiFENesin ER 600 MG TAB PO SCH ×2 (09:24→21:21)
[2021-11-12] MEDS: hydrALAZINE 25 MG TAB PO SCH ×4 (09:24→21:22)
[2021-11-12] MEDS: Furosemide 40 MG TAB PO SCH (09:25)
[2021-11-12] MEDS: DULoxetine 60 MG CAP PO SCH (09:25)
[2021-11-12] MEDS: Carvedilol 3.125 MG TAB PO SCH ×2 (09:25→16:58)
[2021-11-12] MEDS: HumaLOG 300 UNITS/3 ML VIAL SC PRN ×2 (13:58→21:25)
[2021-11-12] MEDS: Atorvastatin Calcium 40 MG TAB PO SCH (21:21)
[2021-11-12] MEDS: BARICITINIB 2 MG TAB PO SCH (21:22)
[2021-11-12] MEDS: Oxybutynin ER 5 MG TAB PO SCH (21:22)
[2021-11-12] MEDS: Tamsulosin HCl 0.4 MG CAP PO SCH (21:23)
[2021-11-13] MEDS: HumaLOG 300 UNITS/3 ML VIAL SC PRN ×3 (05:40→16:39)
[2021-11-13] MEDS: Levothyroxine Sodium 100 MCG TAB PO SCH (05:40)
[2021-11-13] MEDS: Furosemide 40 MG TAB PO SCH (08:56)
[2021-11-13] MEDS: Allopurinol 100 MG TAB PO SCH (08:56)
[2021-11-13] MEDS: Ascorbic Acid 500 mg Chewable Tablet PO SCH (08:56)
[2021-11-13] MEDS: Cholecalciferol (Vitamin D3) 400 UNITS TAB PO SCH (08:56)
[2021-11-13] MEDS: guaiFENesin ER 600 MG TAB PO SCH ×2 (08:56→20:27)
[2021-11-13] MEDS: Amlodipine 10 MG TAB PO SCH (08:57)
[2021-11-13] MEDS: Gabapentin 300 MG CAP PO SCH ×2 (08:57→14:51)
[2021-11-13] MEDS: hydrALAZINE 25 MG TAB PO SCH ×3 (08:57→20:27)
[2021-11-13] MEDS: DULoxetine 60 MG CAP PO SCH (08:58)
[2021-11-13] MEDS: rOPINIRole HCl 0.5 MG TAB PO SCH ×3 (08:58→20:28)
[2021-11-13] MEDS: Dexamethasone 4 mg/ml Vial SLOW IVP SCH ×2 (08:58→20:27)
[2021-11-13] MEDS: Aspirin 81 mg Enteric Coated Tablet PO SCH (08:58)
[2021-11-13] MEDS: Enoxaparin Sodium 40 MG/0.4 ML SYRINGE SC SCH ×2 (08:58→20:27)
[2021-11-13] MEDS: Carvedilol 3.125 MG TAB PO SCH ×2 (08:59→18:10)
[2021-11-13] MEDS: Acetaminophen 325 MG TAB PO PRN (14:51)
[2021-11-13] MEDS ORDERED: hydrALAZINE 25 MG TAB PO SCH (15:15)
[2021-11-13] MEDS: Atorvastatin Calcium 40 MG TAB PO SCH (20:26)
[2021-11-13] MEDS: BARICITINIB 2 MG TAB PO SCH (20:27)
[2021-11-13] MEDS: Oxybutynin ER 5 MG TAB PO SCH (20:28)
[2021-11-13] MEDS: Tamsulosin HCl 0.4 MG CAP PO SCH (20:28)
[2021-11-14] MEDS: Acetaminophen 325 MG TAB PO PRN ×2 (01:25→09:05)
[2021-11-14] MEDS: Levothyroxine Sodium 100 MCG TAB PO SCH (05:16)
[2021-11-14 08:29] LABS: #Lymphocytes 0.4 thou/uL (1.20-3.40); #Monocytes 0.5 thou/uL (0.11-0.59); #Neutrophils 12.7 thou/uL (1.40-6.50); %Basophils 0.1 % (0.0-1.0); %Lymphocytes 2.8 % (21.0-51.0); %Monocytes 3.8 % (0.0-10.0); %Neutrophils 93.3 % (42.0-75.0); Hemoglobin 9.1 g/dL (14.0-18.0); Mean Corpuscular HGB CONC 32.8 g/dL (32.0-36.0); Mean Corpuscular Hemoglobin 30.9 pg (27.0-31.0); Mean Corpuscular Volume 94.3 fL (78.0-98.0); Mean Platelet Volume 7.4 fL (7.4-10.4); Platelet Count 130 thou/uL (130-400); RBC Distribution Width 17.6 % (11.5-14.5); Red Blood Cell (RBC) Count 2.96 mill/uL (4.70-6.10); White Blood Cell (WBC) Count 13.6 thou/uL (4.8-10.8)
[2021-11-14 08:54] LABS: ALT (SGPT) 20 U/L (8-55); AST (SGOT) 8 U/L (5-34); Albumin 3.1 g/dL (3.4-4.8); Alkaline Phosphatase 60 U/L (40-110); Anion Gap 12 mmol/L (10-20); BUN (Urea Nitrogen) 45 mg/dL (8.4-25.7); Bilirubin, Direct 0.9 mg/dL (0.1-0.3); Bilirubin, Total 1.5 mg/dL (0.2-1.2); Calc. Creatinine Clearance 100 mL/min (70-130); Calcium 8.8 mg/dL (7.8-10.44); Carbon Dioxide 28 mmol/L (23-31); Chloride 102 mmol/L (98-107); Glucose 184 mg/dL (83-110); Potassium 4.3 mmol/L (3.5-5.1); Protein, Total 5.5 g/dL (5.8-8.1); Sodium 138 mmol/L (136-145)
[2021-11-14] MEDS: Carvedilol 3.125 MG TAB PO SCH ×2 (08:56→18:18)
[2021-11-14] MEDS: Cholecalciferol (Vitamin D3) 400 UNITS TAB PO SCH (09:12)
[2021-11-14] MEDS: Aspirin 81 mg Enteric Coated Tablet PO SCH (09:12)
[2021-11-14] MEDS: DULoxetine 60 MG CAP PO SCH (09:12)
[2021-11-14] MEDS: hydrALAZINE 25 MG TAB PO SCH ×3 (09:15→20:40)
[2021-11-14] MEDS: Allopurinol 100 MG TAB PO SCH (09:16)
[2021-11-14] MEDS: Ascorbic Acid 500 mg Chewable Tablet PO SCH (09:17)
[2021-11-14] MEDS: Furosemide 40 MG TAB PO SCH (09:17)
[2021-11-14] MEDS: guaiFENesin ER 600 MG TAB PO SCH ×2 (09:18→20:40)
[2021-11-14] MEDS: Gabapentin 300 MG CAP PO SCH ×2 (09:18→14:06)
[2021-11-14] MEDS: rOPINIRole HCl 0.5 MG TAB PO SCH ×3 (09:19→20:41)
[2021-11-14] MEDS: Enoxaparin Sodium 40 MG/0.4 ML SYRINGE SC SCH ×2 (09:22→20:40)
[2021-11-14] MEDS: Dexamethasone 4 mg/ml Vial SLOW IVP SCH ×2 (09:24→20:39)
[2021-11-14] MEDS: Amlodipine 10 MG TAB PO SCH (09:27)
[2021-11-14] MEDS: HumaLOG 300 UNITS/3 ML VIAL SC PRN ×3 (09:28→18:24)
[2021-11-14 10:22] LABS: Troponin I 0.043 ng/mL (< 0.028)
[2021-11-14] MEDS ORDERED: Morphine 4 MG/ML VIAL SLOW IVP PRN (13:08)
[2021-11-14] MEDS: Nitroglycerin 0.4 MG TAB (25 Tab Bottle) SL PRN ×2 (14:12→18:49)
[2021-11-14 14:17] LABS: Troponin I Less than 0.010 ng/mL (< 0.028)
[2021-11-14] MEDS: Morphine 4 MG/ML VIAL SLOW IVP PRN (18:47)
[2021-11-14] MEDS: Lidocaine 5% Patch TD SCH (18:48)
[2021-11-14] MEDS: BARICITINIB 2 MG TAB PO SCH (20:39)
[2021-11-14] MEDS: Atorvastatin Calcium 40 MG TAB PO SCH (20:39)
[2021-11-14] MEDS: Oxybutynin ER 5 MG TAB PO SCH (20:40)
[2021-11-14] MEDS: Tamsulosin HCl 0.4 MG CAP PO SCH (20:41)
[2021-11-15] MEDS: Nitroglycerin 0.4 MG TAB (25 Tab Bottle) SL PRN ×2 (00:38→00:52)
[2021-11-15] MEDS: Morphine 4 MG/ML VIAL SLOW IVP PRN (01:03)
[2021-11-15] MEDS ORDERED: Lidocaine 2% Viscous Solution 20 ML, Aluminum & Magnesium Hydroxide 30 ML, Donnatal Eli... SSW SCH (02:30)
[2021-11-15 02:55] LABS: Band 12 % (5-11); Hemoglobin 8.9 g/dL (14.0-18.0); MDiff Complete? YES; Mean Corpuscular HGB CONC 32.4 g/dL (32.0-36.0); Mean Corpuscular Hemoglobin 30.7 pg (27.0-31.0); Mean Corpuscular Volume 94.7 fL (78.0-98.0); Mean Platelet Volume 7.2 fL (7.4-10.4); Monocytes 1 % (0-10); Neutrophil 87 % (42-75); Platelet Count 124 thou/uL (130-400); Platelet Morphology Comment Appears Adequate; RBC Distribution Width 17.4 % (11.5-14.5); Red Blood Cell (RBC) Count 2.91 mill/uL (4.70-6.10); White Blood Cell (WBC) Count 22.9 thou/uL (4.8-10.8)
[2021-11-15 03:06] LABS: Anion Gap 16 mmol/L (10-20); BUN (Urea Nitrogen) 49 mg/dL (8.4-25.7); Calc. Creatinine Clearance 81 mL/min (70-130); Calcium 8.5 mg/dL (7.8-10.44); Carbon Dioxide 25 mmol/L (23-31); Chloride 102 mmol/L (98-107); Glucose 213 mg/dL (83-110); Sodium 138 mmol/L (136-145); Troponin I Less than 0.010 ng/mL (< 0.028)
[2021-11-15] MEDS ORDERED: Cyclobenzaprine 10 MG TAB PO PRN (04:22)
[2021-11-15] MEDS: Levothyroxine Sodium 100 MCG TAB PO SCH (05:37)
[2021-11-15] MEDS: HumaLOG 300 UNITS/3 ML VIAL SC PRN (05:40)
[2021-11-15] MEDS: Dexamethasone 4 mg/ml Vial SLOW IVP SCH ×2 (08:05→20:28)
[2021-11-15] MEDS: Enoxaparin Sodium 40 MG/0.4 ML SYRINGE SC SCH ×2 (08:06→20:29)
[2021-11-15] MEDS: rOPINIRole HCl 0.5 MG TAB PO SCH ×3 (08:07→20:31)
[2021-11-15] MEDS: hydrALAZINE 25 MG TAB PO SCH ×3 (08:07→20:30)
[2021-11-15] MEDS: Allopurinol 100 MG TAB PO SCH (08:07)
[2021-11-15] MEDS: DULoxetine 60 MG CAP PO SCH (08:08)
[2021-11-15] MEDS: guaiFENesin ER 600 MG TAB PO SCH ×2 (08:08→20:30)
[2021-11-15] MEDS: Cholecalciferol (Vitamin D3) 400 UNITS TAB PO SCH (08:08)
[2021-11-15] MEDS: Gabapentin 300 MG CAP PO SCH ×2 (08:09→16:17)
[2021-11-15] MEDS: Carvedilol 3.125 MG TAB PO SCH ×2 (08:10→16:18)
[2021-11-15] MEDS: Ascorbic Acid 500 mg Chewable Tablet PO SCH (08:10)
[2021-11-15] MEDS: Furosemide 40 MG TAB PO SCH (08:10)
[2021-11-15] MEDS: Aspirin 81 mg Enteric Coated Tablet PO SCH (08:10)
[2021-11-15] MEDS: Amlodipine 10 MG TAB PO SCH (08:11)
[2021-11-15] MEDS: Transdermal Patch Removal TOP SCH (08:52)
[2021-11-15] MEDS ORDERED: Furosemide 40 MG/4 ML VIAL SLOW IVP SCH (16:15)
[2021-11-15] MEDS ORDERED: cloNIDine 0.1 MG TAB PO SCH (16:15)
[2021-11-15] MEDS: BARICITINIB 2 MG TAB PO SCH (20:27)
[2021-11-15] MEDS: Atorvastatin Calcium 40 MG TAB PO SCH (20:27)
[2021-11-15] MEDS: Lidocaine 5% Patch TD SCH (20:27)
[2021-11-15] MEDS: cloNIDine 0.1 MG TAB PO SCH (20:28)
[2021-11-15] MEDS: Oxybutynin ER 5 MG TAB PO SCH (20:31)
[2021-11-15] MEDS: Tamsulosin HCl 0.4 MG CAP PO SCH (20:31)
[2021-11-16] MEDS ORDERED: Furosemide 40 MG/4 ML VIAL SLOW IVP SCH (06:00)
[2021-11-16] MEDS: HumaLOG 300 UNITS/3 ML VIAL SC PRN (06:21)
[2021-11-16] MEDS: Levothyroxine Sodium 100 MCG TAB PO SCH (06:21)
[2021-11-16 06:39] LABS: Anion Gap 15 mmol/L (10-20); BUN (Urea Nitrogen) 57 mg/dL (8.4-25.7); Calc. Creatinine Clearance 84 mL/min (70-130); Calcium 8.3 mg/dL (7.8-10.44); Carbon Dioxide 23 mmol/L (23-31); Glucose 194 mg/dL (83-110); Potassium 4.9 mmol/L (3.5-5.1)
[2021-11-16 06:49] LABS: Hemoglobin 8.9 g/dL (14.0-18.0); Mean Corpuscular Hemoglobin 31.2 pg (27.0-31.0); Mean Corpuscular Volume 94.4 fL (78.0-98.0); Mean Platelet Volume 8.6 fL (7.4-10.4); Platelet Count 104 thou/uL (130-400); RBC Distribution Width 17.2 % (11.5-14.5); Red Blood Cell (RBC) Count 2.84 mill/uL (4.70-6.10); White Blood Cell (WBC) Count 21.7 thou/uL (4.8-10.8)
[2021-11-16 07:31] LABS: Band 10 % (5-11); Hypochromia SLIGHT = 6-15 cells (100X) (0-5/hpf); Lymphocytes 1 % (21-51); MDiff Complete? YES; Monocytes 2 % (0-10); Neutrophil 87 % (42-75); Platelet Morphology Comment Appears Decreased; Polychromasia SLIGHT = 2-3 cells (100X) (0-2/hpf); Tear Drops SLIGHT = 2-5 cells (100X) (0-1/hpf)
[2021-11-16 07:36] LABS: Chloride 101 mmol/L (98-107); Sodium 134 mmol/L (136-145)
[2021-11-16] MEDS: Allopurinol 100 MG TAB PO SCH (07:52)
[2021-11-16] MEDS: Cholecalciferol (Vitamin D3) 400 UNITS TAB PO SCH (07:52)
[2021-11-16] MEDS: Gabapentin 300 MG CAP PO SCH ×2 (07:52→15:35)
[2021-11-16] MEDS: Amlodipine 10 MG TAB PO SCH (07:53)
[2021-11-16] MEDS: Carvedilol 3.125 MG TAB PO SCH ×2 (07:53→15:36)
[2021-11-16] MEDS: DULoxetine 60 MG CAP PO SCH (07:53)
[2021-11-16] MEDS: Furosemide 40 MG TAB PO SCH (07:54)
[2021-11-16] MEDS: Aspirin 81 mg Enteric Coated Tablet PO SCH (07:54)
[2021-11-16] MEDS: rOPINIRole HCl 0.5 MG TAB PO SCH ×3 (07:54→20:26)
[2021-11-16] MEDS: Ascorbic Acid 500 mg Chewable Tablet PO SCH (07:55)
[2021-11-16] MEDS: hydrALAZINE 25 MG TAB PO SCH ×3 (07:55→20:29)
[2021-11-16] MEDS: Dexamethasone 4 mg/ml Vial SLOW IVP SCH ×2 (07:55→20:32)
[2021-11-16] MEDS: Enoxaparin Sodium 40 MG/0.4 ML SYRINGE SC SCH ×2 (07:55→20:32)
[2021-11-16] MEDS: guaiFENesin ER 600 MG TAB PO SCH ×2 (07:55→20:26)
[2021-11-16] MEDS: cloNIDine 0.1 MG TAB PO SCH ×2 (07:56→20:31)
[2021-11-16] MEDS: Transdermal Patch Removal TOP SCH (07:56)
[2021-11-16] MEDS: Isosorbide Dinitrate 5 MG TAB PO SCH ×2 (10:00→20:30)
[2021-11-16] MEDS ORDERED: Aluminum & Magnesium Hydroxide 60 ML, diphenhydrAMINE 150 MG, Lidocaine 2% Viscous Solu... SSW PRN (16:07)
[2021-11-16] MEDS: Lidocaine 5% Patch TD SCH (20:24)
[2021-11-16] MEDS: Tamsulosin HCl 0.4 MG CAP PO SCH (20:27)
[2021-11-16] MEDS: Atorvastatin Calcium 40 MG TAB PO SCH (20:27)
[2021-11-16] MEDS: BARICITINIB 2 MG TAB PO SCH (20:29)
[2021-11-16] MEDS: Oxybutynin ER 5 MG TAB PO SCH (20:30)
[2021-11-16] MEDS: Lantus 1000 UNITS/10 ML VIAL SC SCH (20:41)
[2021-11-17 05:14] LABS: #Lymphocytes 0.1 thou/uL (1.20-3.40); #Monocytes 0.4 thou/uL (0.11-0.59); #Neutrophils 14.8 thou/uL (1.40-6.50); %Basophils 0.1 % (0.0-1.0); %Eosinophils 0.1 % (0.0-10.0); %Lymphocytes 0.9 % (21.0-51.0); %Monocytes 2.6 % (0.0-10.0); %Neutrophils 96.2 % (42.0-75.0); Hemoglobin 8.1 g/dL (14.0-18.0); Mean Corpuscular Hemoglobin 30.3 pg (27.0-31.0); Mean Corpuscular Volume 94.6 fL (78.0-98.0); Mean Platelet Volume 8.1 fL (7.4-10.4); Platelet Count 108 thou/uL (130-400); RBC Distribution Width 16.9 % (11.5-14.5); Red Blood Cell (RBC) Count 2.68 mill/uL (4.70-6.10); White Blood Cell (WBC) Count 15.3 thou/uL (4.8-10.8)
[2021-11-17] MEDS: Levothyroxine Sodium 100 MCG TAB PO SCH (05:23)
[2021-11-17 05:35] LABS: ALT (SGPT) 13 U/L (8-55); AST (SGOT) 10 U/L (5-34); Albumin 2.7 g/dL (3.4-4.8); Alkaline Phosphatase 68 U/L (40-110); Anion Gap 19 mmol/L (10-20); BUN (Urea Nitrogen) 70 mg/dL (8.4-25.7); Bilirubin, Direct 1.2 mg/dL (0.1-0.3); Calc. Creatinine Clearance 66 mL/min (70-130); Calcium 8.2 mg/dL (7.8-10.44); Carbon Dioxide 21 mmol/L (23-31); Chloride 99 mmol/L (98-107); Glucose 215 mg/dL (83-110); Potassium 4.5 mmol/L (3.5-5.1); Protein, Total 5.1 g/dL (5.8-8.1); Sodium 134 mmol/L (136-145)
[2021-11-17] MEDS: HumaLOG 300 UNITS/3 ML VIAL SC PRN ×2 (06:28→17:54)
[2021-11-17] MEDS: Lantus 1000 UNITS/10 ML VIAL SC SCH ×2 (10:05→22:38)
[2021-11-17] MEDS: Enoxaparin Sodium 40 MG/0.4 ML SYRINGE SC SCH ×2 (10:06→20:48)
[2021-11-17] MEDS: Carvedilol 3.125 MG TAB PO SCH ×2 (10:07→16:05)
[2021-11-17] MEDS: Transdermal Patch Removal TOP SCH (10:08)
[2021-11-17] MEDS: Allopurinol 100 MG TAB PO SCH (10:09)
[2021-11-17] MEDS: Amlodipine 10 MG TAB PO SCH (10:09)
[2021-11-17] MEDS: Dexamethasone 4 mg/ml Vial SLOW IVP SCH ×2 (10:10→20:46)
[2021-11-17] MEDS: Aspirin 81 mg Enteric Coated Tablet PO SCH (10:10)
[2021-11-17] MEDS: cloNIDine 0.1 MG TAB PO SCH ×2 (10:10→20:46)
[2021-11-17] MEDS: Cholecalciferol (Vitamin D3) 400 UNITS TAB PO SCH (10:10)
[2021-11-17] MEDS: Ascorbic Acid 500 mg Chewable Tablet PO SCH (10:10)
[2021-11-17] MEDS: DULoxetine 60 MG CAP PO SCH (10:11)
[2021-11-17] MEDS: Gabapentin 300 MG CAP PO SCH ×2 (10:11→16:04)
[2021-11-17] MEDS: Furosemide 40 MG TAB PO SCH (10:11)
[2021-11-17] MEDS: hydrALAZINE 25 MG TAB PO SCH ×3 (10:12→20:48)
[2021-11-17] MEDS: Isosorbide Dinitrate 5 MG TAB PO SCH (10:12)
[2021-11-17] MEDS: guaiFENesin ER 600 MG TAB PO SCH ×2 (10:12→20:48)
[2021-11-17] MEDS: rOPINIRole HCl 0.5 MG TAB PO SCH ×3 (10:58→20:49)
[2021-11-17] MEDS: traMADol HCl 50 MG TAB PO PRN (16:05)
[2021-11-17 17:31] LABS: Actual Bicarbonate (HCO3a) 27.4 mEq/L (22-28); Base Excess (BEa) 3.3 mEq/L (-2.0 to +3.0); CO2 Tension 39.7 mmHg (35.0-45.0); Calcium, Ionized (arterial) 1.11 mmol/L (1.12-1.30); Carboxyhemoglobin (COHb) 2.5 gm% (0.0-3.0); Hemoglobin (Hb) 8.7 g/dL (14.0-18.0); O2 Tension (PaO2), arterial 61.7 mmHg (> 70.0); Potassium - ABG Lab 4.34 mmol/L (3.70-5.30); pH, Arterial 7.46 (7.35-7.45)
[2021-11-17 17:33] LABS: ALV-art Gradient 88.315 mmHg (0-20); Puncture Site RRA
[2021-11-17] MEDS: Lidocaine 5% Patch TD SCH (20:44)
[2021-11-17] MEDS: Atorvastatin Calcium 40 MG TAB PO SCH (20:45)
[2021-11-17] MEDS: BARICITINIB 2 MG TAB PO SCH (20:46)
[2021-11-17] MEDS: Isosorbide Dinitrate 20 MG TAB PO SCH (20:49)
[2021-11-17] MEDS: Tamsulosin HCl 0.4 MG CAP PO SCH (20:49)
[2021-11-17] MEDS: Oxybutynin ER 5 MG TAB PO SCH (20:49)
[2021-11-18 05:52] LABS: Anion Gap 15 mmol/L (10-20); BUN (Urea Nitrogen) 87 mg/dL (8.4-25.7); Calc. Creatinine Clearance 60 mL/min (70-130); Calcium 8.5 mg/dL (7.8-10.44); Carbon Dioxide 27 mmol/L (23-31); Chloride 97 mmol/L (98-107); Glucose 185 mg/dL (83-110); Potassium 4.5 mmol/L (3.5-5.1); Sodium 134 mmol/L (136-145)
[2021-11-18] MEDS: Levothyroxine Sodium 100 MCG TAB PO SCH (06:18)
[2021-11-18 06:53] LABS: #Lymphocytes 0.1 thou/uL (1.20-3.40); #Monocytes 0.5 thou/uL (0.11-0.59); #Neutrophils 12.2 thou/uL (1.40-6.50); %Eosinophils 0.1 % (0.0-10.0); %Lymphocytes 1.1 % (21.0-51.0); %Monocytes 3.8 % (0.0-10.0); %Neutrophils 95.1 % (42.0-75.0); Hemoglobin 8.2 g/dL (14.0-18.0); Mean Corpuscular HGB CONC 31.3 g/dL (32.0-36.0); Mean Corpuscular Hemoglobin 30.2 pg (27.0-31.0); Mean Corpuscular Volume 96.5 fL (78.0-98.0); Mean Platelet Volume 8.2 fL (7.4-10.4); Platelet Count 95 thou/uL (130-400); RBC Distribution Width 16.8 % (11.5-14.5); White Blood Cell (WBC) Count 12.9 thou/uL (4.8-10.8)
[2021-11-18] MEDS: Dexamethasone 4 mg/ml Vial SLOW IVP SCH ×2 (09:16→20:48)
[2021-11-18] MEDS: Lantus 1000 UNITS/10 ML VIAL SC SCH ×2 (09:22→20:54)
[2021-11-18] MEDS: Carvedilol 3.125 MG TAB PO SCH ×2 (09:25→16:42)
[2021-11-18] MEDS: Allopurinol 100 MG TAB PO SCH (09:26)
[2021-11-18] MEDS: Transdermal Patch Removal TOP SCH (09:26)
[2021-11-18] MEDS: Amlodipine 10 MG TAB PO SCH (09:27)
[2021-11-18] MEDS: Aspirin 81 mg Enteric Coated Tablet PO SCH (09:27)
[2021-11-18] MEDS: Ascorbic Acid 500 mg Chewable Tablet PO SCH (09:27)
[2021-11-18] MEDS: Cholecalciferol (Vitamin D3) 400 UNITS TAB PO SCH (09:27)
[2021-11-18] MEDS: cloNIDine 0.1 MG TAB PO SCH ×2 (09:28→20:30)
[2021-11-18] MEDS: Enoxaparin Sodium 40 MG/0.4 ML SYRINGE SC SCH ×2 (09:28→20:27)
[2021-11-18] MEDS: DULoxetine 60 MG CAP PO SCH (09:28)
[2021-11-18] MEDS: Furosemide 40 MG TAB PO SCH (09:28)
[2021-11-18] MEDS: guaiFENesin ER 600 MG TAB PO SCH ×2 (09:29→20:30)
[2021-11-18] MEDS: Gabapentin 300 MG CAP PO SCH ×2 (09:29→14:41)
[2021-11-18] MEDS: hydrALAZINE 25 MG TAB PO SCH ×3 (09:29→22:11)
[2021-11-18] MEDS: rOPINIRole HCl 0.5 MG TAB PO SCH ×3 (09:30→20:36)
[2021-11-18] MEDS: Isosorbide Dinitrate 20 MG TAB PO SCH ×2 (09:30→20:30)
[2021-11-18] MEDS: HumaLOG 300 UNITS/3 ML VIAL SC PRN (16:42)
[2021-11-18] MEDS: Lidocaine 5% Patch TD SCH (20:26)
[2021-11-18] MEDS: Atorvastatin Calcium 40 MG TAB PO SCH (20:29)
[2021-11-18] MEDS: BARICITINIB 2 MG TAB PO SCH (20:30)
[2021-11-18] MEDS: Tamsulosin HCl 0.4 MG CAP PO SCH (20:30)
[2021-11-18] MEDS: Oxybutynin ER 5 MG TAB PO SCH (20:36)
[2021-11-19] MEDS: traMADol HCl 50 MG TAB PO PRN (01:55)
[2021-11-19 04:25] LABS: Anion Gap 10 mmol/L (10-20); BUN (Urea Nitrogen) 111 mg/dL (8.4-25.7); Calc. Creatinine Clearance 54 mL/min (70-130); Calcium 8.2 mg/dL (7.8-10.44); Carbon Dioxide 30 mmol/L (23-31); Chloride 97 mmol/L (98-107); Glucose 238 mg/dL (83-110); Potassium 4.8 mmol/L (3.5-5.1); Sodium 132 mmol/L (136-145)
[2021-11-19 05:12] LABS: Band 16 % (5-11); Hemoglobin 7.5 g/dL (14.0-18.0); Lymphocytes 2 % (21-51); MDiff Complete? YES; Mean Corpuscular HGB CONC 32.8 g/dL (32.0-36.0); Mean Corpuscular Hemoglobin 31.3 pg (27.0-31.0); Mean Corpuscular Volume 95.3 fL (78.0-98.0); Mean Platelet Volume 7.4 fL (7.4-10.4); Monocytes 5 % (0-10); Neutrophil 77 % (42-75); Platelet Count 85 thou/uL (130-400); Platelet Morphology Comment Appears Decreased; RBC Distribution Width 16.8 % (11.5-14.5); White Blood Cell (WBC) Count 7.6 thou/uL (4.8-10.8)
[2021-11-19] MEDS: HumaLOG 300 UNITS/3 ML VIAL SC PRN ×2 (06:32→11:04)
[2021-11-19] MEDS: Levothyroxine Sodium 100 MCG TAB PO SCH (06:49)
[2021-11-19] MEDS ORDERED: Acetaminophen 650 MG Suppository PR PRN (06:57)
[2021-11-19] MEDS: Carvedilol 3.125 MG TAB PO SCH ×2 (09:09→17:37)
[2021-11-19] MEDS: Dexamethasone 4 mg/ml Vial SLOW IVP SCH ×2 (09:11→21:02)
[2021-11-19] MEDS: Enoxaparin Sodium 40 MG/0.4 ML SYRINGE SC SCH ×2 (09:13→21:01)
[2021-11-19] MEDS: Transdermal Patch Removal TOP SCH (09:26)
[2021-11-19] MEDS: Amlodipine 10 MG TAB PO SCH (10:44)
[2021-11-19] MEDS: Aspirin 81 mg Enteric Coated Tablet PO SCH (10:44)
[2021-11-19] MEDS: Ascorbic Acid 500 mg Chewable Tablet PO SCH (10:44)
[2021-11-19] MEDS: hydrALAZINE 25 MG TAB PO SCH ×3 (10:45→21:00)
[2021-11-19] MEDS: guaiFENesin ER 600 MG TAB PO SCH ×2 (10:45→21:00)
[2021-11-19] MEDS: Cholecalciferol (Vitamin D3) 400 UNITS TAB PO SCH (10:45)
[2021-11-19] MEDS: Gabapentin 300 MG CAP PO SCH ×2 (10:45→15:27)
[2021-11-19] MEDS: Isosorbide Dinitrate 20 MG TAB PO SCH ×2 (10:45→21:02)
[2021-11-19] MEDS: DULoxetine 60 MG CAP PO SCH (10:45)
[2021-11-19] MEDS: cloNIDine 0.1 MG TAB PO SCH ×2 (10:45→21:00)
[2021-11-19] MEDS: rOPINIRole HCl 0.5 MG TAB PO SCH ×3 (10:46→21:03)
[2021-11-19] MEDS: Lantus 1000 UNITS/10 ML VIAL SC SCH ×2 (11:04→21:22)
[2021-11-19 11:20] LABS: CO2 Tension 44.2 mmHg (35.0-45.0); Calcium, Ionized (arterial) 1.09 mmol/L (1.12-1.30); Carboxyhemoglobin (COHb) 1.3 gm% (0.0-3.0); Hemoglobin (Hb) 8.2 g/dL (14.0-18.0); O2 Tension (PaO2), arterial 65.3 mmHg (> 70.0); Potassium - ABG Lab 4.89 mmol/L (3.70-5.30)
[2021-11-19 11:25] LABS: Puncture Site RRA
[2021-11-19 12:18] VITALS: BP 109/70
[2021-11-19] MEDS: Atorvastatin Calcium 40 MG TAB PO SCH (20:59)
[2021-11-19] MEDS: BARICITINIB 2 MG TAB PO SCH (21:00)
[2021-11-19] MEDS: Oxybutynin ER 5 MG TAB PO SCH (21:02)
[2021-11-19] MEDS: Tamsulosin HCl 0.4 MG CAP PO SCH (21:03)
[2021-11-19] MEDS: Lidocaine 5% Patch TD SCH (21:11)
[2021-11-20 03:48] LABS: ALT (SGPT) 18 U/L (8-55); AST (SGOT) 13 U/L (5-34); Albumin 2.5 g/dL (3.4-4.8); Alkaline Phosphatase 76 U/L (40-110); Bilirubin, Direct 1.6 mg/dL (0.1-0.3)
[2021-11-20] MEDS: Levothyroxine Sodium 100 MCG TAB PO SCH (07:10)
[2021-11-20 08:20] VITALS: TEMP 98
[2021-11-20 08:34] LABS: Actual Bicarbonate (HCO3a) 25.2 mEq/L (22-28); Base Excess (BEa) -3.9 mEq/L (-2.0 to +3.0); Calcium, Ionized (arterial) 1.13 mmol/L (1.12-1.30); Carboxyhemoglobin (COHb) 1.7 gm% (0.0-3.0); Hemoglobin (Hb) 8.8 g/dL (14.0-18.0); Potassium - ABG Lab 5.81 mmol/L (3.70-5.30)
[2021-11-20 08:35] LABS: ALV-art Gradient 288.625 mmHg (0-20); CO2 Tension 71.9 mmHg (35.0-45.0); O2 Tension (PaO2), arterial 49.3 mmHg (> 70.0); Puncture Site RRA; pH, Arterial 7.16 (7.35-7.45)
[2021-11-20] MEDS ORDERED: Sodium Bicarb 50 MEQ/50 ML VIAL ONE ×2 (08:44→08:45)
[2021-11-20] MEDS ORDERED: EPINEPHrine 1 MG/10 ML Abboject SYRINGE ONE ×3 (08:46→11:14)
[2021-11-20] MEDS ORDERED: Morphine 4 MG/ML VIAL SLOW IVP PRN (09:32)
[2021-11-20] MEDS ORDERED: Lorazepam 2 MG/ML VIAL SLOW IVP PRN (09:33)
[2021-11-20] MEDS: Carvedilol 3.125 MG TAB PO SCH (10:04)
[2021-11-20] MEDS: Transdermal Patch Removal TOP SCH (10:04)
[2021-11-20] MEDS: Amlodipine 10 MG TAB PO SCH (10:05)
[2021-11-20] MEDS: Cholecalciferol (Vitamin D3) 400 UNITS TAB PO SCH (10:05)
[2021-11-20] MEDS: Ascorbic Acid 500 mg Chewable Tablet PO SCH (10:05)
[2021-11-20] MEDS: Aspirin 81 mg Enteric Coated Tablet PO SCH (10:05)
[2021-11-20] MEDS: Lantus 1000 UNITS/10 ML VIAL SC SCH (10:06)
[2021-11-20] MEDS: Enoxaparin Sodium 40 MG/0.4 ML SYRINGE SC SCH (10:06)
[2021-11-20] MEDS: Gabapentin 300 MG CAP PO SCH (10:06)
[2021-11-20] MEDS: Dexamethasone 4 mg/ml Vial SLOW IVP SCH (10:06)
[2021-11-20] MEDS: hydrALAZINE 25 MG TAB PO SCH (10:06)
[2021-11-20] MEDS: guaiFENesin ER 600 MG TAB PO SCH (10:06)
[2021-11-20] MEDS: cloNIDine 0.1 MG TAB PO SCH (10:06)
[2021-11-20] MEDS: DULoxetine 60 MG CAP PO SCH (10:06)
[2021-11-20] MEDS: rOPINIRole HCl 0.5 MG TAB PO SCH (10:07)
[2021-11-20] MEDS: Isosorbide Dinitrate 20 MG TAB PO SCH (10:07)
[2021-11-20] MEDS ORDERED: BARICITINIB 1 MG TAB PO SCH (21:00)
== END 2021-11-20 15:10 | disposition expired | DRG 177 ==
LOC: ERS 21:10 → ERHOLD 23:14 → T4-B 11-04 17:40 → 2SW 11-15 01:47 → CCU 11-18 11:16 → IMCU/EMU 11-18 15:12
PROVIDERS: ADMIT Internal Medicine; ATTEND Internal Medicine
PROC: 8E0ZXY6 Isolation (ICD-10-PCS; principal; 2021-11-03)
PROC: 5A09557 Assistance with Respiratory Ventilation, Greater than 96 Consecutive Hours, Continuous Positive Airway Pressure (ICD-10-PCS; 2021-11-04)
PROC: XW033E5 Introduction of Remdesivir Anti-infective into Peripheral Vein, Percutaneous Approach, New Technology Group 5 (ICD-10-PCS; 2021-11-05)
PROC: 5A0935A Assistance with Respiratory Ventilation, Less than 24 Consecutive Hours, High Flow/Velocity Cannula (ICD-10-PCS; 2021-11-05)
PROC: XW0DXM6 Introduction of Baricitinib into Mouth and Pharynx, External Approach, New Technology Group 6 (ICD-10-PCS; 2021-11-08)
PROC: 5A0935A Assistance with Respiratory Ventilation, Less than 24 Consecutive Hours, High Flow/Velocity Cannula (ICD-10-PCS; 2021-11-17)
PROC: 3E033XZ Introduction of Vasopressor into Peripheral Vein, Percutaneous Approach (ICD-10-PCS; 2021-11-20)
DX: U07.1 COVID-19 (principal); J12.82 Pneumonia due to coronavirus disease 2019; J96.21 Acute and chronic respiratory failure with hypoxia; N17.9 Acute kidney failure, unspecified; Z68.42 Body mass index [BMI] 45.0-49.9, adult; Q60.0 Renal agenesis, unilateral; I13.0 Hypertensive heart and chronic kidney disease with heart failure and stage 1 through stage 4 chronic kidney disease, or unspecified chronic kidney disease; I50.30 Unspecified diastolic (congestive) heart failure; E03.9 Hypothyroidism, unspecified; Z66 Do not resuscitate; I25.10 Atherosclerotic heart disease of native coronary artery without angina pectoris; M10.9 Gout, unspecified; E11.22 Type 2 diabetes mellitus with diabetic chronic kidney disease; N18.30 Chronic kidney disease, stage 3 unspecified; N40.0 Benign prostatic hyperplasia without lower urinary tract symptoms; R91.1 Solitary pulmonary nodule; G47.33 Obstructive sleep apnea (adult) (pediatric); E66.01 Morbid (severe) obesity due to excess calories; G25.81 Restless legs syndrome; E78.00 Pure hypercholesterolemia, unspecified; D63.1 Anemia in chronic kidney disease; R00.1 Bradycardia, unspecified; R07.89 Other chest pain; D50.9 Iron deficiency anemia, unspecified; E78.5 Hyperlipidemia, unspecified; Z96.651 Presence of right artificial knee joint; Z95.1 Presence of aortocoronary bypass graft; Z99.81 Dependence on supplemental oxygen; Z79.82 Long term (current) use of aspirin; Z79.890 Hormone replacement therapy; Z79.899 Other long term (current) drug therapy; Z79.84 Long term (current) use of oral hypoglycemic drugs; Z98.52 Vasectomy status; Z98.49 Cataract extraction status, unspecified eye
CPT/HCPCS: 36415; 36416; 36600; 71045; 71275; 80048; 80053; 80076; 82805; 83605; 83735; 83880; 84100; 84145; 84484; 85025; 85652; 86140; 93005; 93010; 94660; 96372; 96374; J0171; J0248; J0360; J1100; J1650; J1815; J1940; J2270; J7050; J8540; Q0163